=== PATIENT | female | born 1950 | race Caucasian/White ===

== ENCOUNTER → 2016-11-17 | Outpatient (CLI) | payer MEDICARE, MEDICAID ==
[~2016-11-17] MED LIST: /ESOM40CA OR; /ONDA4TA OR; /WARF25TA OR; ACET65TA OR; ALLE25CA OR; ALPR0.25 OR; ATEN50TA2 OR; ATEN50TA2 PO; BISA10SU2 PR; BISA5TA OR; CALC500T49 OR; CALTTAB5 PO; CEFT500T OR; CENTTAB36 PO; CEPACOL MT; COUM2.5T17 PO; CYMBALTA PO; FERR325T OR; FISH1000; FLEXERIL PO; HYDROCODONE PO; LIDO4CRE2 EX; MILKSUS OR; MORP15TASA PO; MYRB50TA PO; NEUR300C OR; NEUR600T OR; NEXI40CA PO; NORV5TAB OR; NORV5TAB PO; NYSTPOW4 TOP; OXYC10TA97 OR; OXYC1TAB23 PO; PERC5TAB12 PO; PERC5TAB8 OR; PERC7.5T8 OR; PRED10TA2 OR; PRIN10TA OR; SERT50TA PO; SERTRALINE PO; SIMV20TA2 OR; TIZA4TAB OR; TRAM50TA2 OR; TRAZ-136 PO; VIST25CA PO; VITA500046 PO; VITA500T; VITA500T3 PO; VITAMIN D PO; XANA0.25 OR; ZOFR8TAB PO; ZOLO100T OR; glucosamine PO; lotrimin PV
--- NOTE | 2016-11-17 12:10 | REP ---
Clinical: Chest pain, hypertension and history of anxiety disorder . Comparison: 05/06/2015 . Technique: PA and lateral. Findings: The mediastinum and cardiac silhouette are normal. The lung valles are clear and without acute consolidation, effusion, or pneumothorax. The skeletal structures are intact and normal. Impression: 1. No acute cardiopulmonary process. Signed by Rodolfo Coyne MD 11/17/2016 12:01 P
[2016-11-17 12:19] LABS: MEAN CORPUSCULAR HEMOGLOBIN 32.9 pg (27.0-33.0); MEAN CORPUSCULAR HGB CONC 33.8 g/dl (32.0-36.5); MEAN CORPUSCULAR VOLUME 97.1 fl (80.0-96.0); WHITE BLOOD COUNT 10.6 K/mm3 (4.0-10.0)
[2016-11-17 12:22] LABS: INR 0.94
[2016-11-17 12:37] LABS: ALBUMIN/GLOBULIN RATIO 1.14 (1.00-1.93); ALKALINE PHOSPHATASE 91 U/L (45-117); ALT/SGPT 16 U/L (12-78); ANION GAP 4 MEQ/L (8-16); AST/SGOT 8 U/L (15-37); BILIRUBIN,TOTAL 0.7 MG/DL (0.2-1.0); BLOOD UREA NITROGEN 18 MG/DL (7-18); CALCIUM LEVEL 9.5 MG/DL (8.8-10.2); CARBON DIOXIDE LEVEL 33 MEQ/L (21-32); CHLORIDE LEVEL 108 MEQ/L (98-107); CREATININE FOR GFR 0.74 MG/DL (0.55-1.02); GLOMERULAR FILTRATION RATE > 60.0 (>45); GLUCOSE, FASTING 93 MG/DL (80-110); SODIUM LEVEL 145 MEQ/L (136-145); TOTAL PROTEIN 7.5 GM/DL (6.4-8.2)
[2016-11-17 12:57] LABS: CALCIUM OXALATE CRYSTALS LARGE
--- NOTE | 2016-11-18 07:42 | ECGEPIP ---
Stationary ECG Study [facility] Test Date: 2016-11-17 Pat Name: FCO LOREDO Department: Room: - Gender: F Chemical Radiation Technician: JIHAN : 1950 Requested By: Yovanny Levy Order Number: [id number] Reading MD: Colin Hartmann Measurements Intervals [place] Rate: 59 P: 56 AK: 219 QRS: 77 QRSD: 85 T: 20 QT: 438 QTc: 436 Interpretive Statements SINUS BRADYCARDIA WITH FIRST DEGREE AV BLOCK SIMILAR TO 06/19/11 Electronically Signed On 11-18-2016 7:42:27 EDT by Colin Hartmann
== END ==
LOC: M ADMPAT 10:13
PROVIDERS: ATTEND Orthopaedic Surgery
DX: Z01.818 Encounter for other preprocedural examination (principal); M16.12 Unilateral primary osteoarthritis, left hip; Z79.899 Other long term (current) drug therapy

== ENCOUNTER 2016-12-01 06:32 | Inpatient (IN) | payer MEDICARE, MEDICAID ==
[2016-11-17 10:29] VITALS: BP 114/72
--- NOTE | 2016-11-27 18:50 | HPE ---
DATE OF ADMISSION: 12/01/2016 CHIEF COMPLAINT: Left hip pain and stiffness. HISTORY: Patient is a pleasant 65-year-old female with continued left hip pain and stiffness. She has failed to improve with conservative measures. She continues to have pain with activities of daily living and weightbearing activities. She has consented for an elective left total hip arthroplasty with Dr. Levy. Medical optimization received from Dr. Kate's office and reviewed during appointment today. PAST MEDICAL HISTORY: Sleep apnea, anemia, anxiety, depression, hyperlipidemia, gastroesophageal reflux disease, history of stroke, history of Oneil's esophagus. CURRENT MEDICATIONS: - atenolol 50 mg twice day - hydroxyzine 25 mg as needed every 8 hours - Nexium 40 mg twice daily - trazodone 100 mg 1 tablet at bedtime - Zoloft 100 mg tablets two daily - vitamin D 35,000 units weekly - calcium with vitamin D twice a day - Myrbetriq 50 mg tablet once daily - Norvasc 5 mg once daily - vitamin B12 1,000 mcg daily - daily multivitamin - Percocet 5/325 every 6 hours as needed ALLERGIES: MORPHINE. PREVIOUS SURGICAL HISTORY: Right total hip arthroplasty, right total knee arthroplasty, lumpectomy, rotator cuff surgery, cholecystectomy, left carpal tunnel release, gastric bypass. SOCIAL HISTORY: Patient was never a smoker. She denies alcohol use. REVIEW OF SYSTEMS: Patient denies fevers, chills, nausea, vomiting, or diarrhea. She denies chest pain, shortness of breath, lightheadedness or headaches. She denies any cough or recent upper respiratory tract infection symptoms. She was recently treated for a urinary tract infection and has completed her Bactrim. She continues to have left hip pain with activities of daily living and weight bearing activities. PHYSICAL EXAMINATION: She is a well nourished, well developed female in no apparent distress. She does have bruising to the left zygomatic process and cheek status-post mechanical fall. She has been treated for that. Neck- is supple without lymphadenopathy or jugular venous distension. Heart- has a regular rate and rhythm. Lungs- clear to auscultation bilaterally. Abdomen- positive bowel sounds times four. Abdomen is soft and nontender to palpation. Musculoskeletal, patient is walking with a limp favoring the left thigh. Inspection of the left hip reveal no gross abnormalities. Her skin is intact. She does have decreased motion of the hip but does have 5/5 strength of the left lower extremity. Calf is soft and nontender to palpation with no palpable cords noted. Distally she is neurovascularly intact. VITAL SIGNS: Height 62 inches, weight 158 pounds, temperature 98.1, blood pressure 120/80, heart rate 62, respirations 9. LABORATORY DATA: Chest x-ray showed no acute cardiopulmonary process. EKG sinus bradycardia with first degree AV block. Sinus culture reveals normal riley. Urine analysis is cloudy and shows 1+protein, trace ketones, 2 urobilinogen, +1 bilirubin, +1 leukocyte esterase, 5 white blood cells, and +1 bacteria. Urine culture reveals E. Coli. This is susceptible to Bactrim and patient was treated appropriately with course of this antibiotic. Prothrombin time 12.7, INR 0.94, complete blood count WBC elevated at 10.6, RBCs 4.41, hemoglobin 14.5, hematocrit 42.9, platelets 285, erythrocyte sedimentation rate 22, comprehensive metabolic profile fasting glucose 93, BUN 18, creatinine for GFR 0.74, GFR greater than 60 , sodium 145, potassium 4.0, chloride elevated at 108, carbon dioxide elevated at 33, anion gap decreased at 4, calcium 9.5, AST decreased at 8, ALT 16, alkaline phosphatase 91, total bilirubin 0.7, total protein 7.5, albumin 4.0, albumin globulin ratio 1.14. ASSESSMENT: Left hip osteoarthritis with x-rays notable for end stage degenerative changes. PLAN: Patient has consented for an elective left total hip arthroplasty with Dr. Levy. Medical optimization by Dr. Kate received. My preceptor for this patient encounter was Dr. Yovanny Levy. The preceptor was physically present in the building during the encounter and was fully available. As needed, all aspects of the patient interview, examination, medical decision making process, and medical care plan development were reviewed and approved by the preceptor. The preceptor is aware and concurs with the plan as stated in the body of this note and will attest to such by his/her cosignature. ALBER
[~2016-12-01] VITALS: Ht 157.5 cm; Wt 76.2 kg
[2016-12-01] VITALS (11 sets, daily range): BP systolic 130–166; BP diastolic 67–87; O2SAT 97–99
[~2016-12-01 06:32] MED LIST changes: +BUPIVACAINE HCL 0.25% 30 ML VIAL As Ordered ONE; -COUM2.5T17 PO; -MORP15TASA PO; -PERC5TAB12 PO; +TRANEXAMIC ACID 100 MG/ML 10ML VIAL As Ordered ONE; +ceFAZolin 1GM INJ (J0690) As Ordered ONE
[2016-12-01] MEDS ORDERED: LR 1,000 ML IV ONE (06:45)
[2016-12-01] MEDS ORDERED: LR 1,000 ML IV SCH ×2 (06:45→10:00)
[2016-12-01] MEDS ORDERED: SCOPOLAMINE 1.5 MG TRANSDERMAL As Ordered ONE (07:20)
[2016-12-01] MEDS ORDERED: EPINEPHrine INJ 1 MG/ML 1ML AMP As Ordered ONE (07:22)
[2016-12-01] MEDS ORDERED: SCOPOLAMINE 1.5 MG TRANSDERMAL TOP ONE (08:00)
[2016-12-01] MEDS ORDERED: traZODone 100 MG TAB PO SCH (09:00)
[2016-12-01] MEDS ORDERED: MIDAZOLAM INJ 2 MG/2 ML VIAL (J2250) As Ordered ONE (09:03)
[2016-12-01] MEDS ORDERED: METOCLOPRAMIDE INJ 10MG/2ML VIAL (J2765) IV PRN (10:00)
[2016-12-01] MEDS ORDERED: ONDANSETRON 4MG/2ML VIAL (J2405) IV PRN ×2 (10:00→14:00)
[2016-12-01] MEDS ORDERED: MORPHINE 2 MG/ML 1ML SYRINGE IV PRN (10:00)
[2016-12-01] MEDS: fentaNYL 100 MCG/2 ML INJECTION (J3010) IV PRN ×4 (10:15→10:30)
[2016-12-01] MEDS ORDERED: HYDROmorphone HCL 1 MG/ML SYRINGE (J1170) IV PRN ×3 (10:15→11:45)
[2016-12-01] MEDS: PERCOCET 5MG/325MG TAB PO PRN ×2 (10:25→11:00)
[2016-12-01] MEDS ORDERED: PROPOFOL 200 MG/20 ML VIAL As Ordered ONE ×3 (10:44→13:21)
[2016-12-01] MEDS ORDERED: LIDOCAINE 2% INJ 100 MG/5 ML SDV (FOR ANES.) As Ordered ONE ×2 (10:45→13:21)
[2016-12-01] MEDS ORDERED: PHENYLEPHRINE INJ 10MG/ML VIAL (J2370) As Ordered ONE ×2 (10:45→13:21)
[2016-12-01] MEDS ORDERED: ePHEDrine SULFATE 25 MG/5 ML(5MG/ML) SYRINGE As Ordered ONE ×2 (10:45→13:21)
[2016-12-01] MEDS ORDERED: FLEET ENEMA PR PRN (11:00)
[2016-12-01] MEDS ORDERED: ACETAMINOPHEN TAB 650MG DOSE (2X325MG) PO PRN (11:00)
[2016-12-01] MEDS: ONDANSETRON 4MG/2ML VIAL (J2405) IV PRN (12:49)
[2016-12-01] MEDS: LR 1,000 ML IV SCH ×2 (12:52→20:39)
[2016-12-01] MEDS ORDERED: ONDANSETRON 4MG/2ML VIAL (J2405) As Ordered ONE (13:21)
[2016-12-01] MEDS ORDERED: MORPHINE 1MG/ML IN 0.9% NACL 100ML IV BAG IV PRN (14:00)
[2016-12-01] MEDS ORDERED: EPIDURAL/PCA KEYS XX PRN (14:00)
[2016-12-01] MEDS ORDERED: NALBUPHINE HCL 10 MG/ML AMP (J2300) IV PRN (14:00)
[2016-12-01] MEDS ORDERED: NALOXONE INJ 0.4 MG/1 ML VIAL (J2310) IV PRN (14:00)
[2016-12-01] MEDS: SERTRALINE 100 MG TAB PO SCH (16:40)
[2016-12-01] MEDS ORDERED: WARFARIN SOD 5 MG TAB PO ONE (17:00)
[2016-12-01] MEDS: traZODone 100 MG TAB PO SCH (20:38)
[2016-12-01] MEDS: hydrOXYzine 50 MG TAB PO SCH (20:38)
[2016-12-01] MEDS: diphenhydrAMINE INJ 50MG/ML VIAL (J1200) IV PRN (21:54)
--- NOTE | 2016-12-01 22:04 | RO ---
DATE OF PROCEDURE: 12/01/2016 PREOPERATIVE DIAGNOSIS: Left hip osteoarthritis. POSTOPERATIVE DIAGNOSIS: Left hip osteoarthritis. PROCEDURE: Left total hip arthroplasty using AML size 12 large +1.5 36 ball and a 52 cup. SURGEON: Dr. Yovanny Levy CERAMIC RESEARCH ENGINEER: Tash Levy ANESTHESIA: Spinal ESTIMATED BLOOD LOSS: 300 mL. COMPLICATIONS: None. INDICATIONS: A 65-year woman who has had gradually worsening left hip pain. She had severe arthritis on the x-ray, and she had failed conservative management, wished to proceed with surgical treatment. She understood the nature of the procedure and the risks of bleeding, infection, damage to nerves, vessels, persistent pain, wear, loosening, dislocation, leg length inequality, blood clots, medical problems, among others and she wished proceed. DESCRIPTION OF PROCEDURE: The patient was taken to the operating room and placed in the right lateral decubitus position on the [place] positioner. All areas were padded appropriately. The left hip was prepped and draped in the usual sterile fashion. A time-out was performed. I then created a longitudinal incision over the lateral aspect the left hip and sharp dissection was carried down through subcutaneous tissue, controlled hemostasis with cautery and then incised the fascia yanci. I then divided the anterior 40% of the abductor off the hip as I gradually externally rotated the femur and exposed the femoral neck. The hip was then dislocated, and this was done with the cafeteria assistant's help. I then used the canal initiating reamer followed by the canal reamers for the AML and I selected the AML because this is what she had on her contralateral side and was very happy with it and wanted the same prosthesis. I sequentially reamed up to 11.5 and had good bony purchase. I then cut off the neck at about of a fingerbreadth or less from the lesser trochanter. I then prepared the acetabulum. The anterior posterior retractors were placed. I removed soft tissue from around the acetabulum. It was evident at this point that she seemed to be somewhat of a bleeder, seemed to be bleeding from several different areas, so I coagulated with the cautery and actually used some TXA solution to help control some of bleeding and got this under good control. I then sequentially reamed up to a size 51, had good bleeding bone and good concentric reaming and it was evident there were some osteophytes anteriorly and posteriorly. I then placed the actual cup in, impacted it in place. It was somewhat difficult to seat, but was able to get it down well and had an excellent solid feel to it. I then removed osteophytes from around the acetabulum. I inserted the liner, 36 x 52, impacted it in place and made sure it was well seated. I had irrigated multiple times prior to this. I then prepared the canal, sequentially broached up to a 12 large, which fit very well. I used the calcar planer and then a trial 1.5 36 ball was placed and reduced the hip. This had excellent feel to it, the soft tissue tension was appropriate. She was stable in flexion internal rotation, extension external rotation. There was minimal shuck in full extension and the tissue tensions were appropriate. I then removed the trial components, irrigated, impacted the size 12 large AML stem down the canal. It fit very nicely. I then placed the actual ball over the dry taper and impacted it down. I made sure it was well seated. We then reduced the hip with the cafeteria assistant's help. I irrigated again copiously and put the hip through a range of motion. I was very pleased with the stability and soft tissue tension. I then closed the deep layer with #1 Vicryl suture and then the abductor repaired with #1 Vicryl suture with at least one stitch being placed through the bone. TXA solution was placed again in this wound. I then repaired the fascia yanci with interrupted #1 Vicryl suture and then a running Stratafix suture in each direction. The cafeteria assistant helped with this. I then closed the subcu with #2-0 Vicryl, the skin with anthony. She was taken to recovery room in stable condition. There were no known complications. The sterile dressing, of course, had been applied at the end of the case. The plan will be routine postop for hip replacement. The cafeteria assistant was instrumental in reducing and dislocating the hip and assisting in wound closure.
[2016-12-02] VITALS (9 sets, daily range): BP systolic 121–142; BP diastolic 57–77; O2SAT 95–99
[2016-12-02] MEDS: diphenhydrAMINE INJ 50MG/ML VIAL (J1200) IV PRN (02:26)
--- NOTE | 2016-12-02 03:25 | CR.PDOC ---
[facility] Consultation Consultation DATE OF CONSULTATION: 12/01 PRIMARY CARE PHYSICIAN: Dr. Kate REFERRING PROVIDER: Dr. Levy ATTENDING PHYSICIAN: Dr. Levy REASON FOR CONSULTATION/CHIEF COMPLAINT: Medical management after L hip arthroplasty. HISTORY OF PRESENT ILLNESS: 65 year old female underwent elective L hip replacement. FM was consulted for medical management. When seen postoperatively, she was in a fair amount of pain. (Morphine RETAIL CLIENT MANAGER had JUST been started by ortho.) ALLERGIES: Please see below. HOME MEDICATIONS: Please see below. PAST MEDICAL HISTORY: 1. obesity, s/p gastric bypass 2. CVA 3. anxiety and depression 4. pneumonia 5. GERD PAST SURGICAL HISTORY: 1. gastric bypass 2. replacement of right hip and right knee 3. left breast lumpectomy 4. cholecystectomy 5. left carpal tunnel release FAMILY HISTORY: Father: , unknown cause Mother: hypertension SOCIAL HISTORY: Daughter is supportive and present at beginning of exam. Per our records, she lives alone. She denies ETOH and tobacco. REVIEW OF SYSTEMS: CONSTITUTIONAL: no fevers or chills HEENT: no recent colds or allergy symptoms CARDIOVASCULAR: denies chest pain, pressure, or tightness RESPIRATORY: denies cough or shortness of breath GENITOURINARY: no dysuria, urinary frequency, or urinary urgency MUSCULOSKELETAL: L leg and back pain GASTROINTESTINAL: no nausea, vomiting, or diarrhea SKIN: facial bruising, band of L leg NEUROLOGICAL: no numbness or tingling in extremities PSYCHIATRIC: anxious PHYSICAL EXAMINATION: VITAL SIGNS: Please see below. GENERAL APPEARANCE: obese elderly female, resting in bed and tearful HEENT: PERRLA, no conjunctiva RESPIRATORY: clear to auscultation bilat CARDIOVASCULAR: regular without murmur, rub, or gallop ABDOMEN: soft, nontender EXTREMITIES: bandage L hip NEUROLOGICAL: PSYCHIATRIC: anxious LABORATORY DATA: Please see below. ASSESSMENT/PLAN: 1. Hold antinypertensives, as BP somewhat low at this time. Likely restart tomorrow. 2. Treat GERD with BID PPI. 3. Pain management through ortho. (RETAIL CLIENT MANAGER pump begun.) 4. Anxiety and depression: continue SSRI Vital Signs/I&O Vital Signs Date Time Temp Pulse Resp B/P (MAP) Pulse Ox O2 Delivery O2 Flow Rate FiO2 12/02/16 02:10 97 Nasal Cannula 2.0 12/02/16 02:00 97.1 90 18 126/57 (80) I&O- Last 24 Hours up to 6 AM 12/02/16 06:00 Intake Total 2660 ml Output Total 1025 ml Balance 1635 ml Allergies Coded Allergies: No Known Drug Allergy (Verified Allergy, Unknown, 11/17/16) Home Medications Scheduled (Centrum Adults) 1 Tab Tab, 1 TAB PO DAILY, (Reported) Amlodipine Besylate (Norvasc) 5 Mg Tab, 5 MG PO DAILY, (Reported) Atenolol (Atenolol) 50 Mg Tab, 50 MG PO BID, (Reported) Calcium Carbonate (Caltrate 600) 1,500 Mg Tab, 600 MG PO DAILY, (Reported) Cholecalciferol (Vitamin D) 5,000 Unit Tab, 5,000 UNIT PO DAILY, (Reported) Cyanocobalamin (Vitamin B-12) 500 Mcg Tab, 500 MCG PO DAILY, (Reported) Esomeprazole Magnesium Trihydr (Nexium) 40 Mg Cap, 40 MG PO DAILY, (Reported) Hydroxyzine Pamoate (Vistaril) 25 Mg Cap, 25 MG PO TID, (Reported) Mirabegron Base (Myrbetriq) 50 Mg Tab, 50 MG PO DAILY, (Reported) Sertraline Hcl (Sertraline HCl) 50 Mg Tab, 100 MG PO BID, (Reported) Trazodone HCl (Trazodone HCl) 100 Mg Tab, 100 MG PO DAILY, (Reported) Scheduled PRN Lidocaine (Lidocream) 4 % Cre, 4 % EX DAILYPRN PRN for PAIN, (Reported) Ondansetron HCl (Zofran) 8 Mg Tab, 8 MG PO TIDP PRN for NAUSEA, (Reported) Oxycodone/Acetaminophen (Oxycodone/Acetaminophen 5-325 mg) 1 Tab Tab, 1 TAB PO QIDP PRN for PAIN, (Reported) DARIO BARKSDALE DO Dec 02, 2016 03:25
[2016-12-02 06:52] LABS: MEAN CORPUSCULAR HEMOGLOBIN 31.9 pg (27.0-33.0); MEAN CORPUSCULAR HGB CONC 32.8 g/dl (32.0-36.5); MEAN CORPUSCULAR VOLUME 97.1 fl (80.0-96.0); RED CELL DISTRIBUTION WIDTH 12.9 % (11.5-14.5); WHITE BLOOD COUNT 6.6 K/mm3 (4.0-10.0)
[2016-12-02 06:56] LABS: INR 1.49
[2016-12-02] MEDS ORDERED: PERCOCET 5MG/325MG TAB PO PRN (07:00)
[2016-12-02] MEDS: MOM 30ML SUSPENSION UDC PO SCH (07:48)
[2016-12-02] MEDS: ONDANSETRON 4 MG TAB (S0181) PO PRN (07:48)
[2016-12-02] MEDS: SENOKOT S TAB PO SCH ×2 (07:48→20:38)
[2016-12-02] MEDS: MIRALAX *UNIT DOSE* 17GM PACKET PO SCH (07:48)
[2016-12-02] MEDS: OMEPRAZOLE 20 MG CAP PO SCH ×2 (07:49→20:39)
[2016-12-02] MEDS: PERCOCET 5MG/325MG TAB PO PRN ×4 (07:49→20:38)
[2016-12-02] MEDS: SERTRALINE 100 MG TAB PO SCH (07:49)
--- NOTE | 2016-12-02 08:54 | REP ---
AP LATERAL LEFT HIP, TWO VIEWS: HISTORY: Hip replacement. COMPARISON: 11/06/2013. The patient is status post left hip arthroplasty. There is no acute fracture or dislocation. A small amount of air and surgical anthony are present in the overlying soft tissue. IMPRESSION: The patient is status post left hip arthroplasty. There is anatomic alignment. Signed by Hussain Degroot MD 12/02/2016 09:25 A
[2016-12-02] MEDS: diphenhydrAMINE 25 MG CAP PO PRN ×2 (11:12→17:57)
--- NOTE | 2016-12-02 15:22 | IPNPDOC ---
Subjective Date Seen The patient was seen on 12/02/16. Subjective Chief Complaint/HPI The patient is a 65-year-old female admitted with a reason for visit of Left Hip Arthritis. Events since last encounter Patient states that pain is well controlled on PO pain medications and she is able to walk with assistance to the bathroom. General: Denies: Chills, Fatigue Constitutional: Denies: Fever ENT: Denies: Head Aches Pulmonary: Denies: Dyspnea, Cough Cardiovascular: Denies: Chest Pain, Palpitations Gastrointestinal: Denies: Abdominal Pain Objective Physical Examination General Exam: Positive: Alert, Cooperative, No Acute Distress ENT Exam: Positive: Atraumatic, Mucous membr. moist/pink Chest Exam: Positive: Clear to auscultation, Normal air movement Heart Exam: Positive: Rate Normal, Regular Rhythm, Normal S1, Normal S2, Negative: Murmurs Abdomen Exam: Positive: Soft, Negative: Tenderness Extremity Exam: Negative: Edema Neuro Exam: Positive: Normal Speech, Cranial Nerves 3-12 NL Psych Exam: Positive: Mental status NL, Mood NL Assessment /Plan Problems (1) Osteoarthritis of left hip Status: Acute Response to Treatment: Stable Problem Text: POD#1 s/p Left hip arthroplasty; pain management per Ortho (2) Hypertension Status: Chronic Response to Treatment: Stable Problem Text: Continue to hold antihypertensives as BP is within normal limits. She is normally on atenolol 50 mg daily. Please note that home medication list is incorrect - patient states Dr. Kate recently lowered her amlodipine from 5 mg daily to 2.5 mg daily, so she should be discharged on 2.5 mg dose. (3) Depression Status: Chronic Problem Text: Continue sertraline, trazodone (4) GERD (gastroesophageal reflux disease) Status: Chronic Problem Text: Continue PPI Plan/VTE VTE Prophylaxis Ordered?: Yes (warfarin) VS, I&O, 24H, Fishbone Vital Signs/I&O Vital Signs Date Time Temp Pulse Resp B/P (MAP) Pulse Ox O2 Delivery O2 Flow Rate FiO2 12/02/16 15:00 Room Air 12/02/16 14:00 98.0 87 18 133/73 (93) 93 12/02/16 10:00 2.0 I&O- Last 24 Hours up to 6 AM 12/02/16 06:00 Intake Total 2780 ml Output Total 1575 ml Balance 1205 ml Laboratory Data 24H LABS Laboratory Tests 2 12/02/16 06:33: Prothrombin Time 18.4H, Prothromb Time International Ratio 1.49 CBC/BMP Laboratory Tests 12/02/16 06:33 Red Blood Count 3.50 L, Mean Corpuscular Volume 97.1 H, Mean Corpuscular Hemoglobin 31.9, Mean Corpuscular Hemoglobin Concent 32.8, Red Cell Distribution Width 12.9 PIYUSH BAR MD Dec 02, 2016 15:22
[2016-12-02] MEDS ORDERED: WARFARIN SOD 5 MG TAB PO ONE (17:00)
[2016-12-02] MEDS: traZODone 100 MG TAB PO SCH (20:37)
[2016-12-02] MEDS: hydrOXYzine 50 MG TAB PO SCH (20:38)
[2016-12-03] MEDS: PERCOCET 5MG/325MG TAB PO PRN ×6 (00:54→23:08)
[2016-12-03] MEDS: ONDANSETRON 4 MG TAB (S0181) PO PRN (04:28)
[2016-12-03 06:00] VITALS: BP 125/65
[2016-12-03 08:29] LABS: INR 1.76
[2016-12-03 08:36] LABS: MEAN CORPUSCULAR HEMOGLOBIN 32.2 pg (27.0-33.0); MEAN CORPUSCULAR HGB CONC 34.1 g/dl (32.0-36.5); MEAN CORPUSCULAR VOLUME 94.5 fl (80.0-96.0)
[2016-12-03] MEDS: MIRALAX *UNIT DOSE* 17GM PACKET PO SCH (08:37)
[2016-12-03] MEDS: MORPHINE 15 MG SA TAB PO SCH ×2 (08:37→20:49)
[2016-12-03] MEDS: OMEPRAZOLE 20 MG CAP PO SCH ×2 (08:37→20:48)
[2016-12-03] MEDS: SENOKOT S TAB PO SCH ×2 (08:37→20:49)
[2016-12-03] MEDS: ATENOLOL 50 MG TAB PO SCH ×2 (08:40→20:49)
[2016-12-03] MEDS: SERTRALINE 100 MG TAB PO SCH (08:41)
[2016-12-03] MEDS: MOM 30ML SUSPENSION UDC PO SCH (08:43)
--- NOTE | 2016-12-03 09:33 | IPNPDOC ---
Subjective Date Seen The patient was seen on 12/03/16. Subjective Chief Complaint/HPI The patient is a 65-year-old female admitted with a reason for visit of Left Hip Arthritis. Events since last encounter Pt reports reasonably pain control. She is urinating without difficulty. She has not had a BM since admission, she has bowel care ordered. Nursing without new concerns. General: Denies: Fatigue Constitutional: Denies: Chills, Fever Pulmonary: Denies: Dyspnea, Cough Cardiovascular: Denies: Chest Pain, Palpitations Gastrointestinal: Denies: Nausea, Vomiting, Diarrhea Neurological: Reports: Weakness Psych: Reports: Mood Normal Objective Physical Examination General Exam: Positive: Alert, Cooperative, No Acute Distress ENT Exam: Positive: Atraumatic, Mucous membr. moist/pink Chest Exam: Positive: Clear to auscultation, Normal air movement Heart Exam: Positive: Rate Normal, Regular Rhythm, Normal S1, Normal S2, Negative: Murmurs Abdomen Exam: Positive: Soft, Negative: Tenderness Extremity Exam: Negative: Edema Neuro Exam: Positive: Normal Speech, Cranial Nerves 3-12 NL Psych Exam: Positive: Mental status NL, Mood NL Assessment /Plan Problems (1) Osteoarthritis of left hip Status: Acute Response to Treatment: Stable Problem Text: POD#2 s/p Left hip arthroplasty; pain management, bowel care, anticoagulation per Ortho (2) Hypertension Status: Chronic Response to Treatment: Stable Problem Text: 12/03 Will resume atenolol 50 mg BID, given her elevated HR, pressures stable, monitor. Amlodipine 2.5 mg remains held. (3) Depression Status: Chronic Problem Text: Continue sertraline, trazodone (4) GERD (gastroesophageal reflux disease) Status: Chronic Problem Text: Continue PPI Plan/VTE VTE Prophylaxis Ordered?: Yes (warfarin) Plan Family Medicine Attending Note: I saw and examined Ms. Roper this morning; I d/w MARIA LUISA Goff and I agree with her note above. I agree with adding back atenolol, and I would recommend restarting amlodipine 2.5 mg upon discharge. ( KES) VS, I&O, 24H, Fishbone Vital Signs/I&O Vital Signs Date Time Temp Pulse Resp B/P (MAP) Pulse Ox O2 Delivery O2 Flow Rate FiO2 12/03/16 08:40 85 134/75 12/03/16 08:37 20 12/03/16 06:00 97.0 93 Room Air 12/02/16 10:00 2.0 I&O- Last 24 Hours up to 6 AM 12/03/16 06:00 Intake Total 1490 ml Output Total 1725 ml Balance -235 ml Laboratory Data 24H LABS Laboratory Tests 2 12/03/16 07:58: Prothrombin Time 21.1H, Prothromb Time International Ratio 1.76 CBC/BMP Laboratory Tests 12/03/16 07:58 Red Blood Count 3.29 L, Mean Corpuscular Volume 94.5, Mean Corpuscular Hemoglobin 32.2, Mean Corpuscular Hemoglobin Concent 34.1, Red Cell Distribution Width 13.0 ANTHONY GARRETT PA-C Dec 03, 2016 09:33 PIYUSH BAR MD Dec 03, 2016 14:50
[2016-12-03 10:53] VITALS: O2SAT 96
[2016-12-03 14:00] VITALS: BP 129/68
[2016-12-03] MEDS: diphenhydrAMINE 25 MG CAP PO PRN (15:22)
[2016-12-03] MEDS ORDERED: WARFARIN SOD 5 MG TAB PO ONE (17:00)
[2016-12-03] MEDS: traZODone 100 MG TAB PO SCH (20:49)
[2016-12-03] MEDS: hydrOXYzine 50 MG TAB PO SCH (20:49)
[2016-12-03 20:56] VITALS: O2SAT 92
[2016-12-03 22:00] VITALS: BP 100/65
[2016-12-04] MEDS: diphenhydrAMINE 25 MG CAP PO PRN ×3 (02:54→20:30)
[2016-12-04] MEDS: PERCOCET 5MG/325MG TAB PO PRN ×5 (02:55→21:59)
[2016-12-04 06:00] VITALS: BP 111/64
[2016-12-04 07:19] LABS: INR 1.99
[2016-12-04] MEDS: MOM 30ML SUSPENSION UDC PO SCH ×2 (08:21→08:23)
[2016-12-04] MEDS: MIRALAX *UNIT DOSE* 17GM PACKET PO SCH (08:21)
[2016-12-04] MEDS: ATENOLOL 50 MG TAB PO SCH ×2 (08:22→20:30)
[2016-12-04] MEDS: SERTRALINE 100 MG TAB PO SCH (08:22)
[2016-12-04] MEDS: SENOKOT S TAB PO SCH ×2 (08:22→20:30)
[2016-12-04] MEDS: OMEPRAZOLE 20 MG CAP PO SCH ×2 (08:22→20:30)
[2016-12-04] MEDS: MORPHINE 15 MG SA TAB PO SCH ×2 (08:23→20:31)
[2016-12-04 14:00] VITALS: BP 110/66
[2016-12-04] MEDS ORDERED: WARFARIN SOD 2.5 MG TAB PO ONE (17:00)
[2016-12-04] MEDS: ONDANSETRON 4MG/2ML VIAL (J2405) IV PRN (20:30)
[2016-12-04] MEDS: traZODone 100 MG TAB PO SCH (20:30)
[2016-12-04] MEDS: hydrOXYzine 50 MG TAB PO SCH (20:31)
[2016-12-04 22:00] VITALS: BP 122/69
[2016-12-05] MEDS: PERCOCET 5MG/325MG TAB PO PRN (03:51)
[2016-12-05 06:00] VITALS: BP 109/54
[2016-12-05 06:10] LABS: INR 2.07
[2016-12-05] MEDS ORDERED: COUM2.5T17 PO (07:29)
[2016-12-05] MEDS ORDERED: MORP15TASA PO (07:29)
[2016-12-05] MEDS ORDERED: PERC5TAB12 PO (07:29)
[2016-12-05] MEDS: SENOKOT S TAB PO SCH (09:00)
[2016-12-05] MEDS: MORPHINE 15 MG SA TAB PO SCH (09:00)
[2016-12-05] MEDS: MOM 30ML SUSPENSION UDC PO SCH (09:00)
[2016-12-05] MEDS: MIRALAX *UNIT DOSE* 17GM PACKET PO SCH (09:23)
[2016-12-05 09:25] VITALS: BP 109/54
[2016-12-05] MEDS: SERTRALINE 100 MG TAB PO SCH (09:25)
[2016-12-05] MEDS: ATENOLOL 50 MG TAB PO SCH (09:25)
[2016-12-05] MEDS: OMEPRAZOLE 20 MG CAP PO SCH (09:26)
--- NOTE | 2016-12-05 15:10 | IPNPDOC ---
Subjective Date Seen The patient was seen on 12/05/16. Subjective Chief Complaint/HPI The patient is a 65-year-old female admitted with a reason for visit of Left Hip Arthritis. Objective Physical Examination General Exam: Positive: Alert, Cooperative, No Acute Distress ENT Exam: Positive: Atraumatic, Mucous membr. moist/pink Chest Exam: Positive: Clear to auscultation, Normal air movement Heart Exam: Positive: Rate Normal, Regular Rhythm, Normal S1, Normal S2, Negative: Murmurs Abdomen Exam: Positive: Soft, Negative: Tenderness Extremity Exam: Negative: Edema Neuro Exam: Positive: Normal Speech, Cranial Nerves 3-12 NL Psych Exam: Positive: Mental status NL, Mood NL Assessment /Plan Problems (1) Osteoarthritis of left hip Status: Acute Response to Treatment: Stable Problem Text: POD#4 s/p Left hip arthroplasty; pain management, bowel care, anticoagulation per Ortho (2) Hypertension Status: Chronic Response to Treatment: Stable Problem Text: 12/05 BPs 110-120/60s; therefore, amlodipine 2.5 QD held on d/c c instruction to bring BID HBPs to PCP at f/u in 7-10D 12/03 Will resume atenolol 50 mg BID, given her elevated HR, pressures stable, monitor.. (3) Depression Status: Chronic Problem Text: Stable on home regimen (4) GERD (gastroesophageal reflux disease) Status: Chronic Problem Text: Continue PPI Plan/VTE VTE Prophylaxis Ordered?: Yes (warfarin) VS, I&O, 24H, Fishbone Vital Signs/I&O Vital Signs Date Time Temp Pulse Resp B/P (MAP) Pulse Ox O2 Delivery O2 Flow Rate FiO2 12/05/16 09:25 68 109/54 12/05/16 09:00 20 12/05/16 06:00 97.5 93 Room Air 12/03/16 10:53 0.0 I&O- Last 24 Hours up to 6 AM 12/05/16 06:00 Intake Total 1800 ml Output Total 1100 ml Balance 700 ml Laboratory Data 24H LABS Laboratory Tests 2 12/05/16 05:31: Prothrombin Time 24.0H, Prothromb Time International Ratio 2.07 Marv Bansal M.D. Dec 05, 2016 15:10
--- NOTE | 2016-12-08 14:45 | DSES ---
DATE OF ADMISSION: 12/01/2016 DATE OF DISCHARGE: 12/05/2016 ATTENDING PHYSICIAN: Dr. Yovanny Levy ADMITTING DIAGNOSIS: Left hip osteoarthritis. OTHER DIAGNOSES: 1. Obstructive sleep apnea. 2. Anemia. 3. Anxiety. 4. Depression. 5. Hyperlipidemia. 6. Hypertension. 7. Gastroesophageal reflux disease (GERD). 8. History of stroke. 9. History of Oneil's esophagus. DISCHARGE DIAGNOSIS: Left hip osteoarthritis, status post left total hip arthroplasty. HISTORY OF PRESENT ILLNESS: The patient is a pleasant 65-year-old female with continuing left hip pain and stiffness. She failed to improve with conservative measures, so she consented for an elective left total hip arthroplasty with Dr. Levy. Operation performed was left total hip arthroplasty. HOSPITALIZATION COURSE: The patient underwent a left total hip arthroplasty under spinal anesthesia, which was uneventful. Her hospital course was without complication and she was up with physical therapy (PT) per their protocol, weight bearing as tolerated on the left lower extremity. The patient was discharged on oral pain medications and will resume her preoperative medications and diet. She will use her thromboembolic deterrent stockings and take her Coumadin for 30 days postoperatively to prevent deep vein thrombosis (DVT). She will followup in our office in 12 to 14 days for a wound check and staple removal. She does agree to contact our office sooner if there is any increased pain, drainage, bleeding, redness, numbness and tingling in the left lower extremity, fever greater than 101 degrees or any other concerns. Please see medical record for additional details. [id number]
== END 2016-12-05 16:00 | disposition home health service (06) | DRG 470 ==
LOC: M OR 06:32 → M MS5PR 11:55
PROVIDERS: ADMIT Orthopaedic Surgery; ATTEND Orthopaedic Surgery
PROC: 0SRB02Z Replacement of Left Hip Joint with Metal on Polyethylene Synthetic Substitute, Open Approach (ICD-10-PCS; principal; 2016-12-01 07:30)
DX: M16.12 Unilateral primary osteoarthritis, left hip (principal); G47.30 Sleep apnea, unspecified; F41.9 Anxiety disorder, unspecified; D64.9 Anemia, unspecified; F32.9 Major depressive disorder, single episode, unspecified; E78.5 Hyperlipidemia, unspecified; R26.89 Other abnormalities of gait and mobility; I10 Essential (primary) hypertension; K21.9 Gastro-esophageal reflux disease without esophagitis; E66.9 Obesity, unspecified; K22.70 Barrett's esophagus without dysplasia; Z86.73 Personal history of transient ischemic attack (TIA), and cerebral infarction without residual deficits; Z79.891 Long term (current) use of opiate analgesic; Z79.899 Other long term (current) drug therapy; Z96.641 Presence of right artificial hip joint; Z96.651 Presence of right artificial knee joint; Z98.84 Bariatric surgery status; Z68.30 Body mass index [BMI] 30.0-30.9, adult

== ENCOUNTER → 2017-01-07 | Outpatient (REF) | payer MEDICARE, MEDICAID ==
[~2017-01-07] MED LIST changes: -BUPIVACAINE HCL 0.25% 30 ML VIAL As Ordered ONE; +COUM2.5T17 PO; +MORP15TASA PO; +PERC5TAB12 PO; -TRANEXAMIC ACID 100 MG/ML 10ML VIAL As Ordered ONE; -ceFAZolin 1GM INJ (J0690) As Ordered ONE
[2017-01-15 00:06] LABS: GC Carboxy THC 25 ng/mL (Cutoff=10)
== END ==
LOC: M LAB REF 18:15
PROVIDERS: ATTEND Physical Medicine & Rehabilitation
DX: M47.27 Other spondylosis with radiculopathy, lumbosacral region (principal)
CPT/HCPCS: 80307; G0480

== ENCOUNTER → 2017-01-15 | Outpatient (CLI) | payer MEDICARE, MEDICAID ==
--- NOTE | 2017-01-15 14:26 | REPMRS ---
Patient History The patient states she had a clinical breast exam in December 2016. Patient is postmenopausal. Family history of breast cancer in maternal aunt at age 50 and prostate cancer in maternal uncle. Digital Mammo Diagnostic Bilateral: January 15, 2017 - Exam #: [id number] Bilateral CC and MLO view(s) were taken. Technologist: Muna Bowens, Technologist Prior study comparison: August 09, 2014, bilateral digital mammo screening bilat performed at [facility], [place]. February 01, 2013, digital mammo diagnostic bilateral performed at [facility], [place]. FINDINGS: There are scattered fibroglandular densities. There has been no change in the appearance of the mammogram from the prior studies. There is a mild amount of residual fibroglandular tissue which is fairly symmetric. There is no interval development of dominant mass, architectural distortion, or clustered microcalcification suggestive of malignancy. ASSESSMENT: BI-RADS/ACR category 1 mammogram. Negative. Recommendation Routine screening mammogram in 1 year (for women over age 40). This mammogram was interpreted with the aid of an FDA-approved computer-aided dectection system. Electronically Signed By: Brian Roper MD 01/15/17 [id number]
== END ==
LOC: M RAD 12:16
PROVIDERS: ATTEND Family Medicine
DX: N64.4 Mastodynia (principal); Z78.0 Asymptomatic menopausal state

== ENCOUNTER → 2017-02-02 | Outpatient (CLI) | payer MEDICARE, MEDICAID ==
--- NOTE | 2017-02-03 08:28 | REP ---
CT MAXILLOFACIAL WITHOUT CONTRAST: 02/02/2017. CLINICAL HISTORY: 2 months post trauma. Pain left cheek. Change in appearance of the periorbital tissues. TECHNIQUE: Standard axial soft-tissue and bone windows with coronal reconstructions. FINDINGS: Nasal septum deviated towards the right side anteriorly and slightly towards the left posteriorly. Nasal spine of the maxilla and the nasal bones are without fracture. The orbital floors and maxillary sinus morales are intact. There is a septum inside each maxillary sinus as anatomic variation. No air-fluid levels or mucosal thickening. No fracture or healing fracture of the maxillary sinuses. Orbital struts, medial orbital wall, superior orbital ridge and the zygomatic arches are all intact. Ethmoid, frontal and sphenoid sinuses are clear. The globes, optic nerves, extraocular muscles and intraconal fat were all unremarkable. No periorbital swelling or mass. The skull base including mastoids and visualized portions of mandible are all unremarkable. The maxillary alveolar ridge is edentulous. There are some missing mandibular teeth as well. Basal ganglia calcifications are seen in a symmetric pattern bilaterally. Degenerative changes in the upper cervical spine with the ring of C1 intact with no evidence of fracture of those visible cervical levels. Submandibular glands, parotid glands, anterior and posterior cervical chain nodes are all unremarkable. IMPRESSION: 1. There is no evidence of soft tissue mass, fracture or healing fracture, orbital or periorbital abnormalities. Sinuses without any mucosal thickening. 2. Minimal septal deviation toward the left posteriorly and towards the right anteriorly. 3. Incidental note made of bilateral basal ganglia calcifications, a benign process. Signed by Kamaljit Diaz MD 02/03/2017 08:50 A
== END ==
LOC: M RAD 17:58
PROVIDERS: ATTEND Family Medicine
DX: J34.2 Deviated nasal septum (principal); G23.8 Other specified degenerative diseases of basal ganglia

== ENCOUNTER → 2017-02-10 | Outpatient (REF) | payer MEDICARE, MEDICAID ==
[2017-02-22 12:17] LABS: SUMMARY SEE SEPARATE REPORT
== END ==
LOC: M LAB REF 15:27
PROVIDERS: ATTEND Physical Medicine & Rehabilitation
DX: M48.07 Spinal stenosis, lumbosacral region (principal); Z79.899 Other long term (current) drug therapy

== ENCOUNTER → 2017-04-20 | Outpatient (CLI) | payer MEDICARE, MEDICAID ==
[~2017-04-20] MED LIST changes: +ARTI99.0 OU
[2017-04-20 12:07] LABS: MEAN CORPUSCULAR HEMOGLOBIN 30.6 pg (27.0-33.0); MEAN CORPUSCULAR HGB CONC 33.3 g/dl (32.0-36.5); MEAN CORPUSCULAR VOLUME 91.9 fl (80.0-96.0); PLATELET COUNT, AUTOMATED 323 10^3/uL (150-450); RED CELL DISTRIBUTION WIDTH 13.3 % (11.5-14.5); WHITE BLOOD COUNT 6.7 10^3/uL (4.0-10.0)
[2017-04-20 12:12] LABS: CALCIUM OXALATE CRYSTALS SMALL
[2017-04-20 12:17] LABS: INR 0.85
[2017-04-20 12:29] LABS: ALBUMIN 3.8 GM/DL (3.2-5.2); ALBUMIN/GLOBULIN RATIO 1.06 (1.00-1.93); ALKALINE PHOSPHATASE 102 U/L (45-117); ALT/SGPT 17 U/L (12-78); ANION GAP 4 MEQ/L (8-16); AST/SGOT 13 U/L (7-37); BILIRUBIN,TOTAL 0.7 MG/DL (0.2-1.0); BLOOD UREA NITROGEN 20 MG/DL (7-18); CALCIUM LEVEL 9.6 MG/DL (8.8-10.2); CARBON DIOXIDE LEVEL 33 MEQ/L (21-32); CHLORIDE LEVEL 105 MEQ/L (98-107); CREATININE FOR GFR 0.67 MG/DL (0.55-1.02); GLOMERULAR FILTRATION RATE > 60.0 (>45); GLUCOSE, FASTING 106 MG/DL (80-110); SODIUM LEVEL 142 MEQ/L (136-145); TOTAL PROTEIN 7.4 GM/DL (6.4-8.2)
[2017-04-20 12:46] LABS: ERYTHROCYTE SEDIMENTATION RATE 21 mm/hr (0-30)
--- NOTE | 2017-04-20 13:53 | ECGEPIP ---
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
== END ==
LOC: M ADMPAT 10:02
PROVIDERS: ATTEND Orthopaedic Surgery
DX: M17.12 Unilateral primary osteoarthritis, left knee (principal); Z79.899 Other long term (current) drug therapy; Z79.01 Long term (current) use of anticoagulants

== ENCOUNTER 2017-05-03 09:46 | Inpatient (IN) | payer MEDICARE, MEDICAID ==
[2017-04-20 10:57] VITALS: BP 96/70
--- NOTE | 2017-04-30 21:53 | HPE ---
DATE OF ADMISSION: 05/03/2017 CHIEF COMPLAINT: Left knee pain. HISTORY OF PRESENT ILLNESS: This is a pleasant 66-year-old female with progressively worsening left knee pain and stiffness. She has failed to improve with conservative treatment. She has elected for surgery for her continued symptoms. She has pain with weightbearing activities and her activities of daily living. X-rays of her knee are notable for advanced osteoarthritis of the left knee joint. She has consented for a left total knee arthroplasty by Dr. Yovanny Levy. Medical optimization was performed by Dr. Kate's office. ALLERGIES: None. CURRENT MEDICATIONS: - Percocet 5/325 one by mouth four times a day - gabapentin 100 mg three times a day - lidocaine 5% patch as directed - Nexium 40 mg a day - Myrbetriq one by mouth every day - Vistaril 25 mg - lidocaine HCl 3% cream, apply as needed - sertraline HCl 100 mg every day - Zofran 4 mg every eight hours as needed - atenolol 50 mg twice a day - recently placed on Augmentin for a left toe wound PAST MEDICAL HISTORY: Includes high blood pressure, hypothyroidism and anxiety and depression. PAST SURGICAL HISTORY: Includes right total hip, right total knee, left breast lumpectomy, left carpal tunnel, left total hip arthroplasty, and cholecystectomy. SOCIAL HISTORY: This patient is retired. Does not smoke, does not drink. FAMILY HISTORY: Noncontributory. REVIEW OF SYSTEMS: She denies chest pain, heart palpitations, cough, wheezing, difficulty breathing and shortness of breath. She denies abdominal pain, nausea, vomiting, diarrhea or constipation. She denies recent upper respiratory infection or urinary tract infection symptoms. She does complain of persistent pain in the left knee and pain with weightbearing activities in the left knee. PHYSICAL EXAMINATION GENERAL: She is well-nourished, well-developed, in no acute distress alert female. She walks with a moderate limp favoring the left lower extremity. She is not using assistive devices. VITAL SIGNS: She is 62 inches tall, weighs 181 pounds with a temperature of 97.4, blood pressure 140/78, pulse of 64 and respirations of 12. NECK: Supple without adenopathy or jugular venous distension. There were no carotid bruits appreciated upon auscultation. LUNGS: Clear to auscultation without rales or wheeze throughout. HEART: Regular rate and rhythm. ABDOMEN: Bowel sounds were present. EXTREMITIES: Examination of the knee revealed intact skin. She had decreased range of motion secondary to pain and stiffness. The limb was neurovascularly intact. LABORATORY DATA: EKG showed sinus bradycardia with sinus arrhythmia with first-degree AV block. Chest x-ray showed no acute cardiopulmonary disease processes. UA showed 1+ protein, trace ketones, 2+ leukocyte esterase, otherwise within normal limits with a specific gravity 1.027. Protime 11.6, INR 0.85. Glucose 106, BUN 20, creatinine 0.67, sodium 142, potassium 5.0. CBC was within normal limits. Sed rate was 21. Urine culture showed no growth. Nasal and sinus culture showed normal riley. IMPRESSION: Symptomatic osteoarthritis of the left knee joint. PLAN: Consented for a left total knee arthroplasty by Dr. Yovanny Levy. DATE OF 1950. .
[2017-05-03] VITALS (8 sets, daily range): BP systolic 111–148; BP diastolic 57–79; O2SAT 98
[~2017-05-03] VITALS: Ht 160 cm; Wt 81.9 kg
[2017-05-03] MEDS ORDERED: LR 1,000 ML IV SCH ×2 (10:00→14:00)
[2017-05-03] MEDS ORDERED: MIDAZOLAM INJ 2 MG/2 ML VIAL (J2250) As Ordered ONE ×2 (10:06→10:57)
[2017-05-03] MEDS ORDERED: LIDOCAINE 2% INJ 100 MG/5 ML SDV (FOR ANES.) As Ordered ONE (10:06)
[2017-05-03] MEDS ORDERED: PROPOFOL 200 MG/20 ML VIAL As Ordered ONE (10:06)
[2017-05-03] MEDS ORDERED: fentaNYL 100 MCG/2 ML INJECTION (J3010) As Ordered ONE ×2 (10:09→10:57)
[2017-05-03] MEDS ORDERED: EPINEPHrine INJ 1 MG/ML 1ML AMP As Ordered ONE (10:52)
[2017-05-03] MEDS ORDERED: BUPIVACAINE LIPOSOME/PF 1.3% 20 ML VIAL (13.3MG/ML)(EXPAREL) As Ordered ONE (10:52)
[2017-05-03] MEDS ORDERED: TRANEXAMIC ACID 100 MG/ML 10ML VIAL As Ordered ONE (10:52)
[2017-05-03] MEDS ORDERED: ceFAZolin 1GM INJ (J0690 PER 500MG) As Ordered ONE (10:52)
[2017-05-03] MEDS ORDERED: fentaNYL 100 MCG/2 ML INJECTION (J3010) IV ONE (12:00)
[2017-05-03] MEDS ORDERED: MIDAZOLAM INJ 2 MG/2 ML VIAL (J2250) IV ONE (12:00)
--- NOTE | 2017-05-03 12:05 | IPN ---
DATE: 05/03/2017 Patient seen and examined. She wished to have a left total knee arthroplasty. She understands the nature this. The risks of bleeding, infection, damage to nerves, vessels, persistent pain, wear, loosening, blood clots, medical problems, and , among others.
[2017-05-03] MEDS ORDERED: MORPHINE 1MG/ML IN 0.9% NACL 100ML IV BAG As Ordered ONE (13:35)
[2017-05-03] MEDS ORDERED: PERCOCET 5MG/325MG TAB PO PRN (14:00)
[2017-05-03] MEDS ORDERED: FLEET ENEMA PR PRN (14:00)
[2017-05-03] MEDS: LR 1,000 ML IV SCH ×2 (14:00→17:47)
[2017-05-03] MEDS ORDERED: ONDANSETRON 4MG/2ML VIAL (J2405) IV PRN ×3 (14:00→14:15)
[2017-05-03] MEDS ORDERED: fentaNYL 100 MCG/2 ML INJECTION (J3010) IV PRN (14:00)
[2017-05-03] MEDS ORDERED: HYDROmorphone HCL 1 MG/ML SYRINGE (J1170) IV PRN (14:00)
[2017-05-03] MEDS ORDERED: ACETAMINOPHEN TAB 650MG DOSE (2X325MG) PO PRN (14:00)
[2017-05-03] MEDS ORDERED: LIDOCAINE 1% MDV 20ML VIAL ONE (14:13)
[2017-05-03] MEDS ORDERED: dexameTHASONE 10 MG/1 ML VIAL PRES.FREE (J1100) ONE (14:13)
[2017-05-03] MEDS ORDERED: ROPIvacaine 0.5% 30 ML INJECTION (J2795 PER 1MG) ONE (14:13)
[2017-05-03] MEDS ORDERED: NALBUPHINE HCL 10 MG/ML AMP (J2300) IV PRN (14:15)
[2017-05-03] MEDS ORDERED: EPIDURAL/PCA KEYS XX PRN (14:15)
[2017-05-03] MEDS ORDERED: diphenhydrAMINE INJ 50MG/ML VIAL (J1200) IV PRN (14:15)
[2017-05-03] MEDS ORDERED: NALOXONE INJ 0.4 MG/1 ML VIAL (J2310) IV PRN (14:15)
[2017-05-03] MEDS ORDERED: MORPHINE 1MG/ML IN 0.9% NACL 100ML IV BAG IV PRN (14:15)
[2017-05-03] MEDS ORDERED: ONDANSETRON 4MG/2ML VIAL (J2405) As Ordered ONE (14:25)
[2017-05-03] MEDS ORDERED: GABA-283 PO (16:09)
[2017-05-03] MEDS ORDERED: METF-700 PO (16:11)
[2017-05-03] MEDS: SERTRALINE 100 MG TAB PO SCH (16:28)
[2017-05-03] MEDS: GABAPENTIN 300 MG CAP PO SCH ×2 (16:28→19:45)
[2017-05-03] MEDS ORDERED: WARFARIN SOD 5 MG TAB PO ONE (17:00)
--- NOTE | 2017-05-03 18:40 | RO ---
DATE OF PROCEDURE: 05/03/2017 PREOPERATIVE DIAGNOSIS: Left knee osteoarthritis. POSTOPERATIVE DIAGNOSIS: Left knee osteoarthritis. PROCEDURE: Left total knee arthroplasty using a PFC rotating platform cruciate retaining size 2.5 femur 2.5 tibia 10 polyethylene 32 patellar button. SURGEON: Dr. Yovanny Levy SURVEILLANCE SYSTEMS ENGINEER: Tash FOWLER ANESTHESIA: Spinal ESTIMATED BLOOD LOSS: Less than 50. COMPLICATIONS: None. INDICATIONS: 66-year-old woman who has had some gradually worsening left knee pain that is refractory to conservative management. She wished to go ahead with knee replacement. She recently went through a left hip replacement 6 months or so ago and is doing well with that. She understood the nature of the procedure the risks of bleeding, infection, damage to nerves, vessels, persistent pain, wear loosening, blood clots, medical problems, among others. PROCEDURE: The patient taken to the operating room and place supine position after spinal anesthesia was induced. The left lower extremity was prepped and draped in usual sterile fashion. Time-out was performed. Tourniquet was inflated. I created longitudinal incision over the anterior aspect the knee and sharp dissection was carried up to the subcutaneous tissue. I created a medial parapatellar arthrotomy per routine, everted the patella. There was advanced arthritis throughout the knee. The patellar femoral joint was particularly worn out and the patella was quite concave. The canal initiating reamer was used after I did a medial release and flexed the knee up. This was set at 5 of valgus and 10 mm cut. This was pinned in place and the distal femoral cut was made by the assistant department manager. I protected soft tissues. The femur was sized to be a 2.5. The pin holes were made in the end of the femur and the appropriate amount of external rotation. The size 2.5, 4-in-1 cutting guide was then secured and the remaining cuts were made. Again protecting soft tissues at all times. I then used the tibial alignment guide and at this point her soft tissue balance and PCL appeared to be appropriate for a cruciate retaining knee and I elected to go that route just try to preserve some bone and I felt that it would have had an excellent application for this particular knee. There did not appear to be this instability or subluxation intraoperatively that I appreciated on the preoperative films. So the tibial alignment guide was placed 3 degrees posterior slope. The appropriate amount of valgus and pinned this in place, making taking about 10 off the high side. I then made the proximal tibia cut removed the excess bone removed soft tissue and osteophytes from either side of the knee. Used the spacer block in a size 10 felt to be appropriate. The flexion/extension gaps were excellent. The tibial tray was then prepared the size 2.5 fit nicely and it was pinned in place, drilled broached the trial components were placed and it was noted that the PCL was intact. Once the knee had the trial components in place. I put the knee through range of motion. Excellent stability and range of motion were noted. I then freehand cut the patella removing about 5 or 6 mm of bone trying to essentially remove as little as possible to get flat surface because it was fairly scalloped and concave. This allowed for a size 32 button. Drill holes were placed. I placed the drill and the femur. The assistant department manager prepared the bone cement and I removed the trial components. I injected some of the Exparel solution in the periosteum and capsule. The knee was copiously irrigated and dried. I then cemented on the tibial component followed by placement polyethylene. The femoral component was cemented on we removed excess bone cement and then cemented on the patella which was held in place by a clamp, removing excess bone cement. Copious irrigation was performed. I then placed the TXA solution. I injected the remainder of the Exparel around the deep tissues. The final irrigation was performed. I closed the deep layer with #1 Vicryl suture interrupted followed by running Stratafix suture with each of us working in opposite directions. Excellent watertight closure was noted. I put the knee through range of motion. She had full extension. Flexion was 120 degrees with no significant tension on the repair. I irrigated again and closed subcu 2-0 Vicryl, skin with anthony. Sterile dressing was applied. Tourniquet was deflated. She was taken to recovery room in stable condition. There were no known complications. The plan will be routine postop.
[2017-05-03] MEDS: ATENOLOL 50 MG TAB PO SCH (19:44)
[2017-05-03] MEDS: PANTOPRAZOLE 40MG TAB (PROTONIX) PO SCH (19:44)
[2017-05-03] MEDS: traZODone 100 MG TAB PO SCH (19:45)
[2017-05-03] MEDS: hydrOXYzine 25 MG TAB PO SCH (19:45)
[2017-05-03] MEDS ORDERED: ENTER DRUG NAME HERE (PATIENT'S OWN MED) PO SCH (21:00)
[2017-05-04 06:00] VITALS: BP 79/50
[2017-05-04] MEDS ORDERED: PERCOCET 5MG/325MG TAB PO PRN (06:45)
[2017-05-04] MEDS ORDERED: ONDANSETRON 4 MG TAB (S0181) PO PRN (06:45)
[2017-05-04 06:55] LABS: MEAN CORPUSCULAR HEMOGLOBIN 30.9 pg (27.0-33.0); MEAN CORPUSCULAR HGB CONC 32.9 g/dl (32.0-36.5); PLATELET COUNT, AUTOMATED 181 10^3/uL (150-450); RED CELL DISTRIBUTION WIDTH 13.2 % (11.5-14.5); WHITE BLOOD COUNT 5.6 10^3/uL (4.0-10.0)
[2017-05-04 07:07] LABS: INR 1.26
--- NOTE | 2017-05-04 08:49 | IPNPDOC ---
Subjective Date Seen The patient was seen on 05/04/17. Subjective Chief Complaint/HPI The patient is a 66-year-old female admitted with a reason for visit of Left Knee Arthritis. Events since last encounter Pt without new concerns. Her pain is well controlled. General: Denies: Fatigue Constitutional: Denies: Chills, Fever ENT: Denies: Head Aches Pulmonary: Denies: Dyspnea, Cough Cardiovascular: Denies: Chest Pain, Palpitations Gastrointestinal: Denies: Nausea, Vomiting, Diarrhea Psych: Reports: Mood Normal Objective Physical Examination General Exam: Positive: Alert, No Acute Distress ENT Exam: Positive: Mucous membr. moist/pink Chest Exam: Positive: Clear to auscultation, Normal air movement Heart Exam: Positive: Rate Normal, Normal S1, Normal S2 Extremity Exam: Negative: Edema Psych Exam: Positive: Mental status NL, Mood NL Assessment /Plan Problems (1) Hypertension Status: Chronic Response to Treatment: Stable Problem Specific Plan: Monitor Clinically Problem Text: Pressures stable, cont atenolol. (2) Status post total hip replacement, left Status: Acute Response to Treatment: Stable Problem Specific Plan: Monitor Clinically Problem Text: Mgmt of pain control, bowel care, anticoagulation, PT, d/c planning per Ortho. (3) GERD (gastroesophageal reflux disease) Status: Chronic Response to Treatment: Stable Problem Specific Plan: Monitor Clinically Plan/VTE VTE Prophylaxis Ordered?: Yes VS, I&O, 24H, Fishbone Vital Signs/I&O Vital Signs Date Time Temp Pulse Resp B/P (MAP) Pulse Ox O2 Delivery O2 Flow Rate FiO2 05/04/17 06:00 99.4 73 19 79/50 (60) 90 Nasal Cannula 3.0 Laboratory Data 24H LABS Laboratory Tests 2 05/04/17 06:34: Nucleated Red Blood Cells % (auto) 0.0, Prothrombin Time 16.0H, Prothromb Time International Ratio 1.26 CBC/BMP Laboratory Tests 05/03/17 10:04 05/04/17 06:34 Red Blood Count 3.33 L, Mean Corpuscular Volume 94.0, Mean Corpuscular Hemoglobin 30.9, Mean Corpuscular Hemoglobin Concent 32.9, Red Cell Distribution Width 13.2 ANTHONY GARRETT PA-C May 04, 2017 08:48
[2017-05-04] MEDS: ATENOLOL 50 MG TAB PO SCH ×2 (09:00→19:57)
[2017-05-04] MEDS ORDERED: zolPIDEM TARTRATE 5 MG TAB PO PRN (09:15)
[2017-05-04] MEDS: MOM 30ML SUSPENSION UDC PO SCH (09:31)
[2017-05-04] MEDS: GABAPENTIN 300 MG CAP PO SCH ×4 (09:31→19:56)
[2017-05-04] MEDS: MIRALAX *UNIT DOSE* 17GM PACKET PO SCH (09:31)
[2017-05-04] MEDS: SERTRALINE 100 MG TAB PO SCH (09:32)
[2017-05-04] MEDS: SENOKOT S TAB PO SCH ×2 (09:32→19:56)
[2017-05-04] MEDS: CYANOCOBALAMIN 500 MCG TAB PO SCH (09:32)
[2017-05-04] MEDS: PANTOPRAZOLE 40MG TAB (PROTONIX) PO SCH ×2 (09:32→19:56)
[2017-05-04] MEDS: PERCOCET 5MG/325MG TAB PO PRN ×3 (09:33→20:02)
--- NOTE | 2017-05-04 12:11 | REP ---
Left knee series: Two views. History: Recheck placement. No comparison radiographs. Findings: The patient is status post left knee arthroplasty. Anterior skin anthony, soft tissue emphysema and swelling are again seen. Patellar, femoral, and tibial arthroplasty components are well aligned with respect to each other and their [place] bones. Impression: Status post left knee arthroplasty. Signed by Dave Chavarria MD 05/04/2017 04:00 P
[2017-05-04 14:00] VITALS: BP 112/55
[2017-05-04] MEDS ORDERED: WARFARIN SOD 7.5 MG TAB PO ONE (17:00)
[2017-05-04] MEDS ORDERED: WARFARIN SOD 5 MG TAB PO ONE (17:00)
[2017-05-04] MEDS: metFORMIN XR 500MG TAB *GLUCOPHAGE XR PO SCH (17:28)
[2017-05-04] MEDS: traZODone 100 MG TAB PO SCH (19:56)
[2017-05-04] MEDS: hydrOXYzine 25 MG TAB PO SCH (19:56)
[2017-05-04 22:00] VITALS: BP 137/77
[2017-05-05] MEDS: PERCOCET 5MG/325MG TAB PO PRN ×5 (00:14→20:05)
[2017-05-05 06:00] VITALS: BP 104/52
[2017-05-05 06:51] LABS: MEAN CORPUSCULAR VOLUME 94.2 fl (80.0-96.0); PLATELET COUNT, AUTOMATED 163 10^3/uL (150-450); RED CELL DISTRIBUTION WIDTH 13.4 % (11.5-14.5)
[2017-05-05 07:07] LABS: INR 1.66
[2017-05-05] MEDS: MIRALAX *UNIT DOSE* 17GM PACKET PO SCH (08:59)
[2017-05-05] MEDS: MOM 30ML SUSPENSION UDC PO SCH (08:59)
[2017-05-05] MEDS: PANTOPRAZOLE 40MG TAB (PROTONIX) PO SCH ×2 (09:00→20:04)
[2017-05-05] MEDS: CYANOCOBALAMIN 500 MCG TAB PO SCH (09:00)
[2017-05-05] MEDS: SENOKOT S TAB PO SCH ×2 (09:00→20:48)
[2017-05-05] MEDS: GABAPENTIN 300 MG CAP PO SCH ×4 (09:00→20:04)
[2017-05-05] MEDS: SERTRALINE 100 MG TAB PO SCH (09:00)
[2017-05-05] MEDS: ATENOLOL 50 MG TAB PO SCH ×2 (09:02→20:04)
--- NOTE | 2017-05-05 11:16 | IPNPDOC ---
Subjective Date Seen The patient was seen on 05/05/17. Subjective Chief Complaint/HPI The patient is a 66-year-old female admitted with a reason for visit of Left Knee Arthritis. Events since last encounter c/o pain to left knee. 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 PO meds for pain management ordered by Ortho. Pulmonary: Denies: Dyspnea, Cough Cardiovascular: Denies: Chest Pain, Palpitations, Orthopnea, Paroxysmal Noc. Dyspnea, Lt Headedness Gastrointestinal: Denies: Nausea, Vomiting, Abdominal Pain, Diarrhea, Constipation Objective Physical Examination General Exam: Positive: Alert, No Acute Distress ENT Exam: Positive: Mucous membr. moist/pink Chest Exam: Positive: Clear to auscultation, Normal air movement Heart Exam: Positive: Rate Normal, Normal S1, Normal S2 Extremity Exam: Negative: Edema Psych Exam: Positive: Mental status NL, Mood NL Assessment /Plan Problems (1) Hypertension Status: Chronic Response to Treatment: Stable Problem Specific Plan: Monitor Clinically Problem Text: Pressures stable, cont atenolol. (2) Status post total hip replacement, left Status: Acute Response to Treatment: Stable Problem Specific Plan: Monitor Clinically Problem Text: Mgmt of pain control, bowel care, anticoagulation, PT, d/c planning per Ortho. (3) GERD (gastroesophageal reflux disease) Status: Chronic Response to Treatment: Stable Problem Specific Plan: Monitor Clinically Plan/VTE VTE Prophylaxis Ordered?: Yes VS, I&O, 24H, Fishbone Vital Signs/I&O Vital Signs Date Time Temp Pulse Resp B/P (MAP) Pulse Ox O2 Delivery O2 Flow Rate FiO2 05/05/17 09:02 74 114/60 05/05/17 08:05 Nasal Cannula 2.0 05/05/17 07:30 16 05/05/17 06:00 98.2 93 I&O- Last 24 Hours up to 6 AM 05/06/17 06:00 Intake Total 260 ml Balance 260 ml Laboratory Data 24H LABS Laboratory Tests 2 05/05/17 06:38: Nucleated Red Blood Cells % (auto) 0.0, Prothrombin Time 20.0H, Prothromb Time International Ratio 1.66 CBC/BMP Laboratory Tests 05/05/17 06:38 Red Blood Count 2.77 L, Mean Corpuscular Volume 94.2, Mean Corpuscular Hemoglobin 31.0, Mean Corpuscular Hemoglobin Concent 33.0, Red Cell Distribution Width 13.[address] [facility] May 05, 2017 11:16
[2017-05-05 14:00] VITALS: BP 133/60
[2017-05-05] MEDS ORDERED: WARFARIN SOD 7.5 MG TAB PO ONE (17:00)
[2017-05-05] MEDS: metFORMIN XR 500MG TAB *GLUCOPHAGE XR PO SCH (17:10)
[2017-05-05] MEDS: traZODone 100 MG TAB PO SCH (20:04)
[2017-05-05] MEDS: hydrOXYzine 25 MG TAB PO SCH (20:04)
[2017-05-05 22:00] VITALS: BP 115/59
[2017-05-06] MEDS: PERCOCET 5MG/325MG TAB PO PRN ×4 (01:55→13:56)
[2017-05-06 06:00] VITALS: BP 112/59
[2017-05-06 07:02] LABS: BASO % 0.3 % (0.0-1.0); EOS # 0.1 10^3/uL (0.0-0.50); EOS % 1.3 % (0.0-3.0); IMMATURE GRANULOCYTE % 0.4 % (0-0); LYMPH # 1.7 10^3/uL (1.5-4.5); LYMPH % 23.9 % (24.0-44.0); MEAN CORPUSCULAR HEMOGLOBIN 31.6 pg (27.0-33.0); MEAN CORPUSCULAR HGB CONC 33.5 g/dl (32.0-36.5); MEAN CORPUSCULAR VOLUME 94.3 fl (80.0-96.0); MONO # 0.4 10^3/uL (0.0-0.8); MONO % 5.8 % (0.0-5.0); NEUTROPHILS # 4.8 10^3/uL (1.8-7.7); NEUTROPHILS % 68.3 % (36.0-66.0); PLATELET COUNT, AUTOMATED 178 10^3/uL (150-450); RED CELL DISTRIBUTION WIDTH 13.5 % (11.5-14.5)
[2017-05-06 07:12] LABS: INR 1.65
[2017-05-06 07:24] LABS: ANION GAP 6 MEQ/L (8-16); BLOOD UREA NITROGEN 17 MG/DL (7-18); CALCIUM LEVEL 8.1 MG/DL (8.8-10.2); CARBON DIOXIDE LEVEL 31 MEQ/L (21-32); CHLORIDE LEVEL 106 MEQ/L (98-107); CREATININE FOR GFR 0.41 MG/DL (0.55-1.02); GLOMERULAR FILTRATION RATE > 60.0 (>45); GLUCOSE, FASTING 109 MG/DL (80-110); POTASSIUM SERUM 3.8 MEQ/L (3.5-5.1); SODIUM LEVEL 143 MEQ/L (136-145)
[2017-05-06] MEDS ORDERED: COUM2.5T17 PO (08:20)
[2017-05-06] MEDS ORDERED: PERC5TAB12 PO (08:20)
[2017-05-06 08:21] VITALS: BP 112/59
[2017-05-06] MEDS: PANTOPRAZOLE 40MG TAB (PROTONIX) PO SCH (08:21)
[2017-05-06] MEDS: SENOKOT S TAB PO SCH (08:21)
[2017-05-06] MEDS: GABAPENTIN 300 MG CAP PO SCH ×3 (08:21→16:21)
[2017-05-06] MEDS: CYANOCOBALAMIN 500 MCG TAB PO SCH (08:21)
[2017-05-06] MEDS: SERTRALINE 100 MG TAB PO SCH (08:21)
[2017-05-06] MEDS: ATENOLOL 50 MG TAB PO SCH (08:21)
[2017-05-06] MEDS: MOM 30ML SUSPENSION UDC PO SCH (08:22)
[2017-05-06] MEDS: MIRALAX *UNIT DOSE* 17GM PACKET PO SCH (08:22)
[2017-05-06 14:00] VITALS: BP 109/57
[2017-05-06] MEDS ORDERED: WARFARIN SOD 5 MG TAB PO ONE (17:00)
--- NOTE | 2017-05-06 21:02 | IPN ---
DATE OF SERVICE: 05/06/2017 Wan is seen on [address]. Her blood pressure is under good control. No chest pain or shortness of breath. PHYSICAL EXAMINATION: 112/59, pulse 67. Lungs: Clear. Heart: Regular rhythm. Abdomen: Soft, nontender. IMPRESSION: Hypertension. PLAN: It is well controlled. At this point, we will sign off. Call if there are medical issues that develop prior to discharge.
== END 2017-05-06 16:32 | disposition home health service (06) | DRG 470 ==
LOC: M OR 09:46 → M MS5PR 14:25
PROVIDERS: ADMIT Orthopaedic Surgery; ATTEND Orthopaedic Surgery
PROC: 0SRD0J9 Replacement of Left Knee Joint with Synthetic Substitute, Cemented, Open Approach (ICD-10-PCS; principal; 2017-05-03 11:45)
DX: M17.12 Unilateral primary osteoarthritis, left knee (principal); I10 Essential (primary) hypertension; E03.9 Hypothyroidism, unspecified; F41.9 Anxiety disorder, unspecified; F32.9 Major depressive disorder, single episode, unspecified; Z96.643 Presence of artificial hip joint, bilateral; Z96.651 Presence of right artificial knee joint; K21.9 Gastro-esophageal reflux disease without esophagitis; Z98.84 Bariatric surgery status

== ENCOUNTER → 2017-05-10 | Outpatient (REF) | payer MEDICARE, MEDICAID ==
[~2017-05-10] MED LIST changes: +GABA-283 PO; +METF-700 PO
[2017-05-10 14:18] LABS: INR 1.61
== END ==
LOC: M SHH 13:55
PROVIDERS: ATTEND Nurse Practitioner Family
DX: Z51.81 Encounter for therapeutic drug level monitoring (principal); Z79.01 Long term (current) use of anticoagulants

== ENCOUNTER → 2017-05-13 | Outpatient (REF) | payer MEDICARE, MEDICAID ==
[2017-05-13 15:15] LABS: INR 1.83
== END ==
LOC: M SHH 14:49
PROVIDERS: ATTEND Nurse Practitioner Family
DX: Z79.01 Long term (current) use of anticoagulants (principal)

== ENCOUNTER → 2017-05-18 | Outpatient (CLI) | payer MEDICARE, MEDICAID ==
[2017-05-18 13:03] LABS: INR 1.91
== END ==
LOC: M LAB 12:28
PROVIDERS: ATTEND Orthopaedic Surgery
DX: Z51.81 Encounter for therapeutic drug level monitoring (principal); Z79.01 Long term (current) use of anticoagulants

== ENCOUNTER → 2017-05-20 | Outpatient (REF) | payer MEDICARE, MEDICAID ==
[2017-05-20 12:46] LABS: INR 2.45
== END ==
LOC: M SHH 11:50
DX: Z79.01 Long term (current) use of anticoagulants (principal)
CPT/HCPCS: 85610

== ENCOUNTER → 2017-05-25 | Outpatient (REF) | payer MEDICARE, MEDICAID ==
[2017-05-25 13:05] LABS: INR 1.04; PROTHROMBIN TIME 13.7 SECONDS (12.4-14.5)
== END ==
LOC: M SHH 12:13
DX: Z51.81 Encounter for therapeutic drug level monitoring (principal); Z79.01 Long term (current) use of anticoagulants
CPT/HCPCS: 85610

== ENCOUNTER → 2017-05-27 | Outpatient (REF) | payer MEDICARE, MEDICAID ==
[2017-05-27 14:26] LABS: INR 1.19; PROTHROMBIN TIME 15.3 SECONDS (12.4-14.5)
== END ==
LOC: M SHH 13:38
DX: Z51.81 Encounter for therapeutic drug level monitoring (principal); Z79.01 Long term (current) use of anticoagulants
CPT/HCPCS: 85610

== ENCOUNTER → 2017-05-31 | Outpatient (REF) | payer MEDICARE, MEDICAID ==
[2017-05-31 12:23] LABS: PROTHROMBIN TIME 18.5 SECONDS (12.4-14.5)
== END ==
LOC: M SHH 11:27
DX: Z79.01 Long term (current) use of anticoagulants (principal)
CPT/HCPCS: 85610

== ENCOUNTER 2017-09-06 09:14 | Day surgery (SDC) | payer MEDICARE, MEDICAID ==
[2017-09-06] MEDS: LR 1,000 ML IV ×4 (10:23→15:15)
[2017-09-06 10:33] LABS: BEDSIDE GLUCOSE 99 MG/DL (80-115)
[2017-09-06] MEDS: VANCOMYCIN 1000 MG/20 ML VIAL (J3370) As Ordered ×2 (11:53)
[2017-09-06] MEDS ORDERED: MIDAZOLAM INJ 2 MG/2 ML VIAL (J2250) As Ordered ×4 (11:53→12:23)
[2017-09-06] MEDS ORDERED: fentaNYL 100 MCG/2 ML INJECTION (J3010) As Ordered ×2 (11:53)
[2017-09-06] MEDS ORDERED: LIDOCAINE 2% INJ 100 MG/5 ML SDV (FOR ANES.) As Ordered ×2 (11:53)
[2017-09-06] MEDS ORDERED: PROPOFOL 200 MG/20 ML VIAL As Ordered ×6 (11:53→14:17)
[2017-09-06] MEDS ORDERED: PHENYLEPHRINE INJ 10MG/ML VIAL (J2370) As Ordered ×2 (12:45)
[2017-09-06] MEDS ORDERED: ONDANSETRON 4MG/2ML VIAL (J2405) As Ordered ×2 (12:45)
[2017-09-06] MEDS ORDERED: ePHEDrine SULFATE 25 MG/5 ML(5MG/ML) SYRINGE As Ordered ×2 (13:08)
[2017-09-06] MEDS: ISOVUE-300 61% 50ML VIAL (Q9967) As Ordered ×2 (13:27)
[2017-09-06] MEDS: MUPIROCIN 2% OINT 22 GM TUBE As Ordered ×2 (14:27)
[2017-09-06] MEDS: LIDOCAINE 1% SDV INJ 30 ML VIAL As Ordered ×2 (14:53)
[2017-09-06] MEDS ORDERED: ONDANSETRON 4MG/2ML VIAL (J2405) IV ×2 (15:15)
[2017-09-06] MEDS ORDERED: ACETAMINOPHEN TAB 650MG DOSE (2X325MG) PO ×4 (15:15→15:45)
[2017-09-06] MEDS: fentaNYL 100 MCG/2 ML INJECTION (J3010) IV ×4 (15:25→15:30)
[2017-09-06] MEDS ORDERED: ONDANSETRON 4 MG TAB (S0181) PO ×2 (15:45)
[2017-09-06] MEDS: ACETAMINOPH W/CODEINE #3 TAB UD PO ×4 (16:36→20:23)
[2017-09-06] MEDS ORDERED: SLF 3 ML SYR IV ×2 (19:00)
[2017-09-06] MEDS: ATENOLOL 25 MG TAB PO ×2 (20:21)
[2017-09-06] MEDS: OMEPRAZOLE 20 MG CAP PO ×2 (20:21)
[2017-09-06] MEDS: GABAPENTIN 300 MG CAP PO ×4 (20:22→20:23)
[2017-09-06] MEDS: SERTRALINE 100 MG TAB PO ×2 (20:24)
[2017-09-06] MEDS: hydrOXYzine 25 MG TAB PO ×2 (23:00)
[2017-09-06] MEDS: traZODone 100 MG TAB PO ×2 (23:00)
[2017-09-06] MEDS: SLF 3 ML SYR IV ×2 (23:00)
[2017-09-07] MEDS: ACETAMINOPH W/CODEINE #3 TAB UD PO ×8 (03:26→11:31)
[2017-09-07] MEDS: SLF 3 ML SYR IV ×4 (05:59→13:32)
[2017-09-07] MEDS: GABAPENTIN 300 MG CAP PO ×6 (08:55→17:00)
[2017-09-07] MEDS: ATENOLOL 25 MG TAB PO ×2 (08:56)
[2017-09-07] MEDS: SERTRALINE 100 MG TAB PO ×2 (08:56)
[2017-09-07] MEDS: CYANOCOBALAMIN 500 MCG TAB PO ×2 (08:56)
[2017-09-07] MEDS: MULTIVITAMINS/MINERALS THERAP 1 TAB PO ×2 (08:57)
[2017-09-07] MEDS: OMEPRAZOLE 20 MG CAP PO ×2 (08:58)
[2017-09-07] MEDS: CALCIUM/VITAMIN D 500 MG TAB PO ×2 (08:58)
[2017-09-07] MEDS: metFORMIN XR 500MG TAB *GLUCOPHAGE XR PO ×2 (09:00)
[2017-09-07] MEDS: CARVedilol 6.25 MG TAB PO ×2 (14:05)
[2017-09-07] MEDS ORDERED: ASCORBIC ACID 250 MG TAB PO ×2 (21:00)
[2017-09-07] MEDS ORDERED: VALSARTAN 80 MG TAB (DIOVAN) PO ×2 (21:00)
== END 2017-09-07 17:37 | disposition home or self-care (01) ==
LOC: M SDC 09:14 → M PCU 16:02
DX: I49.5 Sick sinus syndrome (principal); I10 Essential (primary) hypertension; K44.9 Diaphragmatic hernia without obstruction or gangrene; K21.9 Gastro-esophageal reflux disease without esophagitis; Z79.82 Long term (current) use of aspirin; Z79.899 Other long term (current) drug therapy; D64.9 Anemia, unspecified; F32.9 Major depressive disorder, single episode, unspecified; F41.9 Anxiety disorder, unspecified
CPT/HCPCS: 33208

== ENCOUNTER → 2017-11-03 | Outpatient (REF) | payer MEDICARE, MEDICAID ==
[2017-11-04 12:14] LABS: ANION GAP 5 MEQ/L (8-16); BLOOD UREA NITROGEN 20 MG/DL (7-18); CALCIUM LEVEL 8.8 MG/DL (8.8-10.2); CARBON DIOXIDE LEVEL 29 MEQ/L (21-32); CHLORIDE LEVEL 109 MEQ/L (98-107); CREATININE FOR GFR 0.52 MG/DL (0.55-1.30); FREE T4 0.67 NG/DL (0.76-1.46); GLOMERULAR FILTRATION RATE > 60.0 (>45); GLUCOSE, FASTING 92 MG/DL (70-100); SODIUM LEVEL 143 MEQ/L (136-145)
[2017-11-04 12:31] LABS: ESTIMATED AVERAGE GLUCOSE 91 MG/DL (60-110); HEMOGLOBIN A1c 4.8 %
[2017-11-04 12:55] LABS: MALB URINE SIEMENS 29.4 MG/L; MAU/CREAT RATIO 28.2 MCG/MG (0.0-30.0)
== END ==
LOC: M SFHCCLAY 15:44
DX: I10 Essential (primary) hypertension (principal); E11.9 Type 2 diabetes mellitus without complications
CPT/HCPCS: 84443

== ENCOUNTER → 2018-01-11 | Outpatient (REF) | payer MEDICARE, MEDICAID ==
[2018-01-11 18:30] LABS: AMORPHOUS SEDIMENT SMALL (NEGATIVE); APPEARANCE, URINE CLOUDY (CLEAR); BACTERIA, URINE AUTO NEGATIVE (NEGATIVE); BILIRUBIN, URINE AUTO NEGATIVE (NEGATIVE); BLOOD, URINE BLOOD NEGATIVE (NEGATIVE); CALCIUM OXALATE CRYSTALS LARGE; COLOR, URINE YELLOW (YELLOW); GLUCOSE, URINE (UA) AUTO NEGATIVE (NEGATIVE); KETONE, URINE AUTO NEGATIVE (NEGATIVE); LEUKOCYTE ESTERASE, URINE AUTO 1+ (NEGATIVE); MUCUS, URINE SMALL (NEGATIVE); NITRITE, URINE AUTO NEGATIVE (NEGATIVE); PROTEIN, URINE AUTO NEGATIVE (NEGATIVE); RBC, URINE AUTO 0 /HPF (0-3); SPECIFIC GRAVITY URINE AUTO 1.021 (1.002-1.035); SQUAMOUS EPITHELIAL CELL UR AU 1 /HPF (0-6); UROBILINOGEN, URINE AUTO 0.2 mg/dL (0.0-2.0); WBC, URINE AUTO 4 /HPF (0-3)
== END ==
LOC: M SMT 18:00
DX: R39.15 Urgency of urination (principal)
CPT/HCPCS: 81001

== ENCOUNTER 2018-05-04 00:12 | Inpatient (IN) | payer MEDICARE, MEDICAID ==
[2018-05-04] MEDS: MORPHINE 10 MG/ML 1ML VIAL (J2270) IV (01:13)
[2018-05-04] MEDS ORDERED: ACETAMINOPHEN TAB 650MG DOSE (2X325MG) PO (01:15)
[2018-05-04] MEDS: PERCOCET 5MG/325MG TAB PO ×3 (03:17→12:04)
[2018-05-04] MEDS: MORPHINE 4 MG/ML 1ML VIAL/SYRINGE (J2270) IV ×3 (04:51→10:19)
[2018-05-04] MEDS ORDERED: POLYVINYL ALCOHOL OPHTH SOLN 15 ML(LIQUITEARS) OU (05:00)
[2018-05-04] MEDS: LEVOTHYROXINE 25MCG TABLET (0.025MG) PO (06:32)
[2018-05-04] MEDS: HEPARIN SOD (PORCINE) 5000 UNITS/ML VIAL SC ×2 (06:32→13:06)
[2018-05-04 07:11] LABS: HEMATOCRIT 34.2 % (36.0-47.0); HEMOGLOBIN 11.2 g/dl (12.0-15.5); MEAN CORPUSCULAR HEMOGLOBIN 32.7 pg (27.0-33.0); MEAN CORPUSCULAR HGB CONC 32.7 g/dl (32.0-36.5); MEAN CORPUSCULAR VOLUME 99.7 fl (80.0-96.0); PLATELET COUNT, AUTOMATED 255 10^3/uL (150-450); RED BLOOD COUNT 3.43 10^6/uL (4.00-5.40); RED CELL DISTRIBUTION WIDTH 13.3 % (11.5-14.5); WHITE BLOOD COUNT 8.1 10^3/uL (4.0-10.0)
[2018-05-04 07:38] LABS: ANION GAP 8 MEQ/L (8-16); BLOOD UREA NITROGEN 18 MG/DL (7-18); CALCIUM LEVEL 8.3 MG/DL (8.8-10.2); CARBON DIOXIDE LEVEL 26 MEQ/L (21-32); CHLORIDE LEVEL 111 MEQ/L (98-107); GLOMERULAR FILTRATION RATE > 60.0 (>45); GLUCOSE, FASTING 101 MG/DL (70-100); POTASSIUM SERUM 3.5 MEQ/L (3.5-5.1); SODIUM LEVEL 145 MEQ/L (136-145)
[2018-05-04] MEDS: MOM 30ML SUSPENSION UDC PO (08:10)
[2018-05-04] MEDS: MIRALAX *UNIT DOSE* 17GM PACKET PO (08:11)
[2018-05-04] MEDS: PANTOPRAZOLE 40MG TAB (PROTONIX) PO (08:12)
[2018-05-04] MEDS: SENOKOT S TAB PO (08:12)
[2018-05-04] MEDS: MULTIVITAMINS/MINERALS THERAP 1 TAB PO (08:12)
[2018-05-04] MEDS: ATENOLOL 25 MG TAB PO (08:12)
[2018-05-04] MEDS: GABAPENTIN 300 MG CAP PO ×2 (08:12→12:04)
[2018-05-04] MEDS: hydrOXYzine 25 MG TAB PO (08:13)
[2018-05-04] MEDS: SERTRALINE 100 MG TAB PO (08:13)
[2018-05-04] MEDS: TOPIRAMATE (TopAMAX) 100 MG TAB PO (12:05)
[2018-05-04] MEDS ORDERED: ASCORBIC ACID 250 MG TAB PO (18:00)
[2018-05-04] MEDS ORDERED: LOSARTAN 25 MG TAB PO (21:00)
[2018-05-06] MEDS ORDERED: VITAMIN D 50,000 UNITS CAPSULE (ERGOCALCIFEROL 1.25MG) PO (12:00)
== END 2018-05-04 14:20 | DRG 561 ==
LOC: M MS5PR 00:12
DX: M97.11XA Periprosthetic fracture around internal prosthetic right knee joint, initial encounter (principal); W18.09XA Striking against other object with subsequent fall, initial encounter; Y92.009 Unspecified place in unspecified non-institutional (private) residence as the place of occurrence of the external cause; I10 Essential (primary) hypertension; E78.5 Hyperlipidemia, unspecified; K21.9 Gastro-esophageal reflux disease without esophagitis; F41.9 Anxiety disorder, unspecified; F32.9 Major depressive disorder, single episode, unspecified; E66.9 Obesity, unspecified; I48.0 Paroxysmal atrial fibrillation; Z86.73 Personal history of transient ischemic attack (TIA), and cerebral infarction without residual deficits; Z96.643 Presence of artificial hip joint, bilateral; Z98.84 Bariatric surgery status; Z96.653 Presence of artificial knee joint, bilateral; Z90.49 Acquired absence of other specified parts of digestive tract; Z95.0 Presence of cardiac pacemaker; Z79.01 Long term (current) use of anticoagulants; Z79.84 Long term (current) use of oral hypoglycemic drugs; Z79.899 Other long term (current) drug therapy

== ENCOUNTER 2018-05-04 14:25 | Inpatient (IN) | payer MEDICARE, MEDICAID ==
[2018-05-04] MEDS: PERCOCET 5MG/325MG TAB PO ×3 (14:52→20:15)
[2018-05-04] MEDS ORDERED: PERCOCET 5MG/325MG TAB PO ×2 (16:30)
[2018-05-04] MEDS ORDERED: BISACODYL 5 MG TAB PO (16:30)
[2018-05-04] MEDS ORDERED: BISACODYL 10 MG SUPP PR (16:30)
[2018-05-04] MEDS ORDERED: MOM 30ML SUSPENSION UDC PO (16:30)
[2018-05-04] MEDS: HYDROmorphone 2 MG TAB PO (17:10)
[2018-05-04] MEDS: TOPIRAMATE (TopAMAX) 100 MG TAB PO (17:46)
[2018-05-04] MEDS: ASCORBIC ACID 250 MG TAB PO (17:46)
[2018-05-04] MEDS: GABAPENTIN 300 MG CAP PO ×2 (17:47→20:14)
[2018-05-04] MEDS: SENOKOT S TAB PO (20:14)
[2018-05-04] MEDS: ATENOLOL 25 MG TAB PO (20:14)
[2018-05-04] MEDS: FERROUS GLUCONATE 324 MG TAB PO (20:14)
[2018-05-04] MEDS: LOSARTAN 25 MG TAB PO (20:14)
[2018-05-04] MEDS: zolPIDEM TARTRATE 5 MG TAB PO (20:15)
[2018-05-04] MEDS: HEPARIN SOD (PORCINE) 5000 UNITS/ML VIAL SC (21:14)
[2018-05-05] MEDS: PERCOCET 5MG/325MG TAB PO ×6 (02:44→20:31)
[2018-05-05] MEDS: HEPARIN SOD (PORCINE) 5000 UNITS/ML VIAL SC (05:35)
[2018-05-05] MEDS: LEVOTHYROXINE 25MCG TABLET (0.025MG) PO (05:35)
[2018-05-05 06:29] LABS: BASO % 0.3 % (0.0-1.0); EOS # 0.1 10^3/uL (0.0-0.50); EOS % 1.3 % (0.0-3.0); HEMATOCRIT 35.8 % (36.0-47.0); HEMOGLOBIN 11.7 g/dl (12.0-15.5); IMMATURE GRANULOCYTE % 0.3 % (0-3.0); LYMPH # 2.4 10^3/uL (1.5-4.5); LYMPH % 30.8 % (24.0-44.0); MEAN CORPUSCULAR HEMOGLOBIN 32.4 pg (27.0-33.0); MEAN CORPUSCULAR HGB CONC 32.7 g/dl (32.0-36.5); MEAN CORPUSCULAR VOLUME 99.2 fl (80.0-96.0); MONO # 0.4 10^3/uL (0.0-0.8); MONO % 5.7 % (0.0-5.0); NEUTROPHILS # 4.8 10^3/uL (1.8-7.7); NEUTROPHILS % 61.6 % (36.0-66.0); PLATELET COUNT, AUTOMATED 256 10^3/uL (150-450); RED BLOOD COUNT 3.61 10^6/uL (4.00-5.40); RED CELL DISTRIBUTION WIDTH 13.2 % (11.5-14.5); WHITE BLOOD COUNT 7.8 10^3/uL (4.0-10.0)
[2018-05-05 06:44] LABS: ALBUMIN/GLOBULIN RATIO 0.86 (1.00-1.93); ALKALINE PHOSPHATASE 102 U/L (45-117); ALT/SGPT 14 U/L (12-78); ANION GAP 7 MEQ/L (8-16); AST/SGOT 10 U/L (7-37); BILIRUBIN,TOTAL 0.5 MG/DL (0.2-1.0); BLOOD UREA NITROGEN 13 MG/DL (7-18); CALCIUM LEVEL 8.2 MG/DL (8.8-10.2); CARBON DIOXIDE LEVEL 26 MEQ/L (21-32); CHLORIDE LEVEL 110 MEQ/L (98-107); CREATININE FOR GFR 0.63 MG/DL (0.55-1.30); GLOMERULAR FILTRATION RATE > 60.0 (>45); GLUCOSE, FASTING 108 MG/DL (70-100); POTASSIUM SERUM 3.8 MEQ/L (3.5-5.1); SODIUM LEVEL 143 MEQ/L (136-145); TOTAL PROTEIN 6.5 GM/DL (6.4-8.2)
[2018-05-05] MEDS: FERROUS GLUCONATE 324 MG TAB PO ×2 (08:26→20:31)
[2018-05-05] MEDS: SERTRALINE 100 MG TAB PO (08:26)
[2018-05-05] MEDS: MULTIVITAMINS/MINERALS THERAP 1 TAB PO (08:27)
[2018-05-05] MEDS: PANTOPRAZOLE 40MG TAB (PROTONIX) PO (08:27)
[2018-05-05] MEDS: GABAPENTIN 300 MG CAP PO ×4 (08:27→20:30)
[2018-05-05] MEDS: ATENOLOL 25 MG TAB PO ×2 (08:28→20:32)
[2018-05-05] MEDS: SENOKOT S TAB PO ×2 (08:29→20:30)
[2018-05-05] MEDS: TOPIRAMATE (TopAMAX) 100 MG TAB PO ×2 (13:06→17:45)
[2018-05-05] MEDS: amLODIPine 10 MG TAB PO (14:17)
[2018-05-05] MEDS: APIXABAN 5 MG TAB (ELIQUIS) PO ×2 (14:17→20:30)
[2018-05-05] MEDS: ANALGESIC BALM CRM 120 GM TOP ×2 (16:42→20:32)
[2018-05-05] MEDS: ASCORBIC ACID 250 MG TAB PO (17:45)
[2018-05-05 19:38] LABS: BEDSIDE GLUCOSE 108 MG/DL (80-115)
[2018-05-05] MEDS: zolPIDEM TARTRATE 5 MG TAB PO (20:30)
[2018-05-05] MEDS: LOSARTAN 50 MG TAB PO (20:31)
[2018-05-05] MEDS ORDERED: PERCOCET 5MG/325MG TAB PO (21:00)
[2018-05-06] MEDS: PERCOCET 5MG/325MG TAB PO ×5 (05:01→20:57)
[2018-05-06] MEDS: LEVOTHYROXINE 25MCG TABLET (0.025MG) PO (05:53)
[2018-05-06] MEDS: SERTRALINE 100 MG TAB PO (08:38)
[2018-05-06] MEDS: MULTIVITAMINS/MINERALS THERAP 1 TAB PO (08:38)
[2018-05-06] MEDS: SENOKOT S TAB PO ×2 (08:39→20:58)
[2018-05-06] MEDS: GABAPENTIN 300 MG CAP PO ×4 (08:39→20:52)
[2018-05-06] MEDS: APIXABAN 5 MG TAB (ELIQUIS) PO ×2 (08:39→20:58)
[2018-05-06] MEDS: ATENOLOL 25 MG TAB PO ×2 (08:39→20:58)
[2018-05-06] MEDS: FERROUS GLUCONATE 324 MG TAB PO ×2 (08:39→20:58)
[2018-05-06] MEDS: PANTOPRAZOLE 40MG TAB (PROTONIX) PO (08:39)
[2018-05-06] MEDS: amLODIPine 10 MG TAB PO (08:40)
[2018-05-06] MEDS: ANALGESIC BALM CRM 120 GM TOP ×3 (09:16→20:59)
[2018-05-06] MEDS: TOPIRAMATE (TopAMAX) 100 MG TAB PO ×2 (12:11→17:02)
[2018-05-06] MEDS: VITAMIN D 50,000 UNITS CAPSULE (ERGOCALCIFEROL 1.25MG) PO (12:11)
[2018-05-06] MEDS: ASCORBIC ACID 250 MG TAB PO (17:01)
[2018-05-06 17:21] LABS: BEDSIDE GLUCOSE 129 MG/DL (80-115)
[2018-05-06] MEDS: LOSARTAN 50 MG TAB PO (20:58)
[2018-05-06] MEDS: zolPIDEM TARTRATE 5 MG TAB PO (21:08)
[2018-05-07] MEDS: PERCOCET 5MG/325MG TAB PO ×6 (01:04→20:53)
[2018-05-07] MEDS: LEVOTHYROXINE 25MCG TABLET (0.025MG) PO (05:45)
[2018-05-07 06:43] LABS: BASO % 0.4 % (0.0-1.0); EOS # 0.1 10^3/uL (0.0-0.50); EOS % 1.9 % (0.0-3.0); HEMATOCRIT 33.2 % (36.0-47.0); HEMOGLOBIN 10.6 g/dl (12.0-15.5); IMMATURE GRANULOCYTE % 0.4 % (0-3.0); LYMPH # 2.1 10^3/uL (1.5-4.5); LYMPH % 31.5 % (24.0-44.0); MEAN CORPUSCULAR HEMOGLOBIN 32.3 pg (27.0-33.0); MEAN CORPUSCULAR HGB CONC 31.9 g/dl (32.0-36.5); MEAN CORPUSCULAR VOLUME 101.2 fl (80.0-96.0); MONO # 0.4 10^3/uL (0.0-0.8); MONO % 6.3 % (0.0-5.0); NEUTROPHILS % 59.5 % (36.0-66.0); PLATELET COUNT, AUTOMATED 241 10^3/uL (150-450); RED BLOOD COUNT 3.28 10^6/uL (4.00-5.40); RED CELL DISTRIBUTION WIDTH 13.7 % (11.5-14.5); WHITE BLOOD COUNT 6.7 10^3/uL (4.0-10.0)
[2018-05-07 07:08] LABS: ANION GAP 7 MEQ/L (8-16); BLOOD UREA NITROGEN 18 MG/DL (7-18); CALCIUM LEVEL 8.2 MG/DL (8.8-10.2); CARBON DIOXIDE LEVEL 27 MEQ/L (21-32); CHLORIDE LEVEL 114 MEQ/L (98-107); CREATININE FOR GFR 0.59 MG/DL (0.55-1.30); GLOMERULAR FILTRATION RATE > 60.0 (>45); GLUCOSE, FASTING 112 MG/DL (70-100); POTASSIUM SERUM 3.8 MEQ/L (3.5-5.1); SODIUM LEVEL 148 MEQ/L (136-145)
[2018-05-07] MEDS: APIXABAN 5 MG TAB (ELIQUIS) PO ×2 (09:00→20:47)
[2018-05-07] MEDS: SENOKOT S TAB PO ×2 (09:00→20:47)
[2018-05-07] MEDS: PANTOPRAZOLE 40MG TAB (PROTONIX) PO (09:00)
[2018-05-07] MEDS: ATENOLOL 25 MG TAB PO ×2 (09:00→20:47)
[2018-05-07] MEDS: FERROUS GLUCONATE 324 MG TAB PO ×2 (09:00→20:47)
[2018-05-07] MEDS: MULTIVITAMINS/MINERALS THERAP 1 TAB PO (09:01)
[2018-05-07] MEDS: ANALGESIC BALM CRM 120 GM TOP ×3 (09:01→20:49)
[2018-05-07] MEDS: SERTRALINE 100 MG TAB PO (09:01)
[2018-05-07] MEDS: amLODIPine 10 MG TAB PO (09:01)
[2018-05-07] MEDS: GABAPENTIN 300 MG CAP PO ×4 (09:01→20:48)
[2018-05-07] MEDS: TOPIRAMATE (TopAMAX) 100 MG TAB PO ×2 (11:06→17:28)
[2018-05-07] MEDS: ASCORBIC ACID 250 MG TAB PO (17:58)
[2018-05-07] MEDS: LOSARTAN 50 MG TAB PO (20:47)
[2018-05-07] MEDS: zolPIDEM TARTRATE 5 MG TAB PO (20:54)
[2018-05-08] MEDS: LEVOTHYROXINE 25MCG TABLET (0.025MG) PO (05:25)
[2018-05-08] MEDS: PERCOCET 5MG/325MG TAB PO ×7 (05:26→23:04)
[2018-05-08 07:02] LABS: BEDSIDE GLUCOSE 123 MG/DL (80-115)
[2018-05-08] MEDS: ATENOLOL 25 MG TAB PO ×2 (08:55→21:04)
[2018-05-08] MEDS: FERROUS GLUCONATE 324 MG TAB PO ×2 (08:55→21:03)
[2018-05-08] MEDS: SERTRALINE 100 MG TAB PO (08:55)
[2018-05-08] MEDS: amLODIPine 10 MG TAB PO (08:55)
[2018-05-08] MEDS: PANTOPRAZOLE 40MG TAB (PROTONIX) PO (08:55)
[2018-05-08] MEDS: GABAPENTIN 300 MG CAP PO ×4 (08:55→21:05)
[2018-05-08] MEDS: MULTIVITAMINS/MINERALS THERAP 1 TAB PO (08:55)
[2018-05-08] MEDS: APIXABAN 5 MG TAB (ELIQUIS) PO ×2 (08:55→21:03)
[2018-05-08] MEDS: SENOKOT S TAB PO ×2 (08:56→20:59)
[2018-05-08] MEDS: ANALGESIC BALM CRM 120 GM TOP ×3 (08:56→21:04)
[2018-05-08] MEDS: TOPIRAMATE (TopAMAX) 100 MG TAB PO ×2 (13:03→17:16)
[2018-05-08] MEDS: ASCORBIC ACID 250 MG TAB PO (17:16)
[2018-05-08 19:54] LABS: BEDSIDE GLUCOSE 102 MG/DL (80-115)
[2018-05-08] MEDS: LOSARTAN 50 MG TAB PO (21:05)
[2018-05-09] MEDS: zolPIDEM TARTRATE 5 MG TAB PO ×2 (01:27→23:05)
[2018-05-09] MEDS: LEVOTHYROXINE 25MCG TABLET (0.025MG) PO (05:57)
[2018-05-09] MEDS: PERCOCET 5MG/325MG TAB PO ×6 (05:58→23:05)
[2018-05-09 06:22] LABS: BEDSIDE GLUCOSE 109 MG/DL (80-115)
[2018-05-09] MEDS: ANALGESIC BALM CRM 120 GM TOP ×3 (09:00→20:35)
[2018-05-09] MEDS: SENOKOT S TAB PO ×3 (09:14→20:38)
[2018-05-09] MEDS: amLODIPine 10 MG TAB PO (09:14)
[2018-05-09] MEDS: MULTIVITAMINS/MINERALS THERAP 1 TAB PO (09:14)
[2018-05-09] MEDS: FERROUS GLUCONATE 324 MG TAB PO ×2 (09:14→20:35)
[2018-05-09] MEDS: GABAPENTIN 300 MG CAP PO ×4 (09:15→20:33)
[2018-05-09] MEDS: APIXABAN 5 MG TAB (ELIQUIS) PO ×2 (09:15→20:34)
[2018-05-09] MEDS: SERTRALINE 100 MG TAB PO (09:15)
[2018-05-09] MEDS: PANTOPRAZOLE 40MG TAB (PROTONIX) PO (09:17)
[2018-05-09] MEDS: ATENOLOL 25 MG TAB PO ×2 (09:18→20:46)
[2018-05-09 11:58] LABS: BASO # 0.1 10^3/uL (0.0-0.2); BASO % 0.7 % (0.0-1.0); EOS # 0.1 10^3/uL (0.0-0.50); EOS % 1.6 % (0.0-3.0); HEMATOCRIT 38.1 % (36.0-47.0); HEMOGLOBIN 12.2 g/dl (12.0-15.5); IMMATURE GRANULOCYTE % 0.6 % (0-3.0); LYMPH # 1.7 10^3/uL (1.5-4.5); LYMPH % 23.9 % (24.0-44.0); MEAN CORPUSCULAR HEMOGLOBIN 32.7 pg (27.0-33.0); MEAN CORPUSCULAR VOLUME 102.1 fl (80.0-96.0); MONO # 0.3 10^3/uL (0.0-0.8); MONO % 4.5 % (0.0-5.0); NEUTROPHILS # 4.8 10^3/uL (1.8-7.7); NEUTROPHILS % 68.7 % (36.0-66.0); PLATELET COUNT, AUTOMATED 329 10^3/uL (150-450); RED BLOOD COUNT 3.73 10^6/uL (4.00-5.40); RED CELL DISTRIBUTION WIDTH 13.5 % (11.5-14.5); WHITE BLOOD COUNT 6.9 10^3/uL (4.0-10.0)
[2018-05-09 12:25] LABS: ANION GAP 10 MEQ/L (8-16); BLOOD UREA NITROGEN 21 MG/DL (7-18); CALCIUM LEVEL 8.6 MG/DL (8.8-10.2); CARBON DIOXIDE LEVEL 24 MEQ/L (21-32); CHLORIDE LEVEL 113 MEQ/L (98-107); CREATININE FOR GFR 0.74 MG/DL (0.55-1.30); GLOMERULAR FILTRATION RATE > 60.0 (>45); GLUCOSE, FASTING 135 MG/DL (70-100); POTASSIUM SERUM 4.1 MEQ/L (3.5-5.1); SODIUM LEVEL 147 MEQ/L (136-145)
[2018-05-09] MEDS: TOPIRAMATE (TopAMAX) 100 MG TAB PO ×2 (12:58→17:16)
[2018-05-09] MEDS: ASCORBIC ACID 250 MG TAB PO (17:16)
[2018-05-09] MEDS: LevoFLOXacin 250 MG TABLET PO (20:00)
[2018-05-09] MEDS: LOSARTAN 50 MG TAB PO (20:46)
[2018-05-09 23:47] LABS: AMORPHOUS SEDIMENT RFX SMALL (NEGATIVE); KETONE, URINE AUTO RFX NEGATIVE (NEGATIVE); NITRITE, URINE AUTO RFX NEGATIVE (NEGATIVE); RBC, URINE AUTO RFX 1 /HPF (0-3); SPECIFIC GRAVITY UR AUTO RFX 1.018 (1.002-1.035); SQUAM EPITHELIAL CELL UR AURFX 0 /HPF (0-6); WBC, URINE AUTO RFX 4 /HPF (0-3)
[2018-05-10 00:15] LABS: LEUKOCYTE ESTERASE UR AUTO RFX TRACE (NEGATIVE)
[2018-05-10] MEDS: LEVOTHYROXINE 25MCG TABLET (0.025MG) PO (06:13)
[2018-05-10] MEDS: LevoFLOXacin 250 MG TABLET PO (06:13)
[2018-05-10] MEDS: ACETAMINOPHEN TAB 650MG DOSE (2X325MG) PO (06:14)
[2018-05-10 06:24] LABS: BEDSIDE GLUCOSE 112 MG/DL (80-115)
[2018-05-10 07:39] LABS: ANION GAP 7 MEQ/L (8-16); BLOOD UREA NITROGEN 21 MG/DL (7-18); CALCIUM LEVEL 8.5 MG/DL (8.8-10.2); CARBON DIOXIDE LEVEL 27 MEQ/L (21-32); CHLORIDE LEVEL 112 MEQ/L (98-107); CREATININE FOR GFR 0.58 MG/DL (0.55-1.30); GLOMERULAR FILTRATION RATE > 60.0 (>45); GLUCOSE, FASTING 125 MG/DL (70-100); SODIUM LEVEL 146 MEQ/L (136-145)
[2018-05-10] MEDS: SENOKOT S TAB PO ×2 (09:06→20:18)
[2018-05-10] MEDS: SERTRALINE 100 MG TAB PO (09:07)
[2018-05-10] MEDS: amLODIPine 10 MG TAB PO (09:08)
[2018-05-10] MEDS: GABAPENTIN 300 MG CAP PO ×4 (09:08→21:34)
[2018-05-10] MEDS: PERCOCET 5MG/325MG TAB PO ×5 (09:08→21:35)
[2018-05-10] MEDS: FERROUS GLUCONATE 324 MG TAB PO ×2 (09:09→20:17)
[2018-05-10] MEDS: APIXABAN 5 MG TAB (ELIQUIS) PO ×2 (09:09→20:17)
[2018-05-10] MEDS: ATENOLOL 25 MG TAB PO ×2 (09:09→20:18)
[2018-05-10] MEDS: ANALGESIC BALM CRM 120 GM TOP ×3 (09:10→20:18)
[2018-05-10] MEDS: PANTOPRAZOLE 40MG TAB (PROTONIX) PO (09:10)
[2018-05-10] MEDS: TOPIRAMATE (TopAMAX) 100 MG TAB PO ×2 (12:59→17:45)
[2018-05-10 16:54] LABS: BEDSIDE GLUCOSE 136 MG/DL (80-115)
[2018-05-10] MEDS: ASCORBIC ACID 250 MG TAB PO (17:45)
[2018-05-10] MEDS: LOSARTAN 50 MG TAB PO (20:17)
[2018-05-10] MEDS: zolPIDEM TARTRATE 5 MG TAB PO (21:34)
[2018-05-11] MEDS: PERCOCET 5MG/325MG TAB PO ×5 (02:46→21:41)
[2018-05-11] MEDS: LevoFLOXacin 250 MG TABLET PO (05:46)
[2018-05-11] MEDS: LEVOTHYROXINE 25MCG TABLET (0.025MG) PO (05:46)
[2018-05-11 05:47] LABS: BEDSIDE GLUCOSE 113 MG/DL (80-115)
[2018-05-11] MEDS: ACETAMINOPHEN TAB 650MG DOSE (2X325MG) PO (05:47)
[2018-05-11] MEDS: SENOKOT S TAB PO ×3 (09:00→21:40)
[2018-05-11] MEDS: APIXABAN 5 MG TAB (ELIQUIS) PO ×2 (09:19→21:40)
[2018-05-11] MEDS: GABAPENTIN 300 MG CAP PO ×4 (09:19→21:42)
[2018-05-11] MEDS: amLODIPine 10 MG TAB PO (09:20)
[2018-05-11] MEDS: FERROUS GLUCONATE 324 MG TAB PO ×2 (09:20→21:40)
[2018-05-11] MEDS: SERTRALINE 100 MG TAB PO (09:20)
[2018-05-11] MEDS: ATENOLOL 25 MG TAB PO ×2 (09:20→21:42)
[2018-05-11] MEDS: PANTOPRAZOLE 40MG TAB (PROTONIX) PO (09:21)
[2018-05-11] MEDS: ANALGESIC BALM CRM 120 GM TOP ×3 (09:26→21:42)
[2018-05-11] MEDS: TOPIRAMATE (TopAMAX) 100 MG TAB PO ×2 (12:30→17:58)
[2018-05-11 17:05] LABS: BEDSIDE GLUCOSE 122 MG/DL (80-115)
[2018-05-11] MEDS: ASCORBIC ACID 250 MG TAB PO (17:58)
[2018-05-11] MEDS: LOSARTAN 50 MG TAB PO (21:40)
[2018-05-11] MEDS: zolPIDEM TARTRATE 5 MG TAB PO (22:32)
[2018-05-12] MEDS: PERCOCET 5MG/325MG TAB PO ×5 (01:42→20:56)
[2018-05-12] MEDS: LEVOTHYROXINE 25MCG TABLET (0.025MG) PO (06:16)
[2018-05-12 06:30] LABS: BEDSIDE GLUCOSE 142 MG/DL (80-115)
[2018-05-12] MEDS: SENOKOT S TAB PO ×2 (08:32→20:56)
[2018-05-12] MEDS: amLODIPine 10 MG TAB PO (08:32)
[2018-05-12] MEDS: FERROUS GLUCONATE 324 MG TAB PO ×2 (08:32→20:55)
[2018-05-12] MEDS: GABAPENTIN 300 MG CAP PO ×4 (08:32→20:55)
[2018-05-12] MEDS: APIXABAN 5 MG TAB (ELIQUIS) PO ×2 (08:32→20:55)
[2018-05-12] MEDS: PANTOPRAZOLE 40MG TAB (PROTONIX) PO (08:33)
[2018-05-12] MEDS: ATENOLOL 25 MG TAB PO ×2 (08:33→20:54)
[2018-05-12] MEDS: SERTRALINE 100 MG TAB PO (08:33)
[2018-05-12] MEDS: ANALGESIC BALM CRM 120 GM TOP ×3 (08:34→20:57)
[2018-05-12] MEDS: TOPIRAMATE (TopAMAX) 100 MG TAB PO ×2 (12:04→17:02)
[2018-05-12 16:34] LABS: BEDSIDE GLUCOSE 81 MG/DL (80-115)
[2018-05-12] MEDS: ASCORBIC ACID 250 MG TAB PO (17:02)
[2018-05-12] MEDS: LIDOCAINE 5% (LIDODERM) PATCH TD (20:54)
[2018-05-12] MEDS: zolPIDEM TARTRATE 5 MG TAB PO (20:55)
[2018-05-12] MEDS: LOSARTAN 50 MG TAB PO (20:55)
[2018-05-13] MEDS: PERCOCET 5MG/325MG TAB PO ×3 (03:59→12:50)
[2018-05-13] MEDS: LEVOTHYROXINE 25MCG TABLET (0.025MG) PO (05:41)
[2018-05-13 05:49] LABS: BEDSIDE GLUCOSE 143 MG/DL (80-115)
[2018-05-13] MEDS: PANTOPRAZOLE 40MG TAB (PROTONIX) PO (08:42)
[2018-05-13] MEDS: amLODIPine 10 MG TAB PO (08:43)
[2018-05-13] MEDS: FERROUS GLUCONATE 324 MG TAB PO ×2 (08:43→21:32)
[2018-05-13] MEDS: SENOKOT S TAB PO ×2 (08:43→21:36)
[2018-05-13] MEDS: GABAPENTIN 300 MG CAP PO ×4 (08:43→21:33)
[2018-05-13] MEDS: APIXABAN 5 MG TAB (ELIQUIS) PO ×2 (08:43→21:32)
[2018-05-13] MEDS: SERTRALINE 100 MG TAB PO (08:43)
[2018-05-13] MEDS: ATENOLOL 25 MG TAB PO ×2 (08:44→21:31)
[2018-05-13] MEDS: **NOTE PATIENT COMMENT** MISC XX (08:46)
[2018-05-13] MEDS: ANALGESIC BALM CRM 120 GM TOP ×3 (08:46→21:33)
[2018-05-13] MEDS: VITAMIN D 50,000 UNITS CAPSULE (ERGOCALCIFEROL 1.25MG) PO (12:49)
[2018-05-13] MEDS: TOPIRAMATE (TopAMAX) 100 MG TAB PO ×2 (12:49→17:36)
[2018-05-13] MEDS ORDERED: PERCOCET 5MG/325MG TAB PO (15:45)
[2018-05-13] MEDS ORDERED: HYDROmorphone 2 MG TAB PO (16:00)
[2018-05-13] MEDS: HYDROmorphone 2 MG TAB PO ×3 (16:44→21:32)
[2018-05-13] MEDS: ASCORBIC ACID 250 MG TAB PO (17:36)
[2018-05-13] MEDS: LIDOCAINE 5% (LIDODERM) PATCH TD (21:31)
[2018-05-13] MEDS: LOSARTAN 50 MG TAB PO (21:31)
[2018-05-13] MEDS: MORPHINE 15 MG SA TAB PO (21:32)
[2018-05-13] MEDS: zolPIDEM TARTRATE 5 MG TAB PO (21:35)
[2018-05-14] MEDS: ACETAMINOPHEN TAB 650MG DOSE (2X325MG) PO (02:49)
[2018-05-14] MEDS: hydrOXYzine 25 MG TAB PO (02:49)
[2018-05-14] MEDS: LEVOTHYROXINE 25MCG TABLET (0.025MG) PO (05:42)
[2018-05-14 06:38] LABS: BASO # 0.1 10^3/uL (0.0-0.2); BASO % 0.6 % (0.0-1.0); EOS # 0.2 10^3/uL (0.0-0.50); EOS % 1.9 % (0.0-3.0); HEMATOCRIT 35.4 % (36.0-47.0); HEMOGLOBIN 11.5 g/dl (12.0-15.5); IMMATURE GRANULOCYTE % 0.5 % (0-3.0); LYMPH # 2.6 10^3/uL (1.5-4.5); LYMPH % 33.3 % (24.0-44.0); MEAN CORPUSCULAR HEMOGLOBIN 32.6 pg (27.0-33.0); MEAN CORPUSCULAR HGB CONC 32.5 g/dl (32.0-36.5); MEAN CORPUSCULAR VOLUME 100.3 fl (80.0-96.0); MONO # 0.6 10^3/uL (0.0-0.8); MONO % 7.2 % (0.0-5.0); NEUTROPHILS # 4.5 10^3/uL (1.8-7.7); NEUTROPHILS % 56.5 % (36.0-66.0); PLATELET COUNT, AUTOMATED 366 10^3/uL (150-450); RED BLOOD COUNT 3.53 10^6/uL (4.00-5.40); RED CELL DISTRIBUTION WIDTH 13.4 % (11.5-14.5); WHITE BLOOD COUNT 7.9 10^3/uL (4.0-10.0)
[2018-05-14 07:04] LABS: ANION GAP 7 MEQ/L (8-16); BLOOD UREA NITROGEN 27 MG/DL (7-18); CALCIUM LEVEL 8.6 MG/DL (8.8-10.2); CARBON DIOXIDE LEVEL 27 MEQ/L (21-32); CHLORIDE LEVEL 110 MEQ/L (98-107); CREATININE FOR GFR 0.74 MG/DL (0.55-1.30); GLOMERULAR FILTRATION RATE > 60.0 (>45); GLUCOSE, FASTING 110 MG/DL (70-100); SODIUM LEVEL 144 MEQ/L (136-145)
[2018-05-14] MEDS: **NOTE PATIENT COMMENT** MISC XX (09:00)
[2018-05-14] MEDS ORDERED: PERCOCET 5MG/325MG TAB PO (09:15)
[2018-05-14] MEDS: SERTRALINE 100 MG TAB PO (09:48)
[2018-05-14] MEDS: APIXABAN 5 MG TAB (ELIQUIS) PO ×2 (09:48→20:44)
[2018-05-14] MEDS: PERCOCET 5MG/325MG TAB PO ×4 (09:48→20:46)
[2018-05-14] MEDS: PANTOPRAZOLE 40MG TAB (PROTONIX) PO (09:48)
[2018-05-14] MEDS: GABAPENTIN 300 MG CAP PO ×4 (09:48→20:44)
[2018-05-14] MEDS: SENOKOT S TAB PO ×2 (09:48→20:44)
[2018-05-14] MEDS: FERROUS GLUCONATE 324 MG TAB PO ×2 (09:48→20:44)
[2018-05-14] MEDS: amLODIPine 10 MG TAB PO (09:49)
[2018-05-14] MEDS: MORPHINE 15 MG SA TAB PO ×2 (09:49→20:47)
[2018-05-14] MEDS: ATENOLOL 25 MG TAB PO ×2 (09:49→20:45)
[2018-05-14] MEDS: ANALGESIC BALM CRM 120 GM TOP ×3 (09:55→20:47)
[2018-05-14] MEDS: TOPIRAMATE (TopAMAX) 100 MG TAB PO ×2 (12:34→17:42)
[2018-05-14] MEDS: ASCORBIC ACID 250 MG TAB PO (17:40)
[2018-05-14] MEDS: LIDOCAINE 5% (LIDODERM) PATCH TD (20:43)
[2018-05-14] MEDS: LOSARTAN 50 MG TAB PO (20:44)
[2018-05-14] MEDS: zolPIDEM TARTRATE 5 MG TAB PO (22:49)
[2018-05-15] MEDS: PERCOCET 5MG/325MG TAB PO ×5 (03:32→21:17)
[2018-05-15] MEDS: LEVOTHYROXINE 25MCG TABLET (0.025MG) PO (05:50)
[2018-05-15 06:54] LABS: BASO # 0.1 10^3/uL (0.0-0.2); BASO % 0.7 % (0.0-1.0); EOS # 0.2 10^3/uL (0.0-0.50); EOS % 2.2 % (0.0-3.0); HEMOGLOBIN 11.8 g/dl (12.0-15.5); IMMATURE GRANULOCYTE % 0.6 % (0-3.0); LYMPH # 2.2 10^3/uL (1.5-4.5); LYMPH % 31.8 % (24.0-44.0); MEAN CORPUSCULAR HGB CONC 31.9 g/dl (32.0-36.5); MEAN CORPUSCULAR VOLUME 103.4 fl (80.0-96.0); MONO # 0.4 10^3/uL (0.0-0.8); MONO % 6.2 % (0.0-5.0); NEUTROPHILS # 4.1 10^3/uL (1.8-7.7); NEUTROPHILS % 58.5 % (36.0-66.0); PLATELET COUNT, AUTOMATED 355 10^3/uL (150-450); RED BLOOD COUNT 3.58 10^6/uL (4.00-5.40); RED CELL DISTRIBUTION WIDTH 13.4 % (11.5-14.5)
[2018-05-15 07:17] LABS: C REACTIVE PROTEIN QUANTITATIV 0.56 MG/DL (0.00-0.30)
[2018-05-15 07:40] LABS: ERYTHROCYTE SEDIMENTATION RATE 34 mm/hr (0-30)
[2018-05-15] MEDS: **NOTE PATIENT COMMENT** MISC XX (09:00)
[2018-05-15] MEDS: GABAPENTIN 300 MG CAP PO ×4 (09:06→21:16)
[2018-05-15] MEDS: FERROUS GLUCONATE 324 MG TAB PO ×2 (09:06→21:16)
[2018-05-15] MEDS: SENOKOT S TAB PO ×2 (09:06→21:16)
[2018-05-15] MEDS: PANTOPRAZOLE 40MG TAB (PROTONIX) PO (09:06)
[2018-05-15] MEDS: SERTRALINE 100 MG TAB PO (09:06)
[2018-05-15] MEDS: MORPHINE 15 MG SA TAB PO ×2 (09:07→21:16)
[2018-05-15] MEDS: APIXABAN 5 MG TAB (ELIQUIS) PO ×2 (09:07→21:16)
[2018-05-15] MEDS: amLODIPine 10 MG TAB PO (09:08)
[2018-05-15] MEDS: ATENOLOL 25 MG TAB PO ×2 (09:08→21:19)
[2018-05-15] MEDS: ANALGESIC BALM CRM 120 GM TOP ×3 (09:10→21:15)
[2018-05-15] MEDS: TOPIRAMATE (TopAMAX) 100 MG TAB PO ×2 (12:20→17:03)
[2018-05-15] MEDS: ASCORBIC ACID 250 MG TAB PO (17:03)
[2018-05-15] MEDS: LOSARTAN 50 MG TAB PO (21:00)
[2018-05-15] MEDS: LIDOCAINE 5% (LIDODERM) PATCH TD (21:16)
[2018-05-15] MEDS: zolPIDEM TARTRATE 5 MG TAB PO (21:16)
[2018-05-16] MEDS: LEVOTHYROXINE 25MCG TABLET (0.025MG) PO (05:59)
[2018-05-16] MEDS: APIXABAN 5 MG TAB (ELIQUIS) PO ×2 (08:35→20:49)
[2018-05-16] MEDS: PANTOPRAZOLE 40MG TAB (PROTONIX) PO (08:35)
[2018-05-16] MEDS: FERROUS GLUCONATE 324 MG TAB PO ×2 (08:36→20:49)
[2018-05-16] MEDS: ATENOLOL 25 MG TAB PO ×2 (08:36→20:50)
[2018-05-16] MEDS: SERTRALINE 100 MG TAB PO (08:36)
[2018-05-16] MEDS: GABAPENTIN 300 MG CAP PO ×4 (08:36→20:49)
[2018-05-16] MEDS: amLODIPine 10 MG TAB PO (08:36)
[2018-05-16] MEDS: SENOKOT S TAB PO ×2 (08:36→20:49)
[2018-05-16] MEDS: PERCOCET 5MG/325MG TAB PO ×4 (08:37→20:51)
[2018-05-16] MEDS: MORPHINE 15 MG SA TAB PO ×2 (08:37→20:51)
[2018-05-16] MEDS: **NOTE PATIENT COMMENT** MISC XX (08:38)
[2018-05-16] MEDS: ANALGESIC BALM CRM 120 GM TOP ×3 (08:38→20:52)
[2018-05-16] MEDS: TOPIRAMATE (TopAMAX) 100 MG TAB PO ×2 (12:47→17:22)
[2018-05-16] MEDS: ASCORBIC ACID 250 MG TAB PO (17:22)
[2018-05-16] MEDS: zolPIDEM TARTRATE 5 MG TAB PO (20:49)
[2018-05-16] MEDS: LOSARTAN 50 MG TAB PO (20:50)
[2018-05-16] MEDS: LIDOCAINE 5% (LIDODERM) PATCH TD (20:52)
[2018-05-17] MEDS: PERCOCET 5MG/325MG TAB PO ×5 (04:00→20:59)
[2018-05-17] MEDS: LEVOTHYROXINE 25MCG TABLET (0.025MG) PO (06:23)
[2018-05-17] MEDS: SERTRALINE 100 MG TAB PO (08:48)
[2018-05-17] MEDS: APIXABAN 5 MG TAB (ELIQUIS) PO ×2 (08:48→20:58)
[2018-05-17] MEDS: GABAPENTIN 300 MG CAP PO ×4 (08:49→20:59)
[2018-05-17] MEDS: SENOKOT S TAB PO ×2 (08:49→20:58)
[2018-05-17] MEDS: amLODIPine 10 MG TAB PO (08:50)
[2018-05-17] MEDS: FERROUS GLUCONATE 324 MG TAB PO ×2 (08:50→20:58)
[2018-05-17] MEDS: MORPHINE 15 MG SA TAB PO ×2 (08:50→20:58)
[2018-05-17] MEDS: PANTOPRAZOLE 40MG TAB (PROTONIX) PO (08:50)
[2018-05-17] MEDS: ATENOLOL 25 MG TAB PO ×2 (08:50→20:58)
[2018-05-17] MEDS: ANALGESIC BALM CRM 120 GM TOP ×3 (08:52→21:00)
[2018-05-17] MEDS: **NOTE PATIENT COMMENT** MISC XX (08:52)
[2018-05-17] MEDS: TOPIRAMATE (TopAMAX) 100 MG TAB PO ×2 (12:53→17:22)
[2018-05-17] MEDS: ASCORBIC ACID 250 MG TAB PO (17:24)
[2018-05-17] MEDS: LOSARTAN 50 MG TAB PO (20:57)
[2018-05-17] MEDS: LIDOCAINE 5% (LIDODERM) PATCH TD (20:59)
[2018-05-17] MEDS: zolPIDEM TARTRATE 5 MG TAB PO (22:29)
[2018-05-18] MEDS: PERCOCET 5MG/325MG TAB PO ×5 (01:07→20:57)
[2018-05-18] MEDS: LEVOTHYROXINE 25MCG TABLET (0.025MG) PO (05:16)
[2018-05-18] MEDS: tiZANidine 4 MG TAB PO (05:20)
[2018-05-18] MEDS: APIXABAN 5 MG TAB (ELIQUIS) PO ×2 (08:55→20:54)
[2018-05-18] MEDS: SENOKOT S TAB PO ×2 (08:55→20:54)
[2018-05-18] MEDS: FERROUS GLUCONATE 324 MG TAB PO ×2 (08:55→20:54)
[2018-05-18] MEDS: ATENOLOL 25 MG TAB PO ×2 (08:56→20:56)
[2018-05-18] MEDS: amLODIPine 10 MG TAB PO (08:56)
[2018-05-18] MEDS: SERTRALINE 100 MG TAB PO (08:57)
[2018-05-18] MEDS: GABAPENTIN 300 MG CAP PO ×4 (08:57→20:55)
[2018-05-18] MEDS: PANTOPRAZOLE 40MG TAB (PROTONIX) PO (08:58)
[2018-05-18] MEDS: MORPHINE 15 MG SA TAB PO ×2 (08:58→20:57)
[2018-05-18] MEDS: ANALGESIC BALM CRM 120 GM TOP ×3 (08:58→20:57)
[2018-05-18] MEDS: **NOTE PATIENT COMMENT** MISC XX (08:58)
[2018-05-18] MEDS: TOPIRAMATE (TopAMAX) 100 MG TAB PO ×2 (12:38→17:36)
[2018-05-18] MEDS: ASCORBIC ACID 250 MG TAB PO (17:36)
[2018-05-18] MEDS: hydrOXYzine 25 MG TAB PO (20:54)
[2018-05-18] MEDS: LIDOCAINE 5% (LIDODERM) PATCH TD (20:54)
[2018-05-18] MEDS: zolPIDEM TARTRATE 5 MG TAB PO (20:54)
[2018-05-18] MEDS: LOSARTAN 50 MG TAB PO (20:55)
[2018-05-18] MEDS: ONDANSETRON 4 MG TAB (S0181) PO (21:05)
[2018-05-19] MEDS: LEVOTHYROXINE 25MCG TABLET (0.025MG) PO (05:33)
[2018-05-19] MEDS: PERCOCET 5MG/325MG TAB PO ×5 (05:34→21:52)
[2018-05-19 07:00] LABS: BASO % 0.6 % (0.0-1.0); EOS # 0.2 10^3/uL (0.0-0.50); EOS % 2.7 % (0.0-3.0); HEMATOCRIT 33.3 % (36.0-47.0); HEMOGLOBIN 10.5 g/dl (12.0-15.5); IMMATURE GRANULOCYTE % 0.3 % (0-3.0); LYMPH # 2.2 10^3/uL (1.5-4.5); LYMPH % 34.8 % (24.0-44.0); MEAN CORPUSCULAR HEMOGLOBIN 32.3 pg (27.0-33.0); MEAN CORPUSCULAR HGB CONC 31.5 g/dl (32.0-36.5); MEAN CORPUSCULAR VOLUME 102.5 fl (80.0-96.0); MONO # 0.4 10^3/uL (0.0-0.8); MONO % 6.6 % (0.0-5.0); NEUTROPHILS # 3.5 10^3/uL (1.8-7.7); PLATELET COUNT, AUTOMATED 308 10^3/uL (150-450); RED BLOOD COUNT 3.25 10^6/uL (4.00-5.40); RED CELL DISTRIBUTION WIDTH 13.2 % (11.5-14.5); WHITE BLOOD COUNT 6.3 10^3/uL (4.0-10.0)
[2018-05-19 07:29] LABS: ANION GAP 5 MEQ/L (8-16); BLOOD UREA NITROGEN 24 MG/DL (7-18); C REACTIVE PROTEIN QUANTITATIV 6.88 MG/DL (0.00-0.30); CALCIUM LEVEL 8.5 MG/DL (8.8-10.2); CARBON DIOXIDE LEVEL 28 MEQ/L (21-32); CHLORIDE LEVEL 112 MEQ/L (98-107); CREATININE FOR GFR 0.57 MG/DL (0.55-1.30); GLOMERULAR FILTRATION RATE > 60.0 (>45); GLUCOSE, FASTING 106 MG/DL (70-100); POTASSIUM SERUM 3.6 MEQ/L (3.5-5.1); SODIUM LEVEL 145 MEQ/L (136-145)
[2018-05-19] MEDS: SERTRALINE 100 MG TAB PO (08:28)
[2018-05-19] MEDS: APIXABAN 5 MG TAB (ELIQUIS) PO ×2 (08:28→21:42)
[2018-05-19] MEDS: FERROUS GLUCONATE 324 MG TAB PO ×2 (08:29→21:40)
[2018-05-19] MEDS: MORPHINE 15 MG SA TAB PO ×2 (08:29→21:42)
[2018-05-19] MEDS: ATENOLOL 25 MG TAB PO ×2 (08:30→21:43)
[2018-05-19] MEDS: PANTOPRAZOLE 40MG TAB (PROTONIX) PO (08:31)
[2018-05-19] MEDS: amLODIPine 10 MG TAB PO (08:31)
[2018-05-19] MEDS: SENOKOT S TAB PO ×2 (08:31→21:41)
[2018-05-19] MEDS: GABAPENTIN 300 MG CAP PO ×4 (08:31→21:40)
[2018-05-19] MEDS: ANALGESIC BALM CRM 120 GM TOP ×3 (08:32→21:00)
[2018-05-19] MEDS: **NOTE PATIENT COMMENT** MISC XX (08:32)
[2018-05-19] MEDS: TOPIRAMATE (TopAMAX) 100 MG TAB PO ×2 (12:50→17:39)
[2018-05-19] MEDS: ASCORBIC ACID 250 MG TAB PO (17:39)
[2018-05-19] MEDS: zolPIDEM TARTRATE 5 MG TAB PO (21:41)
[2018-05-19] MEDS: LOSARTAN 50 MG TAB PO (21:42)
[2018-05-19] MEDS: LIDOCAINE 5% (LIDODERM) PATCH TD (21:44)
[2018-05-20] MEDS: PERCOCET 5MG/325MG TAB PO ×3 (04:54→12:47)
[2018-05-20] MEDS: LEVOTHYROXINE 25MCG TABLET (0.025MG) PO (06:50)
[2018-05-20] MEDS: ANALGESIC BALM CRM 120 GM TOP (09:00)
[2018-05-20] MEDS: **NOTE PATIENT COMMENT** MISC XX (09:00)
[2018-05-20] MEDS: SENOKOT S TAB PO (09:13)
[2018-05-20] MEDS: MORPHINE 15 MG SA TAB PO (09:14)
[2018-05-20] MEDS: amLODIPine 10 MG TAB PO (09:14)
[2018-05-20] MEDS: ATENOLOL 25 MG TAB PO (09:15)
[2018-05-20] MEDS: SERTRALINE 100 MG TAB PO (09:15)
[2018-05-20] MEDS: FERROUS GLUCONATE 324 MG TAB PO (09:15)
[2018-05-20] MEDS: GABAPENTIN 300 MG CAP PO ×2 (09:15→12:47)
[2018-05-20] MEDS: APIXABAN 5 MG TAB (ELIQUIS) PO (09:15)
[2018-05-20] MEDS: PANTOPRAZOLE 40MG TAB (PROTONIX) PO (09:16)
[2018-05-20] MEDS: VITAMIN D 50,000 UNITS CAPSULE (ERGOCALCIFEROL 1.25MG) PO (12:47)
[2018-05-20] MEDS: TOPIRAMATE (TopAMAX) 100 MG TAB PO (12:47)
== END 2018-05-20 13:00 | disposition home health service (06) | DRG 560 ==
LOC: M PM&R 05-12 15:18
DX: M97.11XD Periprosthetic fracture around internal prosthetic right knee joint, subsequent encounter (principal); N39.0 Urinary tract infection, site not specified; I10 Essential (primary) hypertension; Z86.73 Personal history of transient ischemic attack (TIA), and cerebral infarction without residual deficits; I48.0 Paroxysmal atrial fibrillation; E78.5 Hyperlipidemia, unspecified; E66.9 Obesity, unspecified; Z98.84 Bariatric surgery status; Z79.01 Long term (current) use of anticoagulants; Z79.84 Long term (current) use of oral hypoglycemic drugs; Z79.899 Other long term (current) drug therapy; W19.XXXD Unspecified fall, subsequent encounter; Y92.009 Unspecified place in unspecified non-institutional (private) residence as the place of occurrence of the external cause; G47.33 Obstructive sleep apnea (adult) (pediatric); Z96.651 Presence of right artificial knee joint; Z96.652 Presence of left artificial knee joint; Z96.641 Presence of right artificial hip joint; Z96.642 Presence of left artificial hip joint

== ENCOUNTER → 2018-08-02 | Outpatient (REF) | payer MEDICARE, MEDICAID ==
[~2018-08-02] MED LIST changes: -/ESOM40CA OR; -/ONDA4TA OR; -/WARF25TA OR; +ACET-716 PO; +AMLO10TA5 PO; +ASCO500T PO; +ASPI81TA85 PO; +ATEN25TA PO; +CALCTAB6 PO; +CARV6.25 PO; +COUM1TAB18 OR; +COZA50TA PO; +DIOV80TA3 PO; +Docusate Sod/Senna PO; +ELIQ5TAB PO; +FERR32TA PO; -GABA-283 PO; +GABA-843 PO; +GABA-845 PO; +GABA600T4 PO; +HYDR1CAP25 PO; +LEVO25TA5 PO; +LOSA25TA14 PO; +METF500T4 PO; +NEXI1CAP3 OR; +ONDA-1 OR; +ONDA8TAB7 PO; +PERCOCET PO; +SERT-138 PO; +SERT-141 PO; -SERT50TA PO; +SYNT25TA PO; +TIZA-208 PO; +TOPA100T12 PO; +TOPI100T9 PO; -TRAZ-136 PO; +TRAZ-163 PO; +VITA-193 PO; +VITA1TAB23 PO; +VITA50005 PO; +VITMTA PO; +ZANA4TAB PO; -ZOFR8TAB PO; +ZOFR8TAB24 PO
[2018-08-02 17:16] LABS: ALBUMIN 3.7 GM/DL (3.2-5.2); ALT/SGPT 17 U/L (12-78); BILIRUBIN,TOTAL 0.3 MG/DL (0.2-1.0); BLOOD UREA NITROGEN 19 MG/DL (7-18); CARBON DIOXIDE LEVEL 29 MEQ/L (21-32); CHLORIDE LEVEL 110 MEQ/L (98-107); GLOMERULAR FILTRATION RATE > 60.0 (>45); GLUCOSE, FASTING 93 MG/DL (70-100); IRON (FE) 86 UG/DL (50-170); PERCENT SATURATION 25.9 % (13.2-45.0); POTASSIUM SERUM 4.2 MEQ/L (3.5-5.1); SODIUM LEVEL 145 MEQ/L (136-145); TOTAL IRON BINDING CAPACITY 332 UG/DL (250-450); TOTAL PROTEIN 7.2 GM/DL (6.4-8.2)
[2018-08-02 17:17] LABS: HEMATOCRIT 38.5 % (36.0-47.0); HEMOGLOBIN 12.5 g/dl (12.0-15.5); MEAN CORPUSCULAR HEMOGLOBIN 30.8 pg (27.0-33.0); MEAN CORPUSCULAR HGB CONC 32.5 g/dl (32.0-36.5); MEAN CORPUSCULAR VOLUME 94.8 fl (80.0-96.0); PLATELET COUNT, AUTOMATED 305 10^3/uL (150-450); RED BLOOD COUNT 4.06 10^6/uL (4.00-5.40); WHITE BLOOD COUNT 7.2 10^3/uL (4.0-10.0)
[2018-08-02 17:20] LABS: PTH INTACT 37.2 PG/ML (18.5-88.0)
[2018-08-02 17:45] LABS: HEMOGLOBIN A1c 5.5 %
== END ==
LOC: M SFHCCLAY 10:26
PROVIDERS: ATTEND Family Medicine
DX: I10 Essential (primary) hypertension (principal); R51 Headache; E11.9 Type 2 diabetes mellitus without complications; Z98.84 Bariatric surgery status
CPT/HCPCS: 80053; 83036; 83550; 83970; 85027; G0463

== ENCOUNTER → 2019-02-03 | Outpatient (CLI) | payer MEDICARE, MEDICAID ==
[~2019-02-03] MED LIST changes: -ARTI99.0 OU; +ARTIDRO2 OU; +CYAN500T8 PO; +CYAN500T9 PO; +METF-791 PO; -METF500T4 PO; -TIZA-208 PO; +TIZA4TAB4 PO; -VITA-193 PO; -VITA500T3 PO
--- NOTE | 2019-02-03 12:43 | REPMRS ---
Patient History The patient states she had a clinical breast exam in January 2019. Family history of breast cancer at age 50 in maternal aunt, prostate cancer in maternal uncle. 3D TOMOSYNTHESIS WAS PERFORMED. The Tiffani Dasilva lifetime risk for breast cancer is 6.4%. Digital Mammo Diagnostic Bilateral: February 03, 2019 - Exam #: [id number] Bilateral CC and MLO view(s) were taken. Technologist: Tami Rey, Technologist Prior study comparison: January 15, 2017, digital mammo diagnostic bilateral performed at [facility]. August 09, 2014, bilateral digital mammo screening bilat performed at [facility]. FINDINGS: There are scattered fibroglandular densities. There has been no change in the appearance of the mammogram from the prior studies. There is a mild amount of residual fibroglandular tissue which is fairly symmetric. There is no interval development of dominant mass, architectural distortion, or clustered microcalcification suggestive of malignancy. Assessment: BI-RADS/ACR category 1 mammogram. Negative Mammogram. Recommendation Routine screening mammogram in 1 year (for women over age 40). This mammogram was interpreted with the aid of an FDA-approved computer-aided dectection system. Electronically Signed By: Brian Roper MD 02/03/19 [id number]
== END ==
LOC: M RAD 12:06
PROVIDERS: ATTEND Nurse Practitioner Family
DX: N64.4 Mastodynia (principal)
CPT/HCPCS: 77066; G0279

== ENCOUNTER → 2019-02-18 | Outpatient (REF) | payer MEDICARE, MEDICAID ==
[~2019-02-18] MED LIST changes: +AMLO25TA PO; +DULO1CAP6 PO; +METF500T13 PO; +MULTCAP PO; +TYLETAB14 PO; +ZOFR4TAB16 PO
== END ==
LOC: M LAB REF 10:33
PROVIDERS: ATTEND Urology
DX: R19.7 Diarrhea, unspecified (principal)

== ENCOUNTER 2019-03-07 12:08 | Day surgery (SDC) | payer MEDICARE, MEDICAID ==
[~2019-03-07] VITALS: Ht 160 cm; Wt 76.2 kg
[~2019-03-07 12:08] MED LIST changes: +NS 1,000 ML IV ONE
[2019-03-07] MEDS ORDERED: LIDOCAINE 2% INJ 100 MG/5 ML SDV (FOR ANES.) As Ordered ONE (12:14)
[2019-03-07] MEDS ORDERED: PROPOFOL 200 MG/20 ML VIAL As Ordered ONE (12:14)
[2019-03-07] MEDS ORDERED: ONDANSETRON 4MG/2ML VIAL (J2405) As Ordered ONE (13:10)
[2019-03-07 14:11] VITALS: BP 136/76
--- NOTE | 2019-03-07 14:14 | ROOR ---
Patient Name: Wan Roper Procedure Date: 03/07/2019 12:53 PM Date of : 1950 Age: 68 Room: [facility] Gender: Female Note Status: Finalized Procedure: Upper GI endoscopy Indications: Follow-up of Oneil's esophagus Providers: Jude Pagan MD Referring MD: Rakesh Kate MD Requesting Provider: Medicines: Monitored Anesthesia Care Complications: No immediate complications. Procedure: Pre-Anesthesia Assessment: - Prior to the procedure, a History and Physical was performed, and patient medications and allergies were reviewed. The patient is competent. The risks and benefits of the procedure and the sedation options and risks were discussed with the patient. All questions were answered and informed consent was obtained. Patient identification and proposed procedure were verified by the physician, the nurse and the anesthesiologist in the procedure room. Mental Status Examination: alert and oriented. Airway Examination: normal oropharyngeal airway and neck mobility. Respiratory Examination: clear to auscultation. CV Examination: normal. Prophylactic Antibiotics: The patient does not require prophylactic antibiotics. Prior Anticoagulants: The patient has taken Eliquis (apixaban), last dose was 3 days prior to procedure. ASA Grade Assessment: III - A patient with severe systemic disease. After reviewing the risks and benefits, the patient was deemed in satisfactory condition to undergo the procedure. The anesthesia plan was to use monitored anesthesia care (MAC). Immediately prior to administration of medications, the patient was re-assessed for adequacy to receive sedatives. The heart rate, respiratory rate, oxygen saturations, blood pressure, adequacy of pulmonary ventilation, and response to care were monitored throughout the procedure. The physical status of the patient was re-assessed after the procedure. The Endoscope was introduced through the mouth, and advanced to the afferent and efferent jejunal loops. The upper GI endoscopy was accomplished without difficulty. The patient tolerated the procedure well. Findings: The esophagus and gastroesophageal junction were examined with white light and narrow band imaging (NBI). There were esophageal mucosal changes consistent with long-segment Oneil's esophagus. These changes involved the mucosa along an irregular Z-line (31 cm from the incisors). Two tongues of salmon-colored mucosa were present from 31 to 34 cm. The maximum longitudinal extent of these esophageal mucosal changes was 3 cm in length. Mucosa was biopsied with a cold forceps for histology. One specimen bottle was sent to pathology. Verification of patient identification for the specimen was done by the physician and nurse using the patient's name, date and medical record number. A large hiatal hernia was present. Evidence of a Anshul-en-Y gastrojejunostomy was found. The gastrojejunal anastomosis was characterized by healthy appearing mucosa. This was traversed. The bxlsd-bx-xgyuhem limb was characterized by healthy appearing mucosa. The jejunojejunal anastomosis was characterized by healthy appearing mucosa. The xkadibgk-dr-pxmuckg limb was not examined as it could not be found. Scattered mild inflammation characterized by erythema and granularity was found in the gastric body. Biopsies were taken with a cold forceps for Helicobacter pylori testing. The examined jejunum was normal. Biopsies for histology were taken with a cold forceps for evaluation of celiac disease. 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 Biopsied. - Large hiatal hernia. - Anshul-en-Y gastrojejunostomy with gastrojejunal anastomosis characterized by healthy appearing mucosa. - Gastritis. Biopsied. - Normal examined jejunum. Biopsied. Recommendation: - Patient has a contact number available for emergencies. The signs and symptoms of potential delayed complications were discussed with the patient. Return to normal activities tomorrow. Written discharge instructions were provided to the patient. - High fiber diet. - Continue present medications. - Resume Eliquis (apixaban) at prior dose tomorrow. - Follow an antireflux regimen. - Recommend acid suppression medication. - Await pathology results. - Repeat upper endoscopy in 1 - 3 years for surveillance based on pathology results. - Telephone GI clinic for pathology results in 2 weeks. - Return to primary care physician. Jude Pagan MD Jude Pagan MD 03/07/2019 2:13:29 PM Electronically signed by Jude Pagan MD Number of Addenda: 0 Note Initiated On: 03/07/2019 12:53 PM Estimated Blood Loss: Estimated blood loss was minimal.
--- NOTE | 2019-03-07 14:25 | ROOR ---
Patient Name: Wan Roper Procedure Date: 03/07/2019 12:54 PM Date of : 1950 Age: 68 Room: [facility] Gender: Female Note Status: Finalized Procedure: Colonoscopy Indications: Chronic diarrhea Providers: Jude Pagan MD Referring MD: Rakesh Kate MD Requesting Provider: Medicines: Monitored Anesthesia Care Complications: No immediate complications. Procedure: Pre-Anesthesia Assessment: - Prior to the procedure, a History and Physical was performed, and patient medications and allergies were reviewed. The patient is competent. The risks and benefits of the procedure and the sedation options and risks were discussed with the patient. All questions were answered and informed consent was obtained. Patient identification and proposed procedure were verified by the physician, the nurse and the anesthesiologist in the procedure room. Mental Status Examination: alert and oriented. Airway Examination: normal oropharyngeal airway and neck mobility. Respiratory Examination: clear to auscultation. CV Examination: normal. Prophylactic Antibiotics: The patient does not require prophylactic antibiotics. Prior Anticoagulants: The patient has taken Eliquis (apixaban), last dose was 3 days prior to procedure. ASA Grade Assessment: III - A patient with severe systemic disease. After reviewing the risks and benefits, the patient was deemed in satisfactory condition to undergo the procedure. The anesthesia plan was to use monitored anesthesia care (MAC). Immediately prior to administration of medications, the patient was re-assessed for adequacy to receive sedatives. The heart rate, respiratory rate, oxygen saturations, blood pressure, adequacy of pulmonary ventilation, and response to care were monitored throughout the procedure. The physical status of the patient was re-assessed after the procedure. The Colonoscope was introduced through the anus and advanced to the terminal ileum, with identification of the appendiceal orifice and IC valve. The colonoscopy was performed without difficulty. The patient tolerated the procedure well. The quality of the bowel preparation was good. The terminal ileum, ileocecal valve, appendiceal orifice, and rectum were photographed. Scope insertion time was 3 minutes. Scope withdrawal time was 8 minutes. The total duration of the procedure was 12 minutes. Findings: The perianal and digital rectal examinations were normal. The terminal ileum appeared normal. Four sessile polyps were found in the ascending colon. The polyps were 4 to 6 mm in size. These polyps were removed with a cold biopsy forceps. Resection and retrieval were complete. Verification of patient identification for the specimen was done by the physician and nurse using the patient's name, date and medical record number. Estimated blood loss was minimal. Normal mucosa was found in the entire colon. Biopsies for histology were taken with a cold forceps from the right colon, left colon and rectosigmoid colon for evaluation of microscopic colitis. External and internal hemorrhoids were found during retroflexion. The hemorrhoids were medium-sized. Impression: - The examined portion of the ileum was normal. - Four 4 to 6 mm polyps in the ascending colon, removed with a cold biopsy forceps. Resected and retrieved. - Normal mucosa in the entire examined colon. Biopsied. - External and internal hemorrhoids. Recommendation: - Patient has a contact number available for emergencies. The signs and symptoms of potential delayed complications were discussed with the patient. Return to normal activities tomorrow. Written discharge instructions were provided to the patient. - High fiber diet. - Continue present medications. - Await pathology results. - Resume Eliquis (apixaban) at prior dose tomorrow. Refer to primary physician for further adjustment of therapy. - Repeat colonoscopy in 3 - 5 years for surveillance based on pathology results. - Telephone GI clinic for pathology results in 2 weeks. - Return to primary care physician. Jude Pagan MD Jude Pagan MD 03/07/2019 2:24:45 PM Electronically signed by Jude Pagan MD Number of Addenda: 0 Note Initiated On: 03/07/2019 12:54 PM Estimated Blood Loss: Estimated blood loss was minimal.
== END 2019-03-07 14:32 | disposition home or self-care (01) ==
LOC: M OPP 12:08
PROVIDERS: ATTEND Internal Medicine Gastroenterology
DX: K64.8 Other hemorrhoids (principal); D12.2 Benign neoplasm of ascending colon; K52.9 Noninfective gastroenteritis and colitis, unspecified; K22.70 Barrett's esophagus without dysplasia; K44.9 Diaphragmatic hernia without obstruction or gangrene; Z98.84 Bariatric surgery status; K29.70 Gastritis, unspecified, without bleeding; Z79.899 Other long term (current) drug therapy; Z95.5 Presence of coronary angioplasty implant and graft
CPT/HCPCS: 43239; 45380; 88305; J2405

== ENCOUNTER → 2019-06-20 | Outpatient (CLI) | payer MEDICARE, MEDICAID ==
[~2019-06-20] MED LIST changes: -NS 1,000 ML IV ONE; +ONDA8TAB10 PO; -ONDA8TAB7 PO; -TRAZ-163 PO; +TRAZ-257 PO
[2019-06-20 15:09] LABS: BASO # 0.1 10^3/uL (0.0-0.2); BASO % 0.6 % (0.0-1.0); EOS # 0.1 10^3/uL (0.0-0.5); EOS % 1.2 % (0.0-3.0); HEMATOCRIT 44.4 % (36.0-47.0); LYMPH # 2.6 10^3/uL (1.5-5.0); LYMPH % 33.2 % (24.0-44.0); MEAN CORPUSCULAR HGB CONC 31.5 g/dl (32.0-36.5); MEAN CORPUSCULAR VOLUME 98.2 fl (80.0-96.0); MONO # 0.4 10^3/uL (0.0-0.8); MONO % 4.9 % (0.0-5.0); NEUTROPHILS # 4.6 10^3/uL (1.5-8.5); NEUTROPHILS % 59.8 % (36.0-66.0); PLATELET COUNT, AUTOMATED 300 10^3/uL (150-450); RED BLOOD COUNT 4.52 10^6/uL (4.00-5.40); WHITE BLOOD COUNT 7.7 10^3/uL (4.0-10.0)
[2019-06-20 15:32] LABS: RHEUMATOID FACTOR QUANT < 10.0 IU/ML (<15.0)
[2019-06-20 15:41] LABS: ERYTHROCYTE SEDIMENTATION RATE 29 mm/hr (0-30)
[2019-06-20 15:43] LABS: VITAMIN B12 LEVEL 891 PG/ML
[2019-06-20 15:44] LABS: FOLATE > 24.0 NG/ML
[2019-06-22 14:07] LABS: ANTINUCLEAR ANTIBODIES DIRECT Negative (Negative)
== END ==
LOC: M LAB 14:22
PROVIDERS: ATTEND Physician Assistant Medical
DX: R41.3 Other amnesia (principal); R51 Headache

== ENCOUNTER → 2019-06-22 | Outpatient (REF) | payer MEDICARE, MEDICAID ==
[~2019-06-22] MED LIST changes: -ARTIDRO2 OU; +POLYOPD OU
[2019-06-22 17:45] LABS: HEMOGLOBIN A1c 5.5 %
== END ==
LOC: M SFHCCLAY 12:35
PROVIDERS: ATTEND Family Medicine
DX: E11.9 Type 2 diabetes mellitus without complications (principal)
CPT/HCPCS: 83036; G0463

== ENCOUNTER → 2019-07-31 | Outpatient (CLI) | payer MEDICARE, MEDICAID ==
[2019-07-31 14:26] LABS: BLOOD UREA NITROGEN 16 MG/DL (7-18); CREATININE FOR GFR 0.59 MG/DL (0.55-1.30); GLOMERULAR FILTRATION RATE > 60.0 (>45)
== END ==
LOC: M LAB 13:15
PROVIDERS: ATTEND Internal Medicine Gastroenterology
DX: R19.7 Diarrhea, unspecified (principal); K86.81 Exocrine pancreatic insufficiency; R63.4 Abnormal weight loss

== ENCOUNTER → 2019-08-07 | Outpatient (CLI) | payer MEDICARE, MEDICAID ==
[~2019-08-07] MED LIST changes: +GASTROGRAFIN SOLUTION 30ML (Q9963) As Ordered ONE; +ISOVUE-370 76% 100ML VIAL (Q9967) As Ordered ONE
--- NOTE | 2019-08-07 15:01 | REP ---
CT ABDOMEN AND PELVIS WITHOUT AND WITH IV CONTRAST: WITH ORAL CONTRAST. HISTORY: Unintentional weight loss, abdominal pain, persistent diarrhea. Evaluate for pancreatic abnormality and intra-abdominal lymphadenopathy versus mass. CT CONTRAST DOSE: 100 mL of intravenous Isovue 370. No comparison CT study. CT findings: Digital preliminary cavity pump operator radiograph demonstrates a pacemaker in the right heart, clips in right upper quadrant, and bilateral hip prostheses. Bowel gas pattern is unremarkable. The lung bases show bibasilar lower lobe linear fibrosis versus atelectasis. There is a moderate size sliding type hiatal hernia. No pleural or pericardial effusion is seen. There are clips in the gallbladder post cholecystectomy. The liver is somewhat prominent in size with a midclavicular line vertical span of 19.7 cm. The common bile duct is dilated post cholecystectomy at 16 mm in right to left dimension by 13 mm anteroposterior. There is mild intrahepatic biliary ductal dilation. The patient is status post gastric bypass procedure. No abnormalities noted in the spleen. Normal adrenal glands are seen bilaterally. No pancreatic mass is observed. 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 No renal mass lesion is observed. There is a 12 mm cyst in the upper pole of the right kidney. No hydronephrosis or renal stone is seen. Some vascular calcification is seen in the aorta. Small and large bowel loops are unremarkable in the abdomen and pelvis. There is some spray artifact from the hip prosthetic components across the pelvic scans. A normal appendix is seen in the right lower quadrant. No abdominal mass or adenopathy is seen. Urinary bladder, uterus and adnexal regions are largely obscured by the spray artifact from the hip prostheses. No bony destructive lesion. IMPRESSION: Post cholecystectomy with mild biliary ductal dilation intrahepatic and extrahepatic. Descending duodenal diverticulum. No pancreatic abnormality is seen. Post gastric bypass with hiatal hernia. No other gastrointestinal tract abnormality is seen. Electronically Signed by Dave Chavarria MD 08/07/2019 03:24 P
== END ==
LOC: M RAD 12:32
PROVIDERS: ATTEND Internal Medicine Gastroenterology
DX: Z95.0 Presence of cardiac pacemaker (principal); Z98.84 Bariatric surgery status; K44.9 Diaphragmatic hernia without obstruction or gangrene; R19.7 Diarrhea, unspecified
CPT/HCPCS: 74178; Q9963; Q9967

== ENCOUNTER → 2020-08-22 | Outpatient (CLI) | payer MEDICARE, MEDICAID ==
[~2020-08-22] MED LIST changes: -AMLO10TA5 PO; +AMLO1TAB25 PO; +ASCO250T20 PO; -ASPI81TA85 PO; +ASPI81TA86 PO; +CALC600T63 PO; -CALCTAB6 PO; +CYAN500T14 PO; -CYAN500T8 PO; -CYAN500T9 PO; +GABA-282 PO; -GABA-843 PO; -GASTROGRAFIN SOLUTION 30ML (Q9963) As Ordered ONE; -ISOVUE-370 76% 100ML VIAL (Q9967) As Ordered ONE; -METF-700 PO; -METF-791 PO; +METF-818 PO; +METF-838 PO; -VITA1TAB23 PO; +VITA500T37 PO
--- NOTE | 2020-08-22 13:13 | REPMRS ---
Patient History The patient states she has not had a clinical breast exam in over a year. Family history of breast cancer at age 50 in maternal aunt, prostate cancer in maternal uncle. 3D TOMOSYNTHESIS WAS PERFORMED. [facility] lifetime risk for breast cancer is 6.1%. Volpara breast density b. Digital Woman Screen Mammo: August 22, 2020 - Exam #: [id number] Bilateral CC and MLO view(s) were taken. Technologist: Tami Rey, Technologist Prior study comparison: February 03, 2019, digital mammo diagnostic bilateral, performed at [facility]. January 15, 2017, digital mammo diagnostic bilateral, performed at [facility]. FINDINGS: There are scattered fibroglandular densities. There has been no change in the appearance of the mammogram from the prior studies. There is a mild amount of residual fibroglandular tissue which is fairly symmetric. There is no interval development of dominant mass, architectural distortion, or clustered microcalcification suggestive of malignancy. Assessment: BI-RADS/ACR category 1 mammogram. Negative Mammogram. Recommendation Routine screening mammogram in 1 year (for women over age 40). This mammogram was interpreted with the aid of an FDA-approved computer-aided dectection system. Electronically Signed By: Brian Roper MD 08/22/20 [id number]
== END ==
LOC: M WHC 12:03
PROVIDERS: ATTEND Family Medicine
DX: Z12.31 Encounter for screening mammogram for malignant neoplasm of breast (principal); Z80.9 Family history of malignant neoplasm, unspecified

== ENCOUNTER → 2020-12-06 | Outpatient (CLI) | payer MEDICARE, MEDICAID ==
[~2020-12-06] MED LIST changes: +GABA-283 PO; -GABA-845 PO
[2020-12-06 16:54] LABS: BASO % 0.6 % (0.0-1.0); EOS # 0.1 10^3/uL (0.0-0.5); EOS % 2.2 % (0.0-3.0); HEMATOCRIT 39.6 % (36.0-47.0); HEMOGLOBIN 13.1 g/dl (12.0-15.5); LYMPH # 2.6 10^3/uL (1.5-5.0); LYMPH % 47.5 % (24.0-44.0); MEAN CORPUSCULAR HEMOGLOBIN 33.7 pg (27.0-33.0); MEAN CORPUSCULAR HGB CONC 33.1 g/dl (32.0-36.5); MEAN CORPUSCULAR VOLUME 101.8 fl (80.0-96.0); MONO # 0.4 10^3/uL (0.0-0.8); MONO % 7.6 % (2.0-8.0); NEUTROPHILS # 2.3 10^3/uL (1.5-8.5); NEUTROPHILS % 41.7 % (36.0-66.0); PLATELET COUNT, AUTOMATED 240 10^3/uL (150-450); RED BLOOD COUNT 3.89 10^6/uL (4.00-5.40); WHITE BLOOD COUNT 5.4 10^3/uL (4.0-10.0)
[2020-12-06 17:14] LABS: IRON (FE) 58 UG/DL (50-170); PERCENT SATURATION 23.4 % (13.2-45.0); TOTAL IRON BINDING CAPACITY 248 UG/DL (250-450)
[2020-12-06 17:25] LABS: VITAMIN B12 LEVEL 747 PG/ML
[2020-12-06 17:26] LABS: FOLATE > 24.0 NG/ML
== END ==
LOC: M LAB 16:19
PROVIDERS: ATTEND Internal Medicine Gastroenterology
DX: R19.7 Diarrhea, unspecified (principal)

== ENCOUNTER → 2021-02-19 | Outpatient (CLI) | payer MEDICARE, MEDICAID ==
[~2021-02-19] MED LIST changes: +ACET300T52 PO; +CALC600T60 PO; +ERGO500029 PO; +LOSA100T50 PO
== END ==
LOC: M LABSMTC 10:29
PROVIDERS: ATTEND Anesthesiology
DX: Z01.812 Encounter for preprocedural laboratory examination (principal)

== ENCOUNTER 2021-02-24 12:09 | Day surgery (SDC) | payer MEDICARE, MEDICAID ==
[~2021-02-24] VITALS: Ht 160 cm; Wt 73.8 kg
[~2021-02-24 12:09] MED LIST changes: +NS 1,000 ML IV ONE
[2021-02-24] MEDS ORDERED: LIDOCAINE 2% 100MG/5ML SDV (FOR ANES.) As Ordered ONE (12:28)
[2021-02-24] MEDS ORDERED: propofoL 500 MG/50 ML VIAL As Ordered ONE (12:28)
[2021-02-24] MEDS ORDERED: fentaNYL 100 MCG/2 ML INJECTION (J3010) As Ordered ONE (12:28)
--- NOTE | 2021-02-24 14:03 | ROOR ---
Patient Name: Wan Roper Procedure Date: 02/24/2021 1:25 PM Date of : 1950 Age: 70 Room: [facility] Gender: Female Note Status: Finalized Procedure: Upper GI endoscopy Indications: Follow-up of Oneil's esophagus Providers: Jude Pagan MD Referring MD: Rakesh Kate MD Requesting Provider: Medicines: Monitored Anesthesia Care Complications: No immediate complications. Procedure: Pre-Anesthesia Assessment: - Prior to the procedure, a History and Physical was performed, and patient medications and allergies were reviewed. The patient is competent. The risks and benefits of the procedure and the sedation options and risks were discussed with the patient. All questions were answered and informed consent was obtained. Patient identification and proposed procedure were verified by the physician, the nurse and the anesthesiologist in the procedure room. Mental Status Examination: alert and oriented. Airway Examination: normal oropharyngeal airway and neck mobility. Respiratory Examination: clear to auscultation. CV Examination: normal. Prophylactic Antibiotics: The patient does not require prophylactic antibiotics. Prior Anticoagulants: The patient has taken no previous anticoagulant or antiplatelet agents. ASA Grade Assessment: III - A patient with severe systemic disease. After reviewing the risks and benefits, the patient was deemed in satisfactory condition to undergo the procedure. The anesthesia plan was to use monitored anesthesia care (MAC). Immediately prior to administration of medications, the patient was re-assessed for adequacy to receive sedatives. The heart rate, respiratory rate, oxygen saturations, blood pressure, adequacy of pulmonary ventilation, and response to care were monitored throughout the procedure. The physical status of the patient was re-assessed after the procedure. The Endoscope was introduced through the mouth, and advanced to the afferent and efferent jejunal loops. The upper GI endoscopy was accomplished without difficulty. The patient tolerated the procedure well. Findings: There were esophageal mucosal changes consistent with short-segment Oneil's esophagus present in the lower third of the esophagus. The maximum longitudinal extent of these mucosal changes was 3 cm in length. Mucosa was biopsied with a cold forceps for histology in a targeted manner and in 4 quadrants in the lower third of the esophagus. One specimen bottle was sent to pathology. Verification of patient identification for the specimen was done by the physician and nurse using the patient's name, date and medical record number. Estimated blood loss was minimal. A medium-sized hiatal hernia was present. Evidence of a Anshul-en-Y gastrojejunostomy was found. The gastrojejunal anastomosis was characterized by healthy appearing mucosa and an intact appearance. This was traversed. The ftbqs-dq-tfepwlm limb was characterized by healthy appearing mucosa. The jejunojejunal anastomosis was characterized by healthy appearing mucosa. The pugbysbr-aq-pfqbzbo limb was not examined as it could not be found. Normal mucosa was found in the jejunum. 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 Biopsied. - Medium-sized hiatal hernia. - Anshul-en-Y gastrojejunostomy with gastrojejunal anastomosis characterized by healthy appearing mucosa and an intact appearance. - Normal mucosa was found in the jejunum. Recommendation: - Patient has a contact number available for emergencies. The signs and symptoms of potential delayed complications were discussed with the patient. Return to normal activities tomorrow. Written discharge instructions were provided to the patient. - Anti-acid reflux diet -- small meals, sit upright atleast 1 hour after meals, avoid fatty/ oily foods and avoid foods that cause reflux and Post gastric bypass diet (small frequent meals and avoid fatty/ fried foods). - Continue present medications. - Await pathology results. - Follow an antireflux regimen. - Telephone GI clinic for pathology results in 2 weeks. - Repeat upper endoscopy in 3 years for surveillance of Oneil's esophagus. - Return to GI clinic if persistent symptoms or new symptoms. - Return to primary care physician. Procedure Code(s): --- Professional --- 01671, Esophagogastroduodenoscopy, flexible, transoral; with biopsy, single or multiple Diagnosis Code(s): --- Professional --- K22.70, Oneil's esophagus without dysplasia K44.9, Diaphragmatic hernia without obstruction or gangrene Z98.0, Intestinal bypass and anastomosis status CPT copyright 2019 [employer]. All rights reserved. The codes documented in this report are preliminary and upon kit planner review may be revised to meet current compliance requirements. Jude Pagan MD Jude Pagan MD 02/24/2021 2:02:57 PM Electronically signed by Jude Pagan MD Number of Addenda: 0 Note Initiated On: 02/24/2021 1:25 PM Estimated Blood Loss: Estimated blood loss was minimal.
--- NOTE | 2021-02-24 14:25 | ROOR ---
Patient Name: Wan Roper Procedure Date: 02/24/2021 1:26 PM Date of : 1950 Age: 70 Room: [facility] Gender: Female Note Status: Finalized Procedure: Colonoscopy Indications: High risk colon cancer surveillance: Personal history of colonic polyps Providers: Jude Pagan MD Referring MD: Rakesh Kate MD Requesting Provider: Medicines: Monitored Anesthesia Care Complications: No immediate complications. Procedure: Pre-Anesthesia Assessment: - Prior to the procedure, a History and Physical was performed, and patient medications and allergies were reviewed. The patient is competent. The risks and benefits of the procedure and the sedation options and risks were discussed with the patient. All questions were answered and informed consent was obtained. Patient identification and proposed procedure were verified by the physician, the nurse and the anesthesiologist in the procedure room. Mental Status Examination: alert and oriented. Airway Examination: normal oropharyngeal airway and neck mobility. Respiratory Examination: clear to auscultation. CV Examination: normal. Prophylactic Antibiotics: The patient does not require prophylactic antibiotics. Prior Anticoagulants: The patient has taken Eliquis (apixaban), last dose was 2 days prior to procedure. ASA Grade Assessment: III - A patient with severe systemic disease. After reviewing the risks and benefits, the patient was deemed in satisfactory condition to undergo the procedure. The anesthesia plan was to use monitored anesthesia care (MAC). Immediately prior to administration of medications, the patient was re-assessed for adequacy to receive sedatives. The heart rate, respiratory rate, oxygen saturations, blood pressure, adequacy of pulmonary ventilation, and response to care were monitored throughout the procedure. The physical status of the patient was re-assessed after the procedure. The Colonoscope was introduced through the anus and advanced to the terminal ileum, with identification of the appendiceal orifice and IC valve. The colonoscopy was performed without difficulty. The patient tolerated the procedure well. The quality of the bowel preparation was good. The terminal ileum, ileocecal valve, appendiceal orifice, and rectum were photographed. Scope insertion time was 2 minutes. Scope withdrawal time was 10 minutes. The total duration of the procedure was 12 minutes. Findings: The perianal and digital rectal examinations were normal. The terminal ileum appeared normal. Normal mucosa was found in the entire colon. Biopsies for histology were taken with a cold forceps from the right colon and left colon for evaluation of microscopic colitis. Verification of patient identification for the specimen was done by the physician and nurse using the patient's name, date and medical record number. Estimated blood loss was minimal. Non-bleeding external and internal hemorrhoids were found during retroflexion. The hemorrhoids were medium-sized. Impression: - The examined portion of the ileum was normal. - Normal mucosa in the entire examined colon. Biopsied. - Non-bleeding external and internal hemorrhoids. Recommendation: - Patient has a contact number available for emergencies. The signs and symptoms of potential delayed complications were discussed with the patient. Return to normal activities tomorrow. Written discharge instructions were provided to the patient. - Anti-acid reflux diet -- small meals, sit upright atleast 1 hour after meals, avoid fatty/ oily foods and avoid foods that cause reflux and Post gastric bypass diet (small frequent meals and avoid fatty/ fried foods). - Resume Eliquis (apixaban) at prior dose today. Refer to primary physician for further adjustment of therapy. - Continue present medications. - Follow the recommendations as per the other procedure note. - Await pathology results. - Repeat colonoscopy in 5 years due to personal history of colon polyps in past Colonoscopy. - Telephone GI clinic for pathology results. - Return to GI clinic if persistent symptoms or new symptoms. - Return to primary care physician. Procedure Code(s): --- Professional --- 41258, Colonoscopy, flexible; with biopsy, single or multiple Diagnosis Code(s): --- Professional --- Z86.010, Personal history of colonic polyps K64.8, Other hemorrhoids CPT copyright 2019 [employer]. All rights reserved. The codes documented in this report are preliminary and upon institutional asset manager review may be revised to meet current compliance requirements. Jude Pagan MD Jude Pagan MD 02/24/2021 2:24:55 PM Electronically signed by Jude Pagan MD Number of Addenda: 0 Note Initiated On: 02/24/2021 1:26 PM Estimated Blood Loss: Estimated blood loss was minimal.
[2021-02-24 14:42] VITALS: BP 152/81
== END 2021-02-24 15:05 | disposition home or self-care (01) ==
LOC: M OPP 12:09
PROVIDERS: ATTEND Internal Medicine Gastroenterology
DX: Z12.11 Encounter for screening for malignant neoplasm of colon (principal); Z86.010 Personal history of colon polyps; K64.8 Other hemorrhoids; K22.70 Barrett's esophagus without dysplasia; K44.9 Diaphragmatic hernia without obstruction or gangrene; Z98.0 Intestinal bypass and anastomosis status; I50.32 Chronic diastolic (congestive) heart failure; I48.0 Paroxysmal atrial fibrillation; I11.0 Hypertensive heart disease with heart failure; Z79.899 Other long term (current) drug therapy; Z95.0 Presence of cardiac pacemaker
CPT/HCPCS: 43239; 45380; 88305; J3010

== ENCOUNTER → 2021-06-17 | Outpatient (CLI) | payer MEDICARE, MEDICAID ==
[~2021-06-17] MED LIST changes: +LOSA100T45 PO; -LOSA100T50 PO; +LOSA25TA13 PO; -LOSA25TA14 PO; -NS 1,000 ML IV ONE; +ONDA-84 PO; -ONDA8TAB10 PO; +TIZA10TA PO; -TIZA4TAB4 PO
== END ==
LOC: M CLY 14:32 → EDBD 14:32
PROVIDERS: ATTEND Physician Assistant
DX: M19.072 Primary osteoarthritis, left ankle and foot (principal); M85.872 Other specified disorders of bone density and structure, left ankle and foot

== ENCOUNTER → 2021-08-12 | Outpatient (CLI) | payer MEDICARE, MEDICAID ==
[2021-08-12 15:10] LABS: HEMATOCRIT 37.3 % (36.0-47.0); HEMOGLOBIN 12.1 g/dl (12.0-15.5); MEAN CORPUSCULAR HEMOGLOBIN 32.4 pg (27.0-33.0); MEAN CORPUSCULAR HGB CONC 32.4 g/dl (32.0-36.5); MEAN CORPUSCULAR VOLUME 99.7 fl (80.0-96.0); PLATELET COUNT, AUTOMATED 225 10^3/uL (150-450); RED BLOOD COUNT 3.74 10^6/uL (4.00-5.40); WHITE BLOOD COUNT 6.3 10^3/uL (4.0-10.0)
[2021-08-12 15:43] LABS: ALT/SGPT 24 U/L (12-78); BILIRUBIN,TOTAL 0.5 MG/DL (0.2-1.0); BLOOD UREA NITROGEN 17 MG/DL (7-18); CALCIUM LEVEL 8.8 MG/DL (8.8-10.2); CARBON DIOXIDE LEVEL 33 MEQ/L (21-32); CHLORIDE LEVEL 108 MEQ/L (98-107); CHOLESTEROL LEVEL 110 MG/DL (<200); CREATININE FOR GFR 0.82 MG/DL (0.55-1.30); GLOMERULAR FILTRATION RATE > 60.0 (>39); GLUCOSE, FASTING 203 MG/DL (70-100); POTASSIUM SERUM 4.5 MEQ/L (3.5-5.1); SODIUM LEVEL 143 MEQ/L (136-145); TRIGLYCERIDES LEVEL 95 MG/DL (<150)
[2021-08-12 15:44] LABS: CHOLESTEROL RISK RATIO 1.617 (<5); HDL CHOLESTEROL 68 MG/DL (>40); LDL CHOLESTEROL 23 MG/DL (<100); NON-HDL-C 42 MG/DL
== END ==
LOC: M LAB 14:37
PROVIDERS: ATTEND Physician Assistant
DX: I50.32 Chronic diastolic (congestive) heart failure (principal)

== ENCOUNTER → 2021-12-23 | Outpatient (REF) | payer MEDICARE, MEDICAID ==
[2021-12-23 17:35] LABS: BLOOD UREA NITROGEN 17 MG/DL (7-18); CALCIUM LEVEL 9.4 MG/DL (8.8-10.2); CARBON DIOXIDE LEVEL 32 MEQ/L (21-32); CHLORIDE LEVEL 107 MEQ/L (98-107); CREATININE FOR GFR 0.78 MG/DL (0.55-1.30); GLOMERULAR FILTRATION RATE > 60.0 (>39); GLUCOSE, FASTING 96 MG/DL (70-100); POTASSIUM SERUM 4.6 MEQ/L (3.5-5.1); SODIUM LEVEL 142 MEQ/L (136-145)
[2021-12-23 18:23] LABS: HEMOGLOBIN A1c 5.7 %
== END ==
LOC: M SFHCCLAY 10:00
PROVIDERS: ATTEND Family Medicine
DX: I10 Essential (primary) hypertension (principal); E11.9 Type 2 diabetes mellitus without complications

== ENCOUNTER → 2022-02-27 | Outpatient (REF) | payer MEDICARE, MEDICAID ==
[2022-02-27 11:44] LABS: HEMATOCRIT 35.9 % (36.0-47.0); HEMOGLOBIN 11.3 g/dl (12.0-15.5); MEAN CORPUSCULAR HEMOGLOBIN 31.3 pg (27.0-33.0); MEAN CORPUSCULAR HGB CONC 31.5 g/dl (32.0-36.5); MEAN CORPUSCULAR VOLUME 99.4 fl (80.0-96.0); PLATELET COUNT, AUTOMATED 327 10^3/uL (150-450); RED BLOOD COUNT 3.61 10^6/uL (4.00-5.40); WHITE BLOOD COUNT 7.1 10^3/uL (4.0-10.0)
[2022-02-27 12:04] LABS: BLOOD UREA NITROGEN 19 MG/DL (7-18); CALCIUM LEVEL 9.4 MG/DL (8.8-10.2); CARBON DIOXIDE LEVEL 34 MEQ/L (21-32); CHLORIDE LEVEL 102 MEQ/L (98-107); CREATININE FOR GFR 0.83 MG/DL (0.55-1.30); GLOMERULAR FILTRATION RATE > 60.0 (>39); GLUCOSE, FASTING 129 MG/DL (70-100); NT-PRO BNP 2373 PG/ML (<125); POTASSIUM SERUM 4.3 MEQ/L (3.5-5.1); SODIUM LEVEL 140 MEQ/L (136-145)
== END ==
LOC: M SFHCCLAY 08:16
PROVIDERS: ATTEND Family Medicine
DX: I48.0 Paroxysmal atrial fibrillation (principal); T85.898A Other specified complication of other internal prosthetic devices, implants and grafts, initial encounter; K28.9 Gastrojejunal ulcer, unspecified as acute or chronic, without hemorrhage or perforation

== ENCOUNTER → 2022-04-27 | Outpatient (CLI) | payer MEDICARE, MEDICAID | LOC: M CLY 08:43 | PROVIDERS: ATTEND Family Medicine | DX: M43.07 Spondylolysis, lumbosacral region (principal); Z90.49 Acquired absence of other specified parts of digestive tract ==

== ENCOUNTER → 2022-04-29 | Outpatient (CLI) | payer MEDICARE, MEDICAID | LOC: M CLY 11:00 | PROVIDERS: ATTEND Family Medicine | DX: M25.512 Pain in left shoulder (principal); M19.012 Primary osteoarthritis, left shoulder ==

== ENCOUNTER → 2022-07-07 | Outpatient (REF) | payer MEDICARE, MEDICAID | LOC: M SFHCCLAY 11:09 | PROVIDERS: ATTEND Family Medicine | DX: Z53.9 Procedure and treatment not carried out, unspecified reason (principal) ==

== ENCOUNTER → 2022-12-29 | Outpatient (CLI) | payer OTHER, MEDICAID ==
[~2022-12-29] MED LIST changes: +ARTIDRO4 OU; -COZA50TA PO; -GABA-283 PO; +GABA-284 PO; +LOSA-528 PO; -LOSA100T45 PO; +LOSA100T46 PO; -POLYOPD OU
== END ==
LOC: M PLAIMG 10:48
PROVIDERS: ATTEND Psychiatry & Neurology Neurology
DX: G25.0 Essential tremor (principal); G31.84 Mild cognitive impairment of uncertain or unknown etiology

== ENCOUNTER → 2023-01-15 | Outpatient (REF) | payer OTHER, MEDICAID ==
[2023-01-15 17:32] LABS: BASO # 0.1 10^3/uL (0.0-0.2); BASO % 0.4 % (0.0-1.0); EOS % 0.1 % (0.0-3.0); HEMOGLOBIN 8.8 g/dl (12.0-15.5); LYMPH # 2.4 10^3/uL (1.5-5.0); LYMPH % 16.3 % (24.0-44.0); MEAN CORPUSCULAR HEMOGLOBIN 32.8 pg (27.0-33.0); MEAN CORPUSCULAR HGB CONC 31.4 g/dl (32.0-36.5); MEAN CORPUSCULAR VOLUME 104.5 fl (80.0-96.0); MONO # 0.9 10^3/uL (0.0-0.8); MONO % 6.1 % (2.0-8.0); NEUTROPHILS # 11.5 10^3/uL (1.5-8.5); NEUTROPHILS % 76.5 % (36.0-66.0); PLATELET COUNT, AUTOMATED 474 10^3/uL (150-450); RED BLOOD COUNT 2.68 10^6/uL (4.00-5.40)
[2023-01-15 17:51] LABS: CALCIUM LEVEL 9.1 MG/DL (8.3-10.6); CREATININE FOR GFR 1.21 MG/DL (0.55-1.30); GLOMERULAR FILTRATION RATE 46.6 (>39); POTASSIUM SERUM 4.4 MMOL/L (3.5-5.1)
[2023-01-18 12:12] LABS: PERCENT SATURATION 9.5 % (13.2-45.0)
[2023-01-18 12:14] LABS: FOLATE 15.9 NG/ML (>5.4)
== END ==
LOC: M SFHCCLAY 14:24
PROVIDERS: ATTEND Family Medicine
DX: J18.9 Pneumonia, unspecified organism (principal)

== ENCOUNTER → 2023-01-17 | Outpatient (REF) | payer OTHER, MEDICAID | LOC: M SFHCCLAY 09:35 | PROVIDERS: ATTEND Family Medicine | DX: R19.7 Diarrhea, unspecified (principal) ==

== ENCOUNTER → 2023-01-19 | Outpatient (CLI) | payer OTHER, MEDICAID ==
[2023-01-19 13:52] LABS: ALBUMIN 2.8 G/DL (3.2-5.2); BILIRUBIN,DIRECT 0.2 MG/DL (<0.4); BILIRUBIN,TOTAL 0.3 MG/DL (0.3-1.2); CHOLESTEROL RISK RATIO 2.29 (<5); HDL CHOLESTEROL 40.9 MG/DL (>40); LDL CHOLESTEROL 32.1 MG/DL (<100); MAGNESIUM LEVEL 1.7 MG/DL (1.8-2.4); NON-HDL-C 53.1 MG/DL; TOTAL PROTEIN 6.9 G/DL (5.7-8.2)
== END ==
LOC: M LAB 11:50
PROVIDERS: ATTEND Physician Assistant
DX: I50.32 Chronic diastolic (congestive) heart failure (principal); E78.00 Pure hypercholesterolemia, unspecified; I48.0 Paroxysmal atrial fibrillation; I47.20 Ventricular tachycardia, unspecified

== ENCOUNTER → 2023-04-21 | Outpatient (CLI) | payer OTHER, MEDICAID | LOC: M CLY 14:36 | PROVIDERS: ATTEND Family Medicine | DX: M85.872 Other specified disorders of bone density and structure, left ankle and foot (principal) ==

== ENCOUNTER → 2023-04-28 | Outpatient (REF) | payer OTHER, MEDICAID | LOC: M SFHCCLAY 09:25 | PROVIDERS: ATTEND Family Medicine | DX: Z00.00 Encounter for general adult medical examination without abnormal findings (principal); D64.9 Anemia, unspecified; I10 Essential (primary) hypertension; E78.2 Mixed hyperlipidemia; M13.10 Monoarthritis, not elsewhere classified, unspecified site ==

== ENCOUNTER 2023-05-25 19:50 | Observation (INO) | payer OTHER, MEDICAID ==
[~2023-05-25] VITALS: Ht 160 cm; Wt 67.9 kg
[2023-05-25 21:10] LABS: VENOUS BASE EXCESS 1.5 (-2.0-2.0); VENOUS HCO3 26.4 MMOL/L (23.0-27.0); VENOUS O2 SATURATION 91.8 % (60.0-80.0); VENOUS PARTIAL PRESSURE CO2 43.1 mmHg (38.0-50.0); VENOUS PARTIAL PRESSURE O2 69.6 mmHg (30.0-50.0); VENOUS PH 7.405 UNITS (7.330-7.430); VENOUS STANDARD HCO3 25.7 MMOL/L; VENOUS TOTAL CO2 27.7 MMOL/L (24.0-28.0)
[2023-05-25 21:25] LABS: BASO % 0.4 % (0.0-1.0); HEMATOCRIT 30.9 % (36.0-47.0); HEMOGLOBIN 9.7 g/dl (12.0-15.5); LYMPH # 0.7 10^3/uL (1.5-5.0); LYMPH % 13.3 % (24.0-44.0); MEAN CORPUSCULAR HEMOGLOBIN 30.4 pg (27.0-33.0); MEAN CORPUSCULAR HGB CONC 31.4 g/dl (32.0-36.5); MEAN CORPUSCULAR VOLUME 96.9 fl (80.0-96.0); MONO # 0.2 10^3/uL (0.0-0.8); NEUTROPHILS # 4.1 10^3/uL (1.5-8.5); NEUTROPHILS % 81.9 % (36.0-66.0); PLATELET COUNT, AUTOMATED 267 10^3/uL (150-450); RED BLOOD COUNT 3.19 10^6/uL (4.00-5.40); WHITE BLOOD COUNT 5.1 10^3/uL (4.0-10.0)
[2023-05-25 21:44] LABS: CK-MB VALUE MASS 2.4 NG/ML (<3.6)
[2023-05-25 21:45] LABS: CPK CREATINE PHOSPHOKINASE 52 U/L (34-145); MB/CK RELATIVE INDEX 4.61 (< OR =4)
[2023-05-25 21:46] LABS: ALKALINE PHOSPHATASE 166 U/L (46-116); ALT/SGPT 20 U/L (7.0-40); AST/SGOT 26 U/L (<34); BILIRUBIN,DIRECT 0.2 MG/DL (<0.4); BILIRUBIN,TOTAL 0.4 MG/DL (0.3-1.2); BLOOD UREA NITROGEN 30 MG/DL (9-23); CALCIUM LEVEL 8.6 MG/DL (8.3-10.6); CARBON DIOXIDE LEVEL 27 MMOL/L (20-31); CHLORIDE LEVEL 109 MMOL/L (98-107); CREATININE FOR GFR 0.74 MG/DL (0.55-1.30); GLOMERULAR FILTRATION RATE > 60.0 (>39); GLUCOSE, FASTING 149 MG/DL (74-106); POTASSIUM SERUM 4.7 MMOL/L (3.5-5.1); SODIUM LEVEL 142 MMOL/L (136-145); TOTAL PROTEIN 6.1 G/DL (5.7-8.2)
[2023-05-25 21:48] LABS: THYROID STIMULATING HORMONE 1.651 uIU/ML (0.55-4.78); THYROXINE (T4) 7.7 UG/DL (4.5-10.9)
[2023-05-25 23:39] LABS: CK-MB VALUE MASS 1.7 NG/ML (<3.6)
[2023-05-25 23:48] LABS: MB/CK RELATIVE INDEX 3.26 (< OR =4)
[2023-05-26] MEDS ORDERED: ONDANSETRON 4MG 2ML VIAL IV ONE (02:50)
[2023-05-26] MEDS ORDERED: PANTOPRAZOLE 40MG VIAL IV ONE (02:50)
[2023-05-26 03:02] LABS: CK-MB VALUE MASS 1.6 NG/ML (<3.6); CPK CREATINE PHOSPHOKINASE 55 U/L (34-145)
[2023-05-26] MEDS: GASTROGRAFIN SOLUTION 30ML PO SCH ×2 (03:10→03:36)
[2023-05-26] MEDS ORDERED: ISOVUE-370 76% 100ML VIAL As Ordered ONE (04:28)
[2023-05-26] MEDS ORDERED: MOM 30ML SUSPENSION UDC PO PRN (06:10)
[2023-05-26] MEDS ORDERED: ALBUTEROL 90 MCG/ACT 8GM HFA INHALER INH PRN (06:10)
[2023-05-26] MEDS ORDERED: ABIL1TAB11 PO (06:26)
[2023-05-26] MEDS ORDERED: ONDA8TAB8 PO (06:26)
[2023-05-26] MEDS ORDERED: FURO20TA2 PO (06:26)
[2023-05-26] MEDS ORDERED: ZINC50TA14 PO (06:26)
[2023-05-26] MEDS ORDERED: BACL10TA2 PO (06:26)
[2023-05-26] MEDS ORDERED: ATOR1TAB21 PO (06:26)
[2023-05-26] MEDS ORDERED: COLC0.6T47 PO (06:26)
[2023-05-26] MEDS ORDERED: HYDR-4570 PO (06:26)
[2023-05-26] MEDS ORDERED: ALBU8.5H INH (06:26)
[2023-05-26] MEDS ORDERED: SPIR-10 PO (06:26)
[2023-05-26] MEDS ORDERED: ELIQ5TAB PO (06:26)
[2023-05-26] MEDS ORDERED: SUCR1TAB56 PO (06:26)
[2023-05-26] MEDS ORDERED: NYST1POW9 TOP (06:26)
[2023-05-26] MEDS ORDERED: DIVA250T67 PO (06:26)
[2023-05-26] MEDS ORDERED: AMOX875T2 PO (06:26)
[2023-05-26] MEDS ORDERED: LOPE1CAP5 PO (06:26)
[2023-05-26] MEDS ORDERED: MUPI2OI EXT (06:26)
[2023-05-26] MEDS ORDERED: LOSA25TA13 PO (06:26)
[2023-05-26] MEDS ORDERED: DIPH12.529 PO (06:26)
[2023-05-26] MEDS ORDERED: HOME MED LIST COMPLETE! XX SCH (06:30)
[2023-05-26] MEDS ORDERED: PILL CUTTER 1 EACH XX PRN (07:05)
[2023-05-26] MEDS: GABAPENTIN 300 MG CAP PO SCH ×4 (08:41→20:59)
[2023-05-26] MEDS: atenoloL 50 MG TAB PO SCH ×2 (08:42→21:01)
[2023-05-26] MEDS: SPIRONOLACTONE 25 MG TAB PO SCH ×2 (08:42→16:31)
[2023-05-26] MEDS: FUROSEMIDE 40 MG TAB PO SCH ×2 (08:42→16:31)
[2023-05-26] MEDS: DULoxetine 30MG CAPSULE (CYMBALTA) PO SCH (08:42)
[2023-05-26] MEDS: APIXABAN 5 MG TAB (ELIQUIS) PO SCH ×2 (08:43→20:59)
[2023-05-26] MEDS: LOSARTAN 25 MG TAB PO SCH (08:43)
[2023-05-26] MEDS ORDERED: PANTOPRAZOLE 40MG TAB (PROTONIX) PO SCH (09:00)
[2023-05-26] MEDS ORDERED: DOCUSATE SODIUM 100MG CAPSULE PO SCH (09:00)
[2023-05-26] MEDS ORDERED: ONDANSETRON 4MG 2ML VIAL IV PRN (11:50)
[2023-05-26 12:09] LABS: ALBUMIN 3.2 G/DL (3.2-5.2); ALKALINE PHOSPHATASE 169 U/L (46-116); ALT/SGPT 19 U/L (7.0-40); AST/SGOT 24 U/L (<34); BILIRUBIN,TOTAL 0.6 MG/DL (0.3-1.2); BLOOD UREA NITROGEN 27 MG/DL (9-23); CALCIUM LEVEL 8.9 MG/DL (8.3-10.6); CARBON DIOXIDE LEVEL 27 MMOL/L (20-31); CHLORIDE LEVEL 109 MMOL/L (98-107); CREATININE FOR GFR 0.71 MG/DL (0.55-1.30); GLOMERULAR FILTRATION RATE > 60.0 (>39); GLUCOSE, FASTING 121 MG/DL (74-106); POTASSIUM SERUM 4.9 MMOL/L (3.5-5.1); SODIUM LEVEL 143 MMOL/L (136-145); TOTAL IRON BINDING CAPACITY 354 UG/DL (250-425); TOTAL PROTEIN 6.4 G/DL (5.7-8.2)
[2023-05-26 12:11] LABS: FERRITIN 57.8 NG/ML (7.3-270.7); FOLATE 22.6 NG/ML (>5.4); VITAMIN B12 LEVEL 1679 PG/ML (211-911)
[2023-05-26] MEDS: SUCRALFATE SUSP 1GM/10ML UD PO SCH ×3 (12:14→20:59)
[2023-05-26 12:18] LABS: HEMATOCRIT 29.1 % (36.0-47.0); HEMOGLOBIN 9.1 g/dl (12.0-15.5); MEAN CORPUSCULAR HEMOGLOBIN 30.1 pg (27.0-33.0); MEAN CORPUSCULAR HGB CONC 31.3 g/dl (32.0-36.5); MEAN CORPUSCULAR VOLUME 96.4 fl (80.0-96.0); PLATELET COUNT, AUTOMATED 268 10^3/uL (150-450); RED BLOOD COUNT 3.02 10^6/uL (4.00-5.40); WHITE BLOOD COUNT 4.6 10^3/uL (4.0-10.0)
[2023-05-26 14:00] VITALS: BP 130/83; TEMP 98.1; O2SAT 95
[2023-05-26] MEDS: IPRATROPIUM 0.5MG/ALBUTEROL 2.5MG INH SOL UD 3ML (DUONEB) NEB SCH ×2 (14:00→21:27)
[2023-05-26 15:54] LABS: IRON (FE) 36 UG/DL (50-170); PERCENT SATURATION 10.2 % (13.2-45.0)
[2023-05-26 20:00] VITALS: BP 130/88; TEMP 97.9; O2SAT 94
[2023-05-26] MEDS: PANTOPRAZOLE 40MG VIAL IV SCH (20:58)
[2023-05-26] MEDS ORDERED: DIVALPROEX 250MG TAB PO SCH (21:00)
[2023-05-26] MEDS ORDERED: MYRBETRIQ 50MG TABLET (PATIENT'S OWN MED) PO SCH (21:00)
[2023-05-26] MEDS ORDERED: ATORVASTATIN 20 MG TAB PO SCH (21:00)
[2023-05-26] MEDS ORDERED: traZODone 100 MG TAB PO SCH (21:00)
[2023-05-26] MEDS: ACETAMINOPHEN TAB 650MG DOSE (2X325MG) PO PRN (21:02)
[2023-05-27] MEDS ORDERED: UNRESOLVED PATIENT OWN MED ORDER XX SCH (00:01)
[2023-05-27] MEDS: IPRATROPIUM 0.5MG/ALBUTEROL 2.5MG INH SOL UD 3ML (DUONEB) NEB SCH ×2 (01:33→08:05)
[2023-05-27 06:00] VITALS: BP 119/87; TEMP 97.3; O2SAT 93
[2023-05-27] MEDS: ACETAMINOPHEN TAB 650MG DOSE (2X325MG) PO PRN (06:05)
[2023-05-27 06:26] LABS: BASO % 0.9 % (0.0-1.0); EOS % 1.1 % (0.0-3.0); HEMATOCRIT 28.2 % (36.0-47.0); HEMOGLOBIN 9.1 g/dl (12.0-15.5); LYMPH # 1.5 10^3/uL (1.5-5.0); LYMPH % 41.9 % (24.0-44.0); MEAN CORPUSCULAR HEMOGLOBIN 31.1 pg (27.0-33.0); MEAN CORPUSCULAR HGB CONC 32.3 g/dl (32.0-36.5); MEAN CORPUSCULAR VOLUME 96.2 fl (80.0-96.0); MONO # 0.2 10^3/uL (0.0-0.8); MONO % 6.3 % (2.0-8.0); NEUTROPHILS # 1.7 10^3/uL (1.5-8.5); NEUTROPHILS % 49.5 % (36.0-66.0); PLATELET COUNT, AUTOMATED 250 10^3/uL (150-450); RED BLOOD COUNT 2.93 10^6/uL (4.00-5.40); WHITE BLOOD COUNT 3.5 10^3/uL (4.0-10.0)
[2023-05-27] MEDS: SUCRALFATE SUSP 1GM/10ML UD PO SCH ×2 (07:21→12:20)
[2023-05-27 07:22] VITALS: BP 119/87
[2023-05-27] MEDS: atenoloL 50 MG TAB PO SCH (07:22)
[2023-05-27] MEDS: LOSARTAN 25 MG TAB PO SCH (07:23)
[2023-05-27] MEDS: DULoxetine 30MG CAPSULE (CYMBALTA) PO SCH (07:23)
[2023-05-27] MEDS: GABAPENTIN 300 MG CAP PO SCH ×2 (07:23→12:20)
[2023-05-27] MEDS: APIXABAN 5 MG TAB (ELIQUIS) PO SCH (07:24)
[2023-05-27] MEDS: SPIRONOLACTONE 25 MG TAB PO SCH (07:24)
[2023-05-27] MEDS: PANTOPRAZOLE 40MG VIAL IV SCH (07:24)
[2023-05-27] MEDS: FUROSEMIDE 40 MG TAB PO SCH (07:24)
[2023-05-27] MEDS ORDERED: FERROUS SULFATE 325MG TAB PO SCH (09:00)
[2023-05-27] MEDS ORDERED: FERR1TAB8 PO (10:15)
== END 2023-05-27 12:35 | disposition home or self-care (01) ==
LOC: EDBD 19:50 → M ED 19:50 → M ED INP 05-26 06:09 → INTOOBSV 05-26 06:09 → ENRESERV 05-26 13:26 → M MSPAV 05-26 14:05
PROVIDERS: ADMIT Family Medicine; ATTEND Internal Medicine
DX: R06.00 Dyspnea, unspecified (principal); B34.1 Enterovirus infection, unspecified; B34.8 Other viral infections of unspecified site; R09.02 Hypoxemia; R11.2 Nausea with vomiting, unspecified; R53.1 Weakness; R09.89 Other specified symptoms and signs involving the circulatory and respiratory systems; Z98.84 Bariatric surgery status; K22.70 Barrett's esophagus without dysplasia; R10.13 Epigastric pain; I48.0 Paroxysmal atrial fibrillation; D53.9 Nutritional anemia, unspecified; I11.0 Hypertensive heart disease with heart failure; I50.9 Heart failure, unspecified; R74.8 Abnormal levels of other serum enzymes; N39.41 Urge incontinence; E78.5 Hyperlipidemia, unspecified; F41.9 Anxiety disorder, unspecified; F32.A Depression, unspecified; M54.9 Dorsalgia, unspecified; G62.9 Polyneuropathy, unspecified; G89.29 Other chronic pain; Z95.0 Presence of cardiac pacemaker; J90 Pleural effusion, not elsewhere classified; Z90.49 Acquired absence of other specified parts of digestive tract; Z88.5 Allergy status to narcotic agent; Z88.8 Allergy status to other drugs, medicaments and biological substances; Z79.899 Other long term (current) drug therapy; Z79.01 Long term (current) use of anticoagulants
CPT/HCPCS: 36415; 71046; 71275; 74177; 80048; 80053; 80076; 82550; 82553; 82607; 82728; 82746; 82803; 83550; 83605; 83880; 84436; 84443; 84484; 85025; 85027; 87040; 87486; 87581; 87633; 87798; 93005; 93041; 94640; 94760; 96374; 96375; 96376; 97110; 97161; 97165; 99285; C9113; G0378; J2405; Q9963; Q9967

== ENCOUNTER → 2023-07-07 | Outpatient (REF) | payer OTHER, MEDICAID ==
[~2023-07-07] MED LIST changes: +ABIL1TAB11 PO; +ALBU8.5H INH; +AMOX875T2 PO; +ATOR1TAB21 PO; +BACL10TA2 PO; +COLC0.6T47 PO; +DIPH12.529 PO; +DIVA250T67 PO; +FERR1TAB8 PO; +FURO20TA2 PO; +HYDR-4570 PO; +LOPE1CAP5 PO; +MUPI2OI EXT; +NYST1POW9 TOP; +ONDA8TAB8 PO; +SPIR-10 PO; +SUCR1TAB56 PO; +ZINC50TA14 PO
[2023-07-07 18:16] LABS: HEMATOCRIT 34.5 % (36.0-47.0); HEMOGLOBIN 10.7 g/dl (12.0-15.5); MEAN CORPUSCULAR HEMOGLOBIN 31.4 pg (27.0-33.0); MEAN CORPUSCULAR VOLUME 101.2 fl (80.0-96.0); PLATELET COUNT, AUTOMATED 279 10^3/uL (150-450); RED BLOOD COUNT 3.41 10^6/uL (4.00-5.40)
[2023-07-07 18:42] LABS: CALCIUM LEVEL 8.5 MG/DL (8.3-10.6); CREATININE FOR GFR 1.39 MG/DL (0.55-1.30); GLOMERULAR FILTRATION RATE 39.7 (>39)
== END ==
LOC: M SFHCCLAY 11:20
PROVIDERS: ATTEND Family Medicine
DX: I48.91 Unspecified atrial fibrillation (principal); I50.32 Chronic diastolic (congestive) heart failure; K52.9 Noninfective gastroenteritis and colitis, unspecified

== ENCOUNTER 2023-09-17 08:44 | Day surgery (SDC) | payer OTHER, MEDICAID ==
[~2023-09-17] VITALS: Ht 160 cm; Wt 60.8 kg
[~2023-09-17 08:44] MED LIST changes: +D31000CA4 PO; +MEMA1TAB3 PO; +NS 1,000 ML IV ONE; +VITA1CAP25 PO
[2023-09-17] MEDS ORDERED: propofoL 200 MG/20 ML VIAL As Ordered ONE (09:14)
[2023-09-17] MEDS ORDERED: ONDANSETRON 4MG 2ML VIAL As Ordered ONE (09:51)
[2023-09-17 10:07] VITALS: TEMP 97.1
[2023-09-17 10:40] VITALS: BP 107/68; O2SAT 99
== END 2023-09-17 11:16 | disposition home or self-care (01) ==
LOC: M OPP 08:44
PROVIDERS: ATTEND Internal Medicine Gastroenterology
DX: D50.9 Iron deficiency anemia, unspecified (principal); K20.90 Esophagitis, unspecified without bleeding; K44.9 Diaphragmatic hernia without obstruction or gangrene; Z98.0 Intestinal bypass and anastomosis status; Z98.84 Bariatric surgery status; Z87.19 Personal history of other diseases of the digestive system; I10 Essential (primary) hypertension; E78.00 Pure hypercholesterolemia, unspecified; E03.9 Hypothyroidism, unspecified; Z79.899 Other long term (current) drug therapy; Z79.01 Long term (current) use of anticoagulants; Z95.0 Presence of cardiac pacemaker; G47.30 Sleep apnea, unspecified
CPT/HCPCS: 43239; 88305; J2405

== ENCOUNTER → 2023-10-08 | Outpatient (REF) | payer OTHER, MEDICAID ==
[~2023-10-08] MED LIST changes: -NS 1,000 ML IV ONE
[2023-10-08 17:33] LABS: BLOOD UREA NITROGEN 23 MG/DL (9-23); CALCIUM LEVEL 9.3 MG/DL (8.3-10.6); CARBON DIOXIDE LEVEL 29 MMOL/L (20-31); CHLORIDE LEVEL 106 MMOL/L (98-107); CREATININE FOR GFR 0.85 MG/DL (0.55-1.30); GLOMERULAR FILTRATION RATE > 60.0 (>39); GLUCOSE, FASTING 81 MG/DL (74-106); POTASSIUM SERUM 4.8 MMOL/L (3.5-5.1); SODIUM LEVEL 141 MMOL/L (136-145)
== END ==
LOC: M SFHCCLAY 09:54
PROVIDERS: ATTEND Family Medicine
DX: I50.30 Unspecified diastolic (congestive) heart failure (principal)

== ENCOUNTER → 2024-01-21 | Outpatient (REF) | payer OTHER, MEDICAID ==
[~2024-01-21] MED LIST changes: +GABA-1490 PO; -GABA600T4 PO; +ONDA-284 PO; -ONDA8TAB8 PO
[2024-01-21 18:09] LABS: BASO % 0.4 % (0.0-1.0); EOS % 0.7 % (0.0-3.0); HEMATOCRIT 37.6 % (36.0-47.0); HEMOGLOBIN 12.4 g/dl (12.0-15.5); LYMPH # 1.6 10^3/uL (1.5-5.0); LYMPH % 30.1 % (24.0-44.0); MEAN CORPUSCULAR HEMOGLOBIN 33.7 pg (27.0-33.0); MEAN CORPUSCULAR VOLUME 102.2 fl (80.0-96.0); MONO # 0.4 10^3/uL (0.0-0.8); MONO % 6.9 % (2.0-8.0); NEUTROPHILS # 3.3 10^3/uL (1.5-8.5); NEUTROPHILS % 61.5 % (36.0-66.0); PLATELET COUNT, AUTOMATED 220 10^3/uL (150-450); RED BLOOD COUNT 3.68 10^6/uL (4.00-5.40); WHITE BLOOD COUNT 5.4 10^3/uL (4.0-10.0)
[2024-01-21 18:33] LABS: ALBUMIN 3.2 G/DL (3.2-5.2); ALKALINE PHOSPHATASE 78 U/L (46-116); ALT/SGPT 13 U/L (7.0-40); AST/SGOT 14 U/L (<34); BILIRUBIN,TOTAL 0.4 MG/DL (0.3-1.2); BLOOD UREA NITROGEN 24 MG/DL (9-23); CALCIUM LEVEL 9.2 MG/DL (8.3-10.6); CARBON DIOXIDE LEVEL 30 MMOL/L (20-31); CHLORIDE LEVEL 109 MMOL/L (98-107); CREATININE FOR GFR 0.92 MG/DL (0.55-1.30); GLOMERULAR FILTRATION RATE > 60.0 (>39); GLUCOSE, FASTING 54 MG/DL (74-106); POTASSIUM SERUM 4.7 MMOL/L (3.5-5.1); SODIUM LEVEL 143 MMOL/L (136-145)
[2024-01-21 18:43] LABS: HEMOGLOBIN A1c 5.6 % (4.0-6.0)
[2024-01-25 13:57] LABS: FREE T4 1.05 NG/DL (0.89-1.76); THYROID STIMULATING HORMONE 6.128 uIU/ML (0.55-4.78)
== END ==
LOC: M SFHCCLAY 15:15
PROVIDERS: ATTEND Family Medicine
DX: Z00.00 Encounter for general adult medical examination without abnormal findings (principal); K27.9 Peptic ulcer, site unspecified, unspecified as acute or chronic, without hemorrhage or perforation; I10 Essential (primary) hypertension; E78.2 Mixed hyperlipidemia; M13.10 Monoarthritis, not elsewhere classified, unspecified site; Z79.899 Other long term (current) drug therapy

== ENCOUNTER → 2024-02-25 | Outpatient (REF) | payer OTHER, MEDICAID ==
[~2024-02-25] MED LIST changes: +GABA-1172 PO; -GABA-282 PO
== END ==
LOC: M LAB REF 11:52
PROVIDERS: ATTEND Nurse Practitioner Family
DX: R19.7 Diarrhea, unspecified (principal)

== ENCOUNTER → 2024-05-04 | Outpatient (CLI) | payer OTHER, MEDICAID ==
[~2024-05-04] MED LIST changes: +METF-1157 PO; -METF-818 PO; +NYST1POW3 TOP; -NYST1POW9 TOP
== END ==
LOC: M CLY 09:25
PROVIDERS: ATTEND Physician Assistant
DX: R63.4 Abnormal weight loss (principal)

== ENCOUNTER → 2024-05-04 | Outpatient (REF) | payer OTHER, MEDICAID ==
[2024-05-04 13:07] LABS: BASO % 0.4 % (0.0-1.0); EOS % 0.4 % (0.0-3.0); HEMATOCRIT 40.9 % (36.0-47.0); HEMOGLOBIN 13.6 g/dl (12.0-15.5); LYMPH # 1.7 10^3/uL (1.5-5.0); MEAN CORPUSCULAR HGB CONC 33.3 g/dl (32.0-36.5); MEAN CORPUSCULAR VOLUME 102.3 fl (80.0-96.0); MONO # 0.4 10^3/uL (0.0-0.8); MONO % 7.8 % (2.0-8.0); NEUTROPHILS # 2.4 10^3/uL (1.5-8.5); NEUTROPHILS % 54.2 % (36.0-66.0); PLATELET COUNT, AUTOMATED 220 10^3/uL (150-450); WHITE BLOOD COUNT 4.5 10^3/uL (4.0-10.0)
[2024-05-04 13:40] LABS: VALPROIC ACID (DEPAKOTE) < 3.0 UG/ML (50.0-100.0)
[2024-05-04 13:42] LABS: ALBUMIN 3.1 G/DL (3.2-5.2); ALKALINE PHOSPHATASE 88 U/L (35-104); ALT/SGPT 17 U/L (7.0-40); AST/SGOT 28 U/L (<34); BILIRUBIN,TOTAL 0.9 MG/DL (0.3-1.2); BLOOD UREA NITROGEN 18 MG/DL (9-23); CALCIUM LEVEL 9.2 MG/DL (8.3-10.6); CARBON DIOXIDE LEVEL 31 MMOL/L (20-31); CHLORIDE LEVEL 104 MMOL/L (98-107); CREATININE FOR GFR 0.95 MG/DL (0.55-1.30); GLOMERULAR FILTRATION RATE > 60.0 (>39); GLUCOSE, FASTING 78 MG/DL (74-106); POTASSIUM SERUM 4.6 MMOL/L (3.5-5.1); SODIUM LEVEL 140 MMOL/L (136-145)
[2024-05-04 13:43] LABS: THYROID STIMULATING HORMONE 6.298 uIU/ML (0.55-4.78)
[2024-05-04 13:44] LABS: FREE T4 1.11 NG/DL (0.89-1.76)
== END ==
LOC: M SFHCCLAY 09:20
PROVIDERS: ATTEND Physician Assistant
DX: R63.4 Abnormal weight loss (principal)

== ENCOUNTER → 2024-05-26 | Outpatient (REF) | payer OTHER, MEDICAID ==
[2024-05-26 17:13] LABS: BASO % 0.4 % (0.0-1.0); EOS % 0.1 % (0.0-3.0); HEMATOCRIT 36.6 % (36.0-47.0); LYMPH # 1.1 10^3/uL (1.5-5.0); LYMPH % 15.4 % (24.0-44.0); MEAN CORPUSCULAR HEMOGLOBIN 34.3 pg (27.0-33.0); MEAN CORPUSCULAR HGB CONC 32.8 g/dl (32.0-36.5); MEAN CORPUSCULAR VOLUME 104.6 fl (80.0-96.0); MONO # 0.5 10^3/uL (0.0-0.8); MONO % 6.3 % (2.0-8.0); NEUTROPHILS # 5.5 10^3/uL (1.5-8.5); NEUTROPHILS % 77.5 % (36.0-66.0); PLATELET COUNT, AUTOMATED 238 10^3/uL (150-450); WHITE BLOOD COUNT 7.1 10^3/uL (4.0-10.0)
[2024-05-26 17:15] LABS: IRON (FE) 35 UG/DL (50-170)
[2024-05-26 17:16] LABS: ALBUMIN 3.2 G/DL (3.2-5.2); ALKALINE PHOSPHATASE 88 U/L (35-104); ALT/SGPT 15 U/L (7.0-40); AST/SGOT 17 U/L (<34); BILIRUBIN,TOTAL 0.4 MG/DL (0.3-1.2); BLOOD UREA NITROGEN 33 MG/DL (9-23); CARBON DIOXIDE LEVEL 31 MMOL/L (20-31); CHLORIDE LEVEL 104 MMOL/L (98-107); CHOLESTEROL LEVEL 154 MG/DL (<200); CREATININE FOR GFR 0.88 MG/DL (0.55-1.30); FERRITIN 38.2 NG/ML (7.3-270.7); FOLATE 21.04 NG/ML (>5.4); FREE T4 1.08 NG/DL (0.89-1.76); GLOMERULAR FILTRATION RATE > 60.0 (>39); GLUCOSE, FASTING 105 MG/DL (74-106); HDL CHOLESTEROL 76.7 MG/DL (>40); LDL CHOLESTEROL 57.9 MG/DL (<100); NON-HDL-C 77.3 MG/DL; PERCENT SATURATION 14.2 % (13.2-45.0); POTASSIUM SERUM 4.1 MMOL/L (3.5-5.1); SODIUM LEVEL 141 MMOL/L (136-145); THYROID STIMULATING HORMONE 4.584 uIU/ML (0.55-4.78); TOTAL IRON BINDING CAPACITY 247 UG/DL (250-425); TOTAL PROTEIN 6.1 G/DL (5.7-8.2); TRIGLYCERIDES LEVEL 97 MG/DL (<150)
[2024-05-26 17:17] LABS: VITAMIN B12 LEVEL 389 PG/ML (211-911)
[2024-05-26 17:37] LABS: HEMOGLOBIN A1c 4.4 % (4.0-6.0)
== END ==
LOC: M SFHCCLAY 10:02
PROVIDERS: ATTEND Nurse Practitioner Family
DX: A04.72 Enterocolitis due to Clostridium difficile, not specified as recurrent (principal); J30.89 Other allergic rhinitis; L30.4 Erythema intertrigo; I11.0 Hypertensive heart disease with heart failure; I48.0 Paroxysmal atrial fibrillation; K27.9 Peptic ulcer, site unspecified, unspecified as acute or chronic, without hemorrhage or perforation; E78.2 Mixed hyperlipidemia; Z98.84 Bariatric surgery status; E03.9 Hypothyroidism, unspecified; E11.9 Type 2 diabetes mellitus without complications; F33.1 Major depressive disorder, recurrent, moderate; D50.9 Iron deficiency anemia, unspecified; Z86.73 Personal history of transient ischemic attack (TIA), and cerebral infarction without residual deficits; Z87.19 Personal history of other diseases of the digestive system

== ENCOUNTER → 2024-09-19 | Outpatient (REF) | payer OTHER, MEDICAID ==
[~2024-09-19] MED LIST changes: +MORP-138 PO; -MORP15TASA PO; +TOPI-257 PO; -TOPI100T9 PO
== END ==
LOC: M SFHCCLAY 11:48
PROVIDERS: ATTEND Nurse Practitioner Family
DX: A04.72 Enterocolitis due to Clostridium difficile, not specified as recurrent (principal); R19.7 Diarrhea, unspecified

== ENCOUNTER 2024-11-06 06:25 | Day surgery (SDC) | payer OTHER, MEDICAID ==
[~2024-11-06] VITALS: Ht 160 cm; Wt 58.5 kg
[~2024-11-06 06:25] MED LIST changes: +CREO3600 PO; +GLYCOPYRROLATE INJ 0.2 MG/ML 2 ML VIAL As Ordered ONE; +HYDR-3364 PO; -HYDR-4570 PO; +JARD1TAB PO; +LIDOCAINE 2% 100 MG/5 ML SDV (FOR ANES.) As Ordered ONE; +MEMA10TA PO; +TRAZ1TAB14 PO; +VITA100T14 PO; +ePHEDrine INJ 50 MG/ML 1 ML VIAL As Ordered ONE; +propofoL 200 MG/20 ML VIAL As Ordered ONE
[2024-11-06] MEDS ORDERED: PHENYLephrine 500MCG 5ML (100MCG/ML) SYRINGE As Ordered ONE (11:17)
[2024-11-06 11:46] VITALS: TEMP 97.5
[2024-11-06 12:02] VITALS: BP 119/69; O2SAT 98
== END 2024-11-06 12:36 | disposition home or self-care (01) ==
LOC: M OPP 06:25
PROVIDERS: ATTEND Internal Medicine Gastroenterology
DX: D12.5 Benign neoplasm of sigmoid colon (principal); D12.4 Benign neoplasm of descending colon; K64.8 Other hemorrhoids; Z86.0100 Personal history of colon polyps, unspecified; K22.89 Other specified disease of esophagus; K22.70 Barrett's esophagus without dysplasia; K44.9 Diaphragmatic hernia without obstruction or gangrene; Z98.84 Bariatric surgery status; R12 Heartburn; Z86.73 Personal history of transient ischemic attack (TIA), and cerebral infarction without residual deficits; Z95.0 Presence of cardiac pacemaker; G47.30 Sleep apnea, unspecified; Z79.01 Long term (current) use of anticoagulants; Z79.899 Other long term (current) drug therapy
CPT/HCPCS: 43239; 45380; 45385; 88305; J1596; J2371

== ENCOUNTER → 2025-01-12 | Outpatient (REF) | payer OTHER, MEDICAID ==
[~2025-01-12] MED LIST changes: -GLYCOPYRROLATE INJ 0.2 MG/ML 2 ML VIAL As Ordered ONE; -LIDOCAINE 2% 100 MG/5 ML SDV (FOR ANES.) As Ordered ONE; -VITA100T14 PO; +VITA100T69 PO; -ePHEDrine INJ 50 MG/ML 1 ML VIAL As Ordered ONE; -propofoL 200 MG/20 ML VIAL As Ordered ONE
[2025-01-12 18:17] LABS: ALT/SGPT 47.0 U/L (7.0-40); AST/SGOT 36.0 U/L (<34); CALCIUM LEVEL 9.4 MG/DL (8.3-10.6); CARBON DIOXIDE LEVEL 28.0 MMOL/L (20-31); CHLORIDE LEVEL 110.0 MMOL/L (98-107); CHOLESTEROL LEVEL 109.0 MG/DL (<200); CHOLESTEROL RISK RATIO 2.01 (<5); CREATININE FOR GFR 0.88 MG/DL (0.55-1.30); GLOMERULAR FILTRATION RATE 68.9 (>39); LDL CHOLESTEROL 31.7 MG/DL (<100); NON-HDL-C 54.9 MG/DL; POTASSIUM SERUM 4.3 MMOL/L (3.5-5.1); SODIUM LEVEL 146.0 MMOL/L (136-145); TRIGLYCERIDES LEVEL 116.0 MG/DL (<150)
[2025-01-12 18:19] LABS: FREE T4 1.06 NG/DL (0.89-1.76)
[2025-01-12 18:40] LABS: ESTIMATED AVERAGE GLUCOSE 128.0 MG/DL (60-110)
== END ==
LOC: M SFHCCLAY 09:52
PROVIDERS: ATTEND Physician Assistant
DX: I48.0 Paroxysmal atrial fibrillation (principal); I10 Essential (primary) hypertension; E03.9 Hypothyroidism, unspecified; E11.9 Type 2 diabetes mellitus without complications

== ENCOUNTER → 2025-01-15 | Outpatient (CLI) | payer OTHER, MEDICAID ==
[~2025-01-15] MED LIST changes: +ISOVUE-370 76% 100 ML VIAL ONE
== END ==
LOC: M PLAIMG 14:44
PROVIDERS: ATTEND Nurse Practitioner Family
DX: R60.1 Generalized edema (principal); R19.7 Diarrhea, unspecified; K86.81 Exocrine pancreatic insufficiency
CPT/HCPCS: 74177; Q9967